=== PATIENT | male | born 1995 | race African-American/Black ===

== ENCOUNTER 2025-04-18 19:17 | Emergency (ER) | payer OTHER, SELFPAY ==
--- OUTSIDE RECORDS SUMMARY | 2025-04-13 08:15 | XMS_ITS ---
Author Organization [facility] [employer] Address [address] [place] [address] Care Team Providers Care Crystalizer Name Role Phone Jahaira Mcmillan Primary Care Provider Michael Estrada Unavailable [phone] Allergies No Known Allergies REASON FOR VISIT ER FU-abdominal pain on left-mn, Consent forms on file-VS, Tele Video MED Established, Visit conducted by TeleVideo Social History Sex Assigned At : Social History Observation Description Sex Assigned At Male Problems Problem Type SNOMED Code ICD Code Onset Dates Problem Status W/U Status Risk Notes Problem Information temporarily unavailable Thrombocytopenia (D69.6) Active confirmed Encounters Encounter Location Date Provider Diagnosis [facility] [address] [place] [id number] 04/13/2025 Michael Estrada Left lower quadrant pain R10.32 ; Thrombocytopenia D69.6 and Hepatosplenomegaly R16.2 Assessments Encounter Date Diagnosis (ICD Code) Assessment Notes Treatment Notes Treatment Clinical Notes Section Notes 04/13/2025 Left lower quadrant pain (ICD-10 - R10.32) Reviewed ER note - advised him to call [facility] for follow up appointment given persistent pain. Scheduled in person for with pcp. Advised if he hasn't heard from hematology by to let pcp know and discuss referral. Continue tylenol as needed for pain. Reviewed severe abd swelling or unexplained bleeding as ER return precautions. Coding: Use UPDATED E&M code. Also applies when carrying over a previous visit. 04/13/2025 Thrombocytopenia (ICD-10 - D69.6) Coding: Use UPDATED E&M code. Also applies when carrying over a previous visit. 04/13/2025 Hepatosplenomegaly (ICD-10 - R16.2) Coding: Use UPDATED E&M code. Also applies when carrying over a previous visit. Plan Of Treatment Treatment Notes Assessment Notes Left lower quadrant pain Reviewed ER not e - advised him to call [facility] for follow up appointment given persistent pain. Scheduled in person for with pcp. Advised if he hasn't heard from hematology by to let pcp know and discuss referral. Continue tylenol as needed for pain. Reviewed severe abd swelling or unexplained bleeding as ER return precautions. Next Appt Details Follow Up: prn, Reason: Progress Notes * Neil KING CarloOB: (29 yo M)Acc No.[id number]:04/13/2025 Patient: Neil HINTONquan Provider: TRI Savage :1995 A ge:29 Y S ex:Male Date:04/13/2025 External Visit ID:[id number] Address:[address] [place] [address] Pcp:Jahaira Mcmillan Subjective: * Chief Complaints: * E R FU-abdominal pain on left-mn, Consent forms on file-VSTele Video MED EstablishedVisit conducted by TeleVideo * HPI: T elehealth Video Session: Telehealth Video Consents V erbal telehealth consent: Yesenia y Name is __. This visit is occurring via audio-visual. You can opt-out or refuse at any time. Do I have your consent (or consent for your minor child) for this audio-visual visit? I s written consent in patient documents: Y es Telehealth Video Visit Verifications P dayanadelaida states they joined from a secure and private location. Y shante P atient's Location A t home B H Need: Warm Hand Off W ould patient benefit from behavioral health services N o G eneral: 29 y/o male for ER f/u abd pain CT scan showed: Probable volume overload Mild hepatosplenomegaly Nonspecific enterocolic edema Trace ascites CBC showed thrombocytopenia and received referral from ER to hematology He hasn't received phone call from them as of yet Continues with LLQ pain +constipation Severe pain started after taking edible He did have endoscopy/colonoscopy in 2023 Previously seen by [facility]. * ROS: A ll other pertinent ROS negative, other than those listed above and in the HPI. * Medical History: * Medications: N one * Allergies: N .K.D.A.no[Allergies Verified] Objective: * Vitals: * Examination: G eneral Examination: General Appearance: a lert, no acute distress. Neck: s upple. Lungs: s peaking in complete sentences without sob. Skin: n ormal, no rash. Psych: a ppropriate. Assessment: * Assessment: 1. L eft lower quadrant pain - R10.32 (Primary) 2 . T hrombocytopenia - D69.6 3 . H epatosplenomegaly - R16.2 Coding: Use UPDATED E&M code . Also applies when carrying over a previous visit. Plan: * Treatment: * Procedure Codes: 1 159F MED LIST DOCD IN [id number] RVW MEDS BY RX/DR IN [facility] * Follow Up: p rn * Billing Information: * Visit Code: 70180 Est Pt Video Visit, MDM Low or more than 20min (frm. 25865). * Procedure Codes: 1159F MED LIST DOCD IN [facility]. 1160F RVW MEDS BY RX/DR IN [facility]. * Sign off status: Completed true * Provider: TRI Savage Date: 04/13/2025 Generated for Nelida Israel/Tomy on: 04/18/2025 08:12 PM EDT History and Physical Notes * HPI (History of Present Illness) Category Sub-Category Detail Notes Category Not es BH Need Warm Hand Off Would patient benefit from behavioral health services: No Telehealth Video Session Telehealth Video Consents Verbal telehealth consent:: My Name is __. This visit is occurring via audio-visual. You can opt-out or refuse at any time. Do I have your consent (or consent for your minor child) for this audio-visual visit? Is written consent in patient documents: : Yes Telehealth Video Visit Verifications Pat ient states they joined from a secure and private location.: Yes Patient's Location: At home Examination Category Sub-Category Detail Notes Category Not es General Examination Neck: supple Lungs: speaking in complete sentences without sob General Appearance: alert, no acute dist ress Skin: normal, no rash Psych: appropriate
--- OUTSIDE RECORDS SUMMARY | 2025-04-16 05:00 | XMS_ITS ---
Author Organization [facility] Address [address] [place] [address] Care Team Providers Care Freelance Displayer Name Role Phone Jahaira Mcmillan Primary Care Provider Allergies No Known Allergies REASON FOR VISIT follow up ER visit, persistent abdominal pain -GABRIEL // Rachelle confirmed 04/14/25 9:03am, Pt presents today with pain in LLQ, trouble walking into exam room, CHC BMI Above Normal Social History Tobacco Use: Social History Observation Description Date Details (start date - stop date) Never Smoker NA - NA Sex Assigned At : Social History Observation Description Sex Assigned At Male Smoking Question Answer Notes Are you a: never smoker Alcohol Question Answer Notes Did you have a drink contain ing alcohol in the past year? Yes How often did you have a dri nk containing alcohol in the last year Monthly or less (1 point) Points 1 Interpretation Negative Sexual History Question Answer Notes Had sex in the past 12 months Yes with Both Men and Women Vital Signs Temperature 98.4 degrees Fahrenheit 04/16/20 25 Blood pressure systolic 133 mm Hg 04/16/20 25 Blood pressure diastolic 76 mm Hg 025 Respiratory Rate 18 /min 04/16/2025 Height 69 in 04/16/2025 Weight 174.4 lbs 04/16/2025 BMI 25.75 kg/m2 04/16/2025 Oximetry 95 % 04/16/2025 Encounters Encounter Location Date Provider Diagnosis [address] [address] 04/16/2025 Jahaira Mcmillan Acute abdominal pain R10.9 ; Shortness of breath R06.02 and Thrombocytopenia D69.6 Assessments Encounter Date Diagnosis (ICD Code) Assessment Notes Treatment Notes Treatment Clinical Notes Section Notes 04/16/2025 Acute abdominal pain (ICD-10 - R10.9) 04/16/2025 Shortness of breath (ICD-10 - R06.02) 04/16/2025 Thrombocytopenia (ICD-10 - D69.6) -review of labs from ED visit demonstrating platelet count of 76. low chronic anemia evident per previous blood work, H/H improving from previous currently ~34. 04/16/2025 Other -Limited exam performed in favor of expedited transfer to higher level of care. -[facility] contacted and verbal report given to Mercedes through [facility] to notify of pending arrival. Plan Of Treatment Treatment Notes Assessment Notes Thrombocytopenia -review of labs from ED visit demonstrating platelet count of 76. low chronic anemia evident per previous blood work, H/H improving from previous currently ~. Other -Limited exam performed in favor of expedited transfer to higher level of care. -[facility] contacted and verbal report given to Mercedes through [facility] to notify of pending arrival. Progress Notes * PAULONeil CAR CarloOB: (29 yo M)Acc No.[id number]:04/16/2025 Progress Note Patient: Neil HINTON Provider: Nicole Mcmillan APRN :1995 A ge:29 Y S ex:Male Date:04/16/2025 External Visit ID:[id number] Address:[address] [place] [address] Subjective: * Chief Complaints: * 1 . follow up ER visit, persistent abdominal pain -GABRIEL // Rachelle confirmed 04/14/25 9:03am. 2. Pt presents today with pain in LLQ, trouble walking into exam room. 3. CHC BMI Above Normal. * HPI: P EG: Pain Functional Assessment W hat number best describes your pain on average in the past week? (Scale 0-10) 8 W hat number best describes how, during the past week, pain has interfered with your enjoyment of life? (Scale 0-10) 8 W hat number best describes how, during the past week, pain has interfered with your general activity? (Scale 0-10) 8 S core (Average of above, Scale 0-10): 8 .00 * Medical History: B ipolar disorder. * Social History: L anguage Spoken Language Spoken Case spring[employer] 07/16/2020 RHONDA H ow do you like To Learn : V isual P atient's perception of literacy I read well in: [employer] [facility] S mokers in household : yes, Pt states he smokes MJ. L iving With : self. M arital Status : single. O ccupation : hired at [employer]. S exually Active : heterosexual. S moking Are you a: n ever smoker A lcohol Did you have a drink containing alcohol in the past year? Y es How often did you have a drink containing alcohol in the last year M onthly or less (1 point) Points 1 Interpretation N egative * Allergies: N .K.D.A. Objective: * Vitals: M A/Nurse: [id number], Temp:98.4F, Ht: 69 in, Wt: 174.4 lbs, BMI:25.75Index, BP:133/76mm Hg, HR:68, RR:18, O2 Sat:95, Pain Scale: 10, Smoking: Never. * Physical Examination: Assessment: * Assessment: 1. S hortness of breath - R06.02 2 . A cute abdominal pain - R10.9 (Primary) 3 . T hrombocytopenia - D69.6 Plan: * Treatment: 2. O thers Notes: -Limited exam performed in favor of expedited transfer to higher level of care. -[facility] contacted and verbal report given to Mercedes through [facility] to notify of pending arrival. * Preventive Medicine: Patient Counseling: N utrition and Physical Activity Above Normal BMI Follow-up L tiffanyestyle education regarding diet,Giving encouragement to exercise * Billing Information: * Visit Code: * Procedure Codes: * Sign off status: Pending * Provider: Nicole Mcmillan APRN Date: 04/16/2025 Generated for Nelida mckeon/[place]/Tomy on: 04/18/2025 08:12 PM EDT History and Physical Notes * HPI (History of Present Illness) Category Sub-Category Detail Notes Category Not es PEG Pain Functional Assessment What number best describes your pain on average in the past week? (Scale 0-10): 8 What number best describes h ow, during the past week, pain has interfered with your enjoyment of life? (Scale 0-10): 8 What number best describes h ow, during the past week, pain has interfered with your general activity? (Scale 0-10): 8 Score (Average of above, Scale 0-10):: 8 .00
--- OUTSIDE RECORDS SUMMARY | 2025-04-16 09:40 | XMS_ITS | Encounter Summary ---
Author Organization Formerly [facility] Address [address] [place] [id number] Care Team Providers Care Shipping Clerk Name Role Phone [facility] Primary Care Provider + Reason for Visit * Reason Comments Abdominal Pain * Auth/Cert (Routine) Specialty Diagnoses / Procedures Referred By Contac t Referred To Contact Diagnoses Splenic infarct Procedures N/A Referral ID Status Reason Start Date Expiration Date Visits Re quested Visits Authorized [id number] 1 1 Encounter Details Date Type Department Care Team (Late st Contact Info) Description 04/16/2025 9:40 AM EDT - 04/18/2025 11:54 AM EDT Hospital Encounter [facility] [address] [place] [address] Patrick Harkins MD [address] [place] [address] Erma Ballesteros MD Hospitalist Program [address] [place] [address] Juliet Moralez MD [address] [place] [address] Chikis Costa MD [address] [place] [address] Splenic infarct (Primary Dx); Abdominal pain Discharge Disposition: Home or Self Care Social History Tobacco Use Types Packs/Day Years Used Date Smoking Tobacco: Never Smokeless Tobacco: Never Alcohol Use Standard Drinks/Week Comments Yes 0 (1 standard drink = 0.6 oz pur e alcohol) social [facility] Utilities Answer Date Recorded In the past 12 months has th e electric, gas, oil, or water company threatened to shut off services in your home? No 04/17/2025 AUDIT-C Answer Date Recorded Q1: How often do you have a drink containing alc ohol? Monthly or less 04/16/2025 Q2: How many drinks containi ng alcohol do you have on a typical day when you are drinking? 1 or 2 04/16/2025 Q3: How often do you have si x or more drinks on one occasion? Never 04/16/2025 PHQ-2 Answer Date Recorded PHQ-2 Total Score 2 04/16/2025 Hunger Vital Sign Answer Date Recorded Within the past 12 months, y ou worried that your food would run out before you got the money to buy more. Never true 04/17/20 25 Within the past 12 months, t he food you bought just didn't last and you didn't have money to get more. Never true 04/17/2025 PRAPARE - Transportation Answer Date Re corded In the past 12 months, has l ack of transportation kept you from medical appointments or from getting medications? No 03/21 In the past 12 months, has l ack of transportation kept you from meetings, work, or from getting things needed for daily living? No 04/17/2025 Housing Stability Vital Sign Answer Mont[place] e Recorded In the last 12 months, was t here a time when you were not able to pay the mortgage or rent on time? No 04/17/2025 In the past 12 months, how m any times have you moved where you were living? 0 04/17/2025 At any time in the past 12 m [place], were you homeless or living in a jail (including now)? No 04/17/2025 Sex and Gender Information Value Date Recorded Sex Assigned at Male 06/09/2023 8:17 AM EDT Legal Sex Male 6:41 PM EDT Gender Identity Male 06/09/2023 8:17 AM EDT Sexual Orientation Pansexual 04/28/2024 7: 04 AM EDT documented as of this encounter Last Filed Vital Signs Vital Sign Reading Time Taken Comments Blood Pressure 138/73 04/18/2025 7:19 AM EDT Pulse 64 04/18/2025 7:19 AM EDT Temperature 37.8 C (100 F) 04/18/2025 7:19 AM EDT Respiratory Rate 18 04/18/2025 7:19 AM EDT Oxygen Saturation 94% 04/18/2025 7:19 AM EDT Inhaled Oxygen Concentration - - Weight 78.2 kg (172 lb 6.4 oz) 04/16/2025 2:26 P M EDT Height 175.9 cm (5' 9.25 ) 04/16/2025 2:26 PM ED T Body Mass Index 25.27 04/16/2025 2:26 PM EDT documented in this encounter Functional Status * Audit-C Score Answer Date of Assessment Author 1 04/16/2025 2:00 PM EDT Elisabeth Connor RN * Question Answer Date of Assessment Author Q1: How often do you have a drink containing alcohol? Monthly or less 04/16/2025 2:00 PM EDT Elisabeth Connor RN Q2: How many drinks containing alcohol do you have on a typical day when you are drinking? 1 or 2 04/16/2025 2:00 PM EDT Elisabeth Connor RN Q3: How often do you have six or more drinks on one occasion? Never 04/16/2025 2:00 PM EDT Elisabeth Connor RN * Question Answer Date of Assessment Author Little interest or pleasure in doing things Several days 04/16/2025 2:00 PM EDT Elisabeth Connor RN Feeling down, depressed, or hopeless Several days 04/16/2025 2:00 PM EDT Elisabeth Connor RN * Over the past 2 weeks, how often have you been bothered by any of the following problems? Question Answer Date of Assessment Author Patient Health Questionnaire -2 Score 2 04/16/2025 2:00 PM EDT Elisabeth Connor RN documented as of this encounter Discharge Summaries * Chikis Costa MD - 04/18/2025 11:54 AM EDT Images from the original note were not included. Inpatient Discharge Summary [facility] Brief Overview Patient Demographics Name: Neil King :1995 Admission Date: 04/16/2025 Admitting Provider: Erma Ballesteros MD Discharge Date: 04/18/2025 Discharge Provider: No att. providers found Discharge Disposition: Home Or Self Care Primary Care Provider at Discharge: [facility] Primary Discharge Diagnosis Principal Problem: Splenic infarct (POA: Yes) Active Problems: Anemia (POA: Yes) Elevated bilirubin (POA: Yes) Thrombocytopenia (POA: Yes) Sickle cell trait (POA: Yes) Abdominal pain (POA: Unknown) Resolved Problems: Discharge Medications Discharge Medications NEW MEDICATIONS apixaban 5 MG tablet; Quantity: 180 tablet; Commonly known as: ELIQUIS; 5 mg, Oral, 2 times daily CONTINUED MEDICATIONS ARIPiprazole 10 MG tablet; Commonly known as: ABILIFY; 10 mg, Oral, Daily Future Appointments Date Time Provider Department Center 05/11/2025 3:00 PM Gary Jeffery MD [facility] Follow Up Information [facility] Sheldon Caicedo MD Specialty: Hematology Oncology, Medical Oncology Active Issues Requiring Follow-up Faculty Dean outpatient. Hb electrophoresis Incidental hospital findings:none Test Results Pending at Discharge Pending Labs Order Current Status Hemoglobin S Post Transfusion Assessment In process Details of Hospital Stay Presenting Problem/History of Present Illness 29 y.o. male with a history of sickle cell trait who was sent in by his PCP due to a 10-day historyof left upper quadrant abdominal pain. He was reportedly in excruciating pain at his PCPs office. Denied any nausea, vomiting, recent falls or trauma or other GI symptoms. On arrival vitals were within normal limits. Labs showed hemoglobin 10.4 which is close to baseline, T. bili 1.9, otherwise unremarkable. EKG showed sinus bradycardia with nonspecific ST abnormalities. CT abdomen pelvis showed splenomegaly with possible splenic infarcts. There was a question of splenic laceration. Patient wasevaluated by trauma surgery, laceration thought to be much less likely. Patient was admitted for further management of splenic infarcts. Hospital Course Splenic infarct Sickle cell trait Has history of sickle cell trait but no significant problems in the past Presented with left upper quadrant abdominal pain for about 1 week Imaging revealed question of splenic infarct versus laceration Echo showed normal biventricular systolic function, no LV thrombus Telemetry has shown NSR - Appreciate trauma surgery recommendations. No acute intervention, low suspicion for splenic laceration. - Appreciate hematology recommendations. Case was discussed with Dr. Caicedo. Patient was started onheparin infusion , he remained stable. Will transition him to [facility] Patient medically stable for discharge. Outpatient follow-up with bundle tier and labeler for further workup including thrombophilia workup Abdominal pain Presumably secondary to splenic infarct -Was managed with IV Dilaudid. The pain is better today, continue Tylenol as needed Anemia Chronic in the setting of sickle cell trait with some prior evidence of iron deficiency. Hemoglobin electrophoresis ordered , follow-up results with the bundle tier and labeler suspect patient - Patient Shinto, will not accept blood transfusion Elevated bilirubin No RUQ pain - Monitor as outpatient Thrombocytopenia In the setting of splenomegaly -Resolved Procedures: Diagnostic Studies: Notable labs are: Lab Results Component Value Date WBC 7.5 04/18/2025 HGB 11.3 (L) 04/18/2025 HCT 34.3 (L) 04/18/2025 PLT 164 04/18/2025 Lab Results Component Value Date NA 137 04/18/2025 K 4.3 04/18/2025 CL 98 04/18/2025 CO2 25 04/18/2025 BUN 10 04/18/2025 CREAT 1.0 04/18/2025 GLUC 91 04/18/2025 Lab Results Component Value Date CALCIUM 9.3 04/18/2025 MG 2.0 04/16/2025 Notable imaging : No results found. No results found. CTA Abdomen+pelvis w w/o contrast Result Date: 04/16/2025 Imaging Impression Splenomegaly 15 cm. Again noted are large multifocal areas of sharply demarcatedhypoattenuation, similar to prior exam. No evidence of active extravasation. Given history of sickle cell disease, most likely representing acute infarcts. Lacerations are considered less likely. Small amount of free fluid in the abdomen and pelvis, slightly increased since prior exam. No free air. CT Abdomen+pelvis w/contrast Result Date: 04/16/2025 Imaging Impression Splenomegaly and markedly abnormal spleen most consistent with splenic infarcts.Alternatively but less likely splenic laceration cannot be excluded. Correlate for trauma. In lightof the patient having sickle cell trait favor splenic infarction. CT Abdomen+pelvis w/contrast Result Date: 04/11/2025 Imaging Impression 1. Probable volume overload. 2. Mild hepatosplenomegaly. 3. Nonspecific enterocolic edema, may be secondary to systemic factors for enterocolitis. 4. Trace ascites. Wound/Incision Pictures: Physical Exam at Discharge Discharge Condition: good Last Vitals: Pulse:64,Resp:18,BP:138/73,SpO2:94 %,Weight: 78.2 kg (172 lb 6.4 oz) BMI: Body mass index is 25.27 kg/m??. Temp Last 24 hrs: Temp Min: 98.8 ??F (37.1 ??C) Max: 100 ??F (37.8 ??C) Physical Exam Constitutional: Appearance: Normal appearance. HENT: Head: Normocephalic and atraumatic. Eyes: Extraocular Movements: Extraocular movements intact. Pupils: Pupils are equal, round, and reactive to light. Cardiovascular: Rate and Rhythm: Normal rate and regular rhythm. Pulmonary: Effort: Pulmonary effort is normal. Breath sounds: Normal breath sounds. Abdominal: General: Abdomen is flat. Bowel sounds are normal. Palpations: Abdomen is soft. Tenderness: There is no abdominal tenderness. Musculoskeletal: Cervical back: Normal range of motion and neck supple. Neurological: Mental Status: He is alert. Discharge Orders No discharge procedures on file. Code Status: Code Status Procedures Full Code Activity Restrictions: (including driving, showering, working); Advised to avoid contact sports Time Spent on Discharge Total time spent for discharge:35 minutes Time was spent in educating the patient, making a comprehensive discharge plan and discussion with the staff regarding the discharge plan, medication reconciliation and discharge summary Chikis Costa MD 04/18/2025 2:36 PM documented in this encounter Medications at Time of Discharge ARIPiprazole (ABILIFY) 10 MG tablet Take 1 tablet (10 mg total) by mouth daily. apixaban (ELIQUIS) 5 MG tabletIndications :Splenic infarct Take 1 tablet (5 mg total) by mouth 2 (two) times a day. 180 tablet 04/18/2025 acetaminophen (TYLENOL) 325 MG tablet Take 650 mg by mouth 4 times daily (every 6 hours) as needed for mild pain. 11/08/2021 risperiDONE (RisperDAL) 2 MG tablet Take 4 mg by mouth nightly. 09/22/2021 11/08/2021 documented as of this encounter Progress Notes * Sheldon Caicedo MD - 04/18/2025 11:27 AM EDT Hematology/Oncology Note Name: Neil King Age: 29 y.o. Sex: male Subjective History of Present Illness Follow-up for patient with question of splenic infarct. Reported history of sickle trait. Stable otherwise. Excellent health in general. Hospitalized for evaluation of abdominal pain. Imaging with evidence of splenic infarct. Some concern about potential laceration but less likely. Initiated anticoagulation. Pain symptoms seem improved. Hemoglobin stable Review of Systems 5 Point review of systems was obtained. Pertinent positives and negatives outlined in the HPI. reports that he has never smoked. He has never used smokeless tobacco. Objective Medications: Review Allergies[1] Physical Exam Vitals: 04/17/25 2050 04/18/25 0045 04/18/25 0455 04/18/25 0719 BP: 130/74 138/73 BP Location: Left arm Left arm Patient Position: Lying Sitting Pulse: 63 64 Resp: 18 18 Temp: 98.8 ??F (37.1 ??C) 100 ??F (37.8 ??C) TempSrc: Oral Oral SpO2: 95% 93% 95% 94% Weight: Height: Patient is overall alert and oriented in no distress. Sclerae anicteric pupils equal round reactiveto light. Oropharynx is clear without erythema exudates. Neck supple without lymphadenopathy. Lungsclear to auscultation bilaterally without wheeze. Heart regular rate and rhythm without murmurs rubs gallops. Abdomen soft nontender nondistended. Lower extremities without edema. No skin rash. Labs: Labs reviewed Assessment & Plan Assessment Follow-up for patient with presumed splenic infarct. Plan 1. Splenic infarct-patient was initiated on anticoagulation with heparin overnight. Pain is improved. Less tender on exam. Would continue with anticoagulation. Reasonable to transition to direct oralanticoagulant. Rivaroxaban or apixaban. Will coordinate outpatient follow-up in 1 to 2 months. Primary question is overall duration of anticoagulation. May be a role for longer-term anticoagulation but can be discussed. Consider any need for thrombophilia and PNH evaluation. 2. Anemia-chronic anemia likely related to sickle trait. Hemoglobin electrophoresis is pending to confirm. Received IV iron.Will recheck moving forward and can further replete if needed. Sign: Sheldon Caicedo MD 04/18/2025 11:27 AM Oncology History: Oncology History No problem history exists. [No matching plan found] [1] No Known Allergies * Juliet Moralez MD - 04/17/2025 9:20 AM EDT Progress Note Hospital Day: 2, Admit Date: 04/16/2025 Assessment and plan: Mr. King is a 29 y.o. male with a history of sickle cell trait who was sent in by his PCP due toa 10-day history of left upper quadrant abdominal pain. He was reportedly in excruciating pain at his PCPs office. Denied any nausea, vomiting, recent falls or trauma or other GI symptoms. On arrivalvitals were within normal limits. Labs showed hemoglobin 10.4 which is close to baseline, T. bili 1.9, otherwise unremarkable. EKG showed sinus bradycardia with nonspecific ST abnormalities. CT abdomen pelvis showed splenomegaly with possible splenic infarcts. There was a question of splenic laceration. Patient was evaluated by trauma surgery, laceration thought to be much less likely. Patient was admitted for further management of splenic infarcts. Assessment & Plan Splenic infarct Sickle cell trait Has history of sickle cell trait but no significant problems in the past Presented with left upper quadrant abdominal pain for about 1 week Imaging revealed question of splenic infarct versus laceration Echo showed normal biventricular systolic function, no LV thrombus Telemetry has shown NSR - Appreciate trauma surgery recommendations. No acute intervention, low suspicion for splenic laceration. - Appreciate hematology recommendations. Case discussed with Dr. Caicedo. Will start heparin infusion and monitor for any bleeding given the above question of possible laceration. If he remains stableon heparin for the next 24 hours we will transition to DOAC tomorrow. - Continue fluids and supportive care Abdominal pain Presumably secondary to splenic infarct - Continue IV Dilaudid through today then will trial transition to oral pain medications Anemia Chronic in the setting of sickle cell trait with some prior evidence of iron deficiency. - Follow-up iron panel. Will replete with IV iron if low. - Hemoglobin electrophoresis ordered - Patient does not except blood transfusions, Shinto Elevated bilirubin No RUQ pain - Trend LFTs Thrombocytopenia In the setting of splenomegaly I have updated the Patient and addressed their concerns. Care plan was discussed with RN [facility] following: Dr. Caicedo We reviewed side effects of high risk medications: dilaudid Dispo: Home/independent Barriers to patient transition/ medical necessity requiring continued inpatient stay: Ongoing severe abdominal pain requiring IV opiate pain medications, remains on fluids, heparin infusion for 24 hours to monitor closely for bleeding Quality metrics: # Telemetry: Active Telemetry Order Indication - Other, Please Specify splenic infarcts, rule out arrythmia Continue Telemetry?: Yes Other splenic infarcts, rule out arrhythmia # Diet: Diet Regular # Code status: Full Code # Argueta catheter: No Active Urethral Catheter (Argueta) Order # Central lines: # Expected Date of Discharge: 04/17/2025 {Click to update LOBO: [id number]} VTE Time Out IMPROVE SCORE: 1 (04/16/2025 12:29 PM) Interpretation - Low Risk Chemical Prophylaxis heparin (porcine) 1000 unit/mL injection 6,300 Units Intravenous Once heparin (porcine) IV infusion 25,000 units in 500 mL 0.45% NaCl (premix) Intravenous Continuous heparin (porcine) 1000 unit/mL injection 2,300 Units Intravenous Every 6 hours PRN heparin (porcine) 1000 unit/mL injection 1,600 Units Intravenous Every 6 hours PRN Mechanical Prophylaxis SCDs are ordered - Bilateral (Knee High) Patient declined SCD use, Please review Subjective: Chief complaint Chief Complaint Patient presents with Abdominal Pain Patient is being seen for acute medical problems and follow-up for chronic medical issues as mentioned in the assessment and plan above. # Event overnight: No acute events reported Mr. King was seen earlier today. he reported feeling okay today. He is still having some abdominal pain, tells me it is a little better than yesterday but at worst is an 8/10. He does think the pain medication is helping. Objective: Last 3 Filed Values 04/16/25 1929 04/16/25 2359 04/17/25 0751 BP: (!) 147/65 134/77 (!) 146/84 Pulse: 77 62 68 Resp: (!) 22 18 17 Temp: 98.5 ??F (36.9 ??C) 98.6 ??F (37 ??C) 98.9 ??F (37.2 ??C) TempSrc: Oral Oral Oral SpO2: 96% 95% 93% SpO2 Min: 93 % Max: 96 % O2 Device: room air (none) Weight: on admission: 79.4 kg (175 lb), (04/16/2025 9:39 AM) Recent: 78.2 kg (172 lb 6.4 oz), (04/16/2025 2:26 PM) Last Documented Bowel Movement - 04/16/25 (04/16/25 1519) Intake/Output Summary (Last 24 hours) at 04/17/2025 0920 Last data filed at 04/17/2025 0600 Gross per 24 hour Intake 1270 ml Output 600 ml Net 670 ml Gen: resting in bed, no acute distress HEENT: NCAT, moist oral mucosa Pulm: Clear to auscultation bilaterally, no increased work of breathing, no accessory muscle use CV: RRR, S1-S2 auscultated with no murmurs, no JVD, no leg edema Abd: Soft, nontender, nondistended, bowel sounds active Ext: No edema bilaterally Skin: No suspicious rashes or palpable lesions : No CVA tenderness or suprapubic tenderness Neuro: Alert and oriented to person place and time, speech fluent, no facial asymmetry, moving all 4 extremities spontaneously, sensation grossly intact Scheduled medications 04/17/25 9:20 AM As needed medications: heparin (porcine), 80 Units/kg, Intravenous, Once senna-docusate, 2 tablet, Oral, Nightly acetaminophen bisacodyl heparin (porcine) heparin (porcine) HYDROmorphone HYDROmorphone HYDROmorphone lactulose naloxone Current infusions: heparin (porcine) IV infusion - thromboembolic/standard/full dose protocol, 15 Units/kg/hr sodium chloride, 100 mL/hr, Last Rate: 100 mL/hr (04/17/25 4637) Diagnostic studies: I have reviewed the labs and ordered new labs if needed. Recent Labs 04/16/25 1004 04/16/25 1751 04/17/25 0050 04/17/25 0546 04/17/25 0811 WBC 9.2 -- -- 7.8 7.8 HGB 10.4* 10.2* 9.8* 10.2* 10.2* HCT 31.6* 31.0* 29.3* 31.3* 30.7* PLT 128* -- -- 124* 132* Recent Labs 04/16/25 1004 04/17/25 0546 NA 138 139 K 4.4 4.4 CO2 25 CL 100 103 BUN 11 10 CREAT 1.0 1.0 CALCIUM 9.3 8.9 MG 2.0 -- BILITOT 1.9* -- ALKPHOS 56 -- AST 30 -- ALT 12 -- ALBUMIN 4.2 -- Recent Labs 04/17/25 0811 PTT 28 INR 1.2 No results for input(s): SARSCOV2 , INFLAV , INFLBV in the last 72 hours. Blood Culture Results Since Admission No results found for this visit on 04/16/25. Urine Culture Results Since Admission No results found for this visit on 04/16/25. Imaging Studies: All imaging studies were independently reviewed and interpreted Juliet Moralez MD * Sheldon Caicedo MD - 04/17/2025 7:34 AM EDT Hematology/Oncology Note Name: Neil King Age: 29 y.o. Sex: male Subjective History of Present Illness Initial evaluation of patient with question of splenic infarct. Patient is in overall good medical condition at baseline. Patient does have history of sickle trait but has never had any significant problems. Presented to the hospital with progressive left upper quadrant pain symptoms. Occurring over the last 7 to 10 days. Had been seen in the ER several days ago with no acute findings. Returns toER yesterday given worsening pain. Imaging now with a question of splenic infarct. Patient continues to have pain symptoms but is stable otherwise. Patient specifically denies any trauma. Review of Systems 5 Point review of systems was obtained. Pertinent positives and negatives outlined in the HPI. reports that he has never smoked. He has never used smokeless tobacco. Objective Medications: Reviewed Allergies[1] Physical Exam Vitals: 04/16/25 1314 04/16/25 1426 04/16/25 1929 04/16/25 2359 BP: 128/69 117/76 (!) 147/65 134/77 BP Location: Left arm Left arm Left arm Left arm Patient Position: Lying Lying Sitting Lying Pulse: 60 (!) 59 77 62 Resp: 12 16 (!) 22 18 Temp: 98.1 ??F (36.7 ??C) 98.9 ??F (37.2 ??C) 98.5 ??F (36.9 ??C) 98.6 ??F (37 ??C) TempSrc: Oral Oral Oral Oral SpO2: 95% 94% 96% 95% Weight: 78.2 kg (172 lb 6.4 oz) Height: 1.759 m (5' 9.25 ) Patient is overall alert and oriented in no distress. Sclerae anicteric pupils equal round reactiveto light. Oropharynx is clear without erythema exudates. Neck supple without lymphadenopathy. Lungsclear to auscultation bilaterally without wheeze. Heart regular rate and rhythm without murmurs rubs gallops. Patient is tender to palpation in the left upper quadrant. Lower extremities without edema. No skin rash. Assessment of psychosocial status: Patient's mood is good. Well-adjusted. No acute psychosocial issues. Plan for addressing any psychosocial concerns: Overall good structure at this time. Ongoing in corporate security officer. Pain: 7 Plan for addressing pain: As outlined in assessment and plan below. ECOG (0) Fully active, able to carry on all predisease performance without restriction Treatment toxicities: Reviewed in detail. Outlined in assessment and plan below. Labs: Labs reviewed Assessment & Plan Assessment Evaluation of patient with known history of sickle trait. Patient seen now within the context of left upper quadrant pain and imaging studies concerning for splenic infarct. Patient continues to havepain requiring pain medications. He is stable otherwise. Hemoglobin stable. Mild thrombocytopenia. Plan 1. Splenic infarct-concern overall for splenic infarct. Potential etiology to discomfort and splenomegaly. Will discuss with medical team and surgical team. Ideally would like to initiate anticoagulation. Potentially heparin with close monitoring of CBC. Can consider other testing moving forward including thrombophilia panel. May have some hypercoagulability related to sickle trait. Agree with echocardiogram and evaluation for possible embolic source. 2. Anemia-has chronic anemia. Likely related to sickle trait but also in the past with some evidence of iron deficiency. Would recheck iron panel. Can provide IV iron if indicated. Patient is Shinto not accepting of transfusions at goal maximize anemia. Do not have clear documentation of patient's sickle trait. May want to order hemoglobin electrophoresis moving forward to clarify. 3. Abdominal pain-presumed secondary to splenomegaly and potential infarct. Continue with pain medications. Sign: Sheldon Caicedo MD 04/17/2025 7:34 AM Oncology History: Oncology History No problem history exists. [No matching plan found] [1] No Known Allergies * Jackie Ortiz PA-C - 04/17/2025 6:10 AM EDT Progress Note Principal Problem: Splenic infarct (POA: Yes) Active Problems: Anemia (POA: Yes) Elevated bilirubin (POA: Yes) Thrombocytopenia (POA: Yes) Sickle cell trait (POA: Yes) Resolved Problems: Assessment & Plan Assessment: 29M with sickle cell trait (states that he has never had a sickle cell crisis), GERD, prior GI bleed, anxiety, bipolar 1, PTSD, anemia, who presented to the ED with abdominal pain for last 10 days. Denies any abdominal trauma. Patient was seen in the ED on 04/[address] scan demonstrates areas in the spleen which appear like infarcts, as well as areas that appear consistent with hematoma. CTA obtained and demonstrates no extravasation, small amount of free fluid in abd/pelvis.Vitally stable. No acute events overnight. H/H this AM, 10.2/31.3 (04/17.3). Plan: - Diet: Regular - Okay for DVT Ppx/anticoagulation from trauma/surgical standpoint - Recommend to continue to trend H/H - Pain Regimen - Tylenol PRN - Dilaudid PRN - Trauma surgery to sign off, Please reach out to surgical service with any questions or concerns, available on TT ACS surgery PA Case discussed with Dr. Vasquez Please reach out to [facility] Surgery ALIZA via TT with any questions or concerns. VTE and Expected Discharge Documentation: VTE Time Out IMPROVE SCORE: 1 (04/16/2025 12:29 PM) Interpretation - Low Risk Chemical Prophylaxis heparin (porcine) 1000 unit/mL injection 6,300 Units Intravenous Once heparin (porcine) IV infusion 25,000 units in 500 mL 0.45% NaCl (premix) Intravenous Continuous heparin (porcine) 1000 unit/mL injection 2,300 Units Intravenous Every 6 hours PRN heparin (porcine) 1000 unit/mL injection 1,600 Units Intravenous Every 6 hours PRN Mechanical Prophylaxis SCDs are ordered - Bilateral (Knee High) Patient declined SCD use, Please review Patient currently has an LOBO of 04/17/2025 Click to update the Expected Discharge Date I have reviewed the VTE risk assessment and ordered prophylaxis, and updated the Expected DischargeDate as indicated Subjective Chief Complaint: I am doing okay Reports that he is tolerating a diet, has passed flatus. Reports that he has had worsened pain overnight, but is relieved with pain medication. Objective Last Vitals Pulse:68,Resp:17,BP:(!) 146/84,SpO2:93 %,Weight:78.2 kg (172 lb 6.4 oz) Temp Last 24 hrs: Temp Min: 97.5 ??F (36.4 ??C) Max: 98.9 ??F (37.2 ??C) @[id number]@ Date 04/16/25699 - 04/17/2565804/17/25699 - 04/18/25 0659 Shift 7339-8859 9959-5701 7249-2091 24 Hour Total 7926-3387 1116-4125 7587-9970 24 Hour Total INTAKE P.O. 240 0 240 I.V.(mL/kg) 20(0.3) 10(0.1) 30(0.4) IV Piggyback 1000 1000 Shift Total(mL/kg) 1000(12.8) 260(3.3) 10(0.1) 1270(16.2) OUTPUT Urine(mL/kg/hr) 600(1) 600(0.3) Shift Total(mL/kg) 600(7.7) 600(7.7) Weight (kg) 78.2 78.2 78.2 78.2 78.2 78.2 78.2 78.2 Physical Exam Gen: Alert and oriented. No acute distress. Lungs:No respiratory distress. ABD: LUQ tenderness/pain. Soft, non-tender. No rigidity, rebound tenderness or distention. Ext: Moves all extremities. Relevant data reviewed Labs, Notes, Meds, and Radiology Notable labs are: White Blood Cell Count Date Value Ref Range Status 04/17/2025 7.8 4.0 - 11.0 Thou/uL Final Hemoglobin Date Value Ref Range Status 04/17/2025 10.2 (L) 13.0 - 17.7 g/dL Final Hematocrit Date Value Ref Range Status 04/17/2025 31.3 (L) 39.0 - 54.0 % Final Platelet Count Date Value Ref Range Status 04/17/2025 124 (L) 150 - 450 Thou/uL Final Lab Results Component Value Date NA 139 04/17/2025 K 4.4 04/17/2025 CL 103 04/17/2025 CO2 25 04/17/2025 BUN 10 04/17/2025 CREAT 1.0 04/17/2025 GLUC 86 04/17/2025 Lab Results Component Value Date CALCIUM 8.9 04/17/2025 MG 2.0 04/16/2025 Lab Results Component Value Date AST 30 04/16/2025 ALT 12 04/16/2025 ALKPHOS 56 04/16/2025 BILITOT 1.9 (H) 04/16/2025 BILIDIR 04/11/2025 Hemolyzed specimen, test cannot be performed. Recollection of another specimen is recommended. ALBUMIN 4.2 04/16/2025 PROT 6.9 04/16/[address] Scan Report reviewed and Image reviewed Sign Jackie Ortiz PA-C 04/17/2025 7:56 AM This note was created using a voice dictation system. Inadvertent word changes may have occurred. Please feel free to contact me with any questions or for clarification. Cosigned by Amie Vasquez MD at 04/17/2025 3:35 PM EDT Associated attestation - Amie Vasquez MD - 04/17/2025 3:35 PM EDT I have personally reviewed ALEX Ortiz's note. I agree with the history, exam, assessment and plan as detailed in the ALEX note with the following additions/exceptions/observations: Concern for splenic hemorrhage, PSA on initial imaging, no reported traumatic mechanism. CTA recommended and obtained which was reviewed; splenomegaly 15 cm, large multifocal areas of sharply demarcated hypo-attenuation similar to prior exam, no evidence of active extravasation, most likely represent acute infarcts, small amount of free fluid in the abdomen and pelvis (slight increase from prior). Hgb remains stable (10.2 from 10.2 from 9.8). Ok for chemical ppx or anticoagulation from trauma standpoint. Should anticoagulation begin, would trend Hgb. Amie Vasquez MD Acute Care Surgery documented in this encounter H&P Notes * Erma Ballesteros MD - 04/16/2025 12:32 PM EDT HOSPITALIST ADMISSION HISTORY & PHYSICAL Name: Neil King Date of : 1995 PCP: [facility] Admit Date: 04/16/2025 9:40 AM Source of information: Patient, chart CHIEF COMPLAINT: Left upper quadrant pain HPI: This patient is a 29 y.o. male with a past medical history of sickle cell trait coming in withchief complaint as above from his PCP office, sent in by his PCP. Patient was in the ED on April 11 with same complaint and had a CT scan which revealed hepatosplenomegaly and possible enteritis andwas improved and discharged home. He states he has had this left upper quadrant pain for about 10 days and has been worsening and was excruciating today at his PCPs office therefore he was sent to the ED for evaluation and further management. 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 Denies any similarepisodes in the past. Denies any melena hematochezia or hematemesis. No fevers or chills, no nauseaor vomiting. I was contacted for admission and further workup and pain control. He was given IV fluid with NS bolus, IV Toradol and IV morphine in the ED. REVIEW OF SYSTEMS: Pertinent review of systems as above PAST MEDICAL HISTORY: Past Medical History: Diagnosis Date Bipolar 1 disorder (HCC) Hemorrhoid Sickle cell trait PAST SURGICAL HISTORY: Past Surgical History: Procedure Laterality Date COLONOSCOPY N/A 01/22/2024 Procedure: COLONOSCOPY; Surgeon: Kam Costello MD; Location: [facility]; Service: Gastroenterology; Laterality: N/A; ENDOSCOPY UPPER /C BIOPSY N/A 01/22/2024 Procedure: ENDOSCOPY UPPER /C BIOPSY; Surgeon: Kam Costello MD; Location: [facility];Service: Gastroenterology; Laterality: N/A; WISDOM TOOTH EXTRACTION SOCIAL HISTORY: Social History[1] FAMILY HISTORY: Family History Problem Relation Age of Onset Anemia Mother ALLERGIES: Allergies[2] MEDS: Prior to Admission medications Medication Sig Start Date End Date Taking? Authorizing Provider ARIPiprazole (ABILIFY) 10 MG tablet Take 1 tablet (10 mg total) by mouth daily. Yes External Provider, ferrous sulfate 325 (65 FE) MG tablet Take 1 tablet (325 mg total) by mouth daily. Take 2 hours before or 4 hours after acid reducers. External Provider, acetaminophen (TYLENOL) 325 MG tablet Take 650 mg by mouth 4 times daily (every 6 hours) as needed for mild pain. 11/08/21 External Provider, ibuprofen (MOTRIN) 400 MG tablet Take 1 tablet (400 mg total) by mouth 3 times daily (every 8 hours) as needed for mild pain. 02/27/24 04/16/25 Patrick Waddell MD lidocaine (XYLOCAINE) 5 % ointment Apply topically 4 (four) times a day as needed for mild pain. 10/19/23 04/16/25 Jahaira Vora PA-C lidocaine (XYLOCAINE) 5 % ointment Apply topically 4 (four) times a day as needed for mild pain. 02/27/24 04/16/25 Patrick Esquivel MD nitroglycerin (RECTIV) 0.4 % rectal ointment 0.3 inches by Intra-anal route 2 (two) times a day. 10/19/23 04/16/25 Jahaira Vora PA-C polyethylene glycol (miraLAx) 17 g packet Take 1 packet (17 g total) by mouth daily. 02/27/24 04/16/25 Patrick Esquivel MD risperiDONE (RisperDAL) 2 MG tablet Take 4 mg by mouth nightly. 09/22/21 11/08/21 External Provider, PHYSICAL EXAMINATION: Patient Vitals for the past 8 hrs: BP Temp Temp src Pulse Resp SpO2 Height Weight 04/16/25 1152 -- -- -- -- -- 95 % -- -- 04/16/25 1133 121/73 98.2 ??F (36.8 ??C) Oral 61 14 95 % -- -- 04/16/25 1000 129/70 98.6 ??F (37 ??C) Oral 72 16 95 % -- -- 04/16/25 0939 126/79 97.5 ??F (36.4 ??C) Temporal 79 18 95 % 1.753 m (5' 9 ) 79.4 kg (175 lb) No intake or output data in the 24 hours ending 04/16/25 1232 Gen - NAD, well groomed, lying comfortably in bed. Heart - Regular rate and rhythm, S1S2, no murmurs Lungs - Clear to auscultation bilaterally, no wheezing Abd - Soft, tender to the epigastric region, non-distended, + bowel sounds, no guarding, no abdominal bruising or hematoma noted Exts - no clubbing/cyanosis/edema. No tenderness. Neuro - Awake, alert & oriented x3; able to move all 4 extremities Psych - Affect appropriate to situation, appropriate insight Skin - Good turgor, no signs of bruising DIAGNOSTIC STUDIES: Lab Studies: Lab Results Component Value Date GLUC 98 04/16/2025 CALCIUM 9.3 04/16/2025 NA 138 04/16/2025 K 4.4 04/16/2025 CO2 25 04/16/2025 CL 100 04/16/2025 BUN 11 04/16/2025 CREAT 1.0 04/16/2025 No results found for: CKTOTAL , CKMB , CKMBINDEX Results from last 7 days Lab Units 04/16/25 1004 MAGNESIUM mg/dL 2.0 Lab Results Component Value Date CALCIUM 9.3 04/16/2025 Results from last 7 days Lab Units 04/16/25 1004 WHITE BLOOD CELL COUNT Thou/uL 9.2 HEMOGLOBIN g/dL 10.4* HEMATOCRIT % 31.6* PLATELET COUNT Thou/uL 128* IMMATURE GRANULOCYTES % 0.4 IMMATURE GRANULOCYTES ABSOLUTE Thou/uL 0.04 NEUTROS PCT % 79.3 NEUTROS ABS Thou/uL 7.31 LYMPHS PCT % 12.8 LYMPHS ABS Thou/uL 1.18* MONOS PCT % 6.4 MONOS ABS Thou/uL 0.59 EOS PCT % 0.9 EOS ABS Thou/uL 0.08 BASOS PCT % 0.2 BASOS ABS Thou/uL 0.02 Lab Results Component Value Date ALT 12 04/16/2025 AST 30 04/16/2025 ALKPHOS 56 04/16/2025 BILITOT 1.9 (H) 04/16/2025 Lab Results Component Value Date LIPASE 16 04/16/2025 No results found for: PROBNP Results from last 7 days Lab Units 04/11/25 0511 COLOR UA Yellow CLARITY UA Clear SPECIFIC GRAVITY UA 1.021 PH UA 5.0 PROTEIN UA mg/dL Small (30 mg/dL)* GLUCOSE, URINE mg/dL Negative KETONES UA mg/dL Trace* BLOOD UA Negative NITRITE UA Negative LEUKOCYTE ESTERASE UA Negative BILIRUBIN UA Negative Reviewed and interpreted lab work as above. Hemoglobin 10.4, last week it was 11.7. Bilirubin 1.9 Reviewed prior records, ED note from April 11, 2025. Patient was seen for the abdominal pain, was given referral to hematology for thrombocytopenia Discussed case with ED physician Dr. Harkins. ECG per my interpretation: Sinus bradycardia nonspecific T wave abnormality in inferior lateral lead. Radiologic Studies: Reviewed by myself CT Abdomen+pelvis w/contrast Result Date: 04/16/2025 CT ABDOMEN+PELVIS W/CONTRAST: 04/16/2025 10:38 AM Indication: L sided abd pain x 1 week. L sided abdpain x 1 week Technique: Iterative reconstruction technique was employed to reduce patient radiation exposure Contrast: 100 ml of Omnipaque 350. CT scan of the abdomen: Helical imaging through the abdomen was performed at 0.6 mm collimation after intravenous contrast administration and multiplanar reformatted images were created. Visualized lungs clear. Liver normal. Splenomegaly. Spleen [id number] cm in longitudinal dimension. Areas of decreased attenuation along the medial aspect of the spleen and the inferior aspect of the spleen could represent splenic infarction. Alternatively but less likely splenic laceration cannot be excluded. The splenic artery and vein appears to be patent. Pancreas and adrenal glands are normal. Kidneys are enhancing normally. No mass or adenopathy. Bowel normal. CT scan of the pelvis: Helical imaging through the pelvis reveals no mass or adenopathy. Bowel normal. Small amount of ascites in the lower pelvis. Osseous structures intact. Splenomegaly and markedly abnormal spleen most consistent with splenic infarcts. Alternatively but less likely splenic laceration cannot be excluded. Correlate for trauma. In light of the patient having sickle cell trait favor splenic infarction. ASSESSMENT/PLAN: Principal Problem: Splenic infarct (POA: Yes) Resolved Problems: #: Splenic infarcts: - Presentation appears to be more consistent with splenic infarcts but radiology also raises concern for splenic laceration (less likely) and to correlate with trauma but patient denies any significant trauma. -Hematology consult requested especially in the setting of sickle cell trait -Monitor on telemetry and obtain echocardiogram to evaluate for possible embolic source -If these are splenic infarcts he may need anticoagulation after my discussion with hematology however given that there was some concern on CT scan for possible laceration as well I will consult trauma / surgery team first for further evaluation and hold off anticoagulation until this is clarified -IV fluids with half NS due to sickle cell trait #: Intractable abdominal pain: - In the setting of above, pain control. #: Thrombocytopenia: - Improved from recent lab work, likely in setting of significant splenomegaly, hematology consult as above. VTE and Expected Discharge Documentation: VTE Time Out IMPROVE SCORE: 1 (04/16/2025 12:29 PM) Interpretation - Low Risk Chemical Prophylaxis Low VTE risk Hold off until further clarification as above Mechanical Prophylaxis SCDs are ordered - Bilateral (Knee High) Patient declined SCD use, Please review Patient currently has an LOBO of 04/17/2025 Click to update the Expected Discharge Date I have reviewed the VTE risk assessment and ordered prophylaxis, and updated the Expected DischargeDate as indicated Code Status: Full Code Family update: Offered but declined New Medications: IV fluids and pain control discussed RISK STRATIFICATION: Observation COUNTY ASSESSOR: Extended Emergency Contact Information Primary Emergency Contact: Jyoti King Address: UNKNOWN Mobile Relation: Grandparent Erma Ballesteros MD 04/16/2025 12:32 PM [1] Social History Tobacco Use Smoking status: Never Smokeless tobacco: Never Substance Use Topics Alcohol use: Yes Comment: social Drug use: Yes Types: Marijuana Comment: Edible marijuana [2] No Known Allergies documented in this encounter Consult Notes * Jackie Funez PA-C - 04/16/2025 2:01 PM EDT TRAUMA SURGERY CONSULT Patient Name: Neil King Patient Age: 29 y.o. Patient Gender: male Patient : 1995 Requesting Physician: Current Providers Attending Provider: Erma Ballesteros MD Consulting Trauma Physician: Dr. Perez Reason for Consult: ? Splenic laceration Consult time: 1:57 pm Arrival Date:04/16/2025 9:40 AM Evaluation date & time: 04/16/2025 2:45 pm CHIEF COMPLAINT: It got worse today HISTORY OF THE PRESENT ILLNESS: Obtained from:, Patient, Medicine attending, and medical record This is a 29-year-old male with history including bipolar 1, hemorrhoids, sickle cell trait who came to the ED with 1-1.5 weeks of left-sided abdominal pain that has slowly worsened. States pain is worse when going from standing to seated or seated to standing. Denied any recent trauma, lifting or moving heavy objects, injuries. Trauma team was consulted due to CT revealing splenic infarcts (morelikely) but also unable to exclude splenic lacerations. Patient will not accept blood products due to gnosticist reasons ([employer]). He reports pain has been going on for over a week. He tried to manage pain at home with Tylenol but it worsened so on day 2 or 3, he presented to the ED on 04/11. At that ED visit, he underwent a CT of the abdomen and pelvis with contrast which was suspiciousfor probable volume overload, mild hepatosplenomegaly, nonspecific enterocolic edema may be secondary to systemic factors for enterocolitis, trace ascites . He was discharged home. Patient reports this morning the pain significantly worsened which prompted his re-presentation to the ED. He denies associated nausea, vomiting, difficulty eating, changes to bladder or bowel habits, hematochezia/melena, hematuria. 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 Denies recent travel other than to [place] his marijuana/edibles. He states this pain actually began on a trip back from [place] but was not prompted by anything particular. He denies any car accidents or trauma. Even denies any heart stops in the vehicle for which the seatbelt might of pushed on his abdomen. ROS: 10 point review of systems completed. All others negative except as above. PAST MEDICAL HISTORY: Past Medical History: Diagnosis Date Bipolar 1 disorder (HCC) Hemorrhoid SURGICAL HISTORY: Past Surgical History: Procedure Laterality Date COLONOSCOPY N/A 01/22/2024 Procedure: COLONOSCOPY; Surgeon: Kam Costello MD; Location: [facility]; Service: Gastroenterology; Laterality: N/A; ENDOSCOPY UPPER /C BIOPSY N/A 01/22/2024 Procedure: ENDOSCOPY UPPER /C BIOPSY; Surgeon: Kam Costello MD; Location: [facility];Service: Gastroenterology; Laterality: N/A; WISDOM TOOTH EXTRACTION FAMILY HISTORY: Family History Problem Relation Age of Onset Anemia Mother SOCIAL HISTORY: Denies tobacco, social EtOH, Marijuana but denies other illicit drugs Social History Socioeconomic History Marital status: Single Spouse name: Not on file Number of children: Not on file Years of education: Not on file Highest education level: Not on file Occupational History Not on file Tobacco Use Smoking status: Never Smokeless tobacco: Never Substance and Sexual Activity Alcohol use: Yes Comment: social Drug use: Yes Types: Marijuana Comment: Edible marijuana Sexual activity: Not on file Other Topics Concern Not on file Social History Narrative Not on file Social Drivers of Health Financial Resource Strain: Not on file Food Insecurity: Not on file Transportation Needs: Not on file Physical Activity: Not on file Stress: Not on file Social Connections: Not on file Housing Stability: Not on file MEDICATIONS: Current Medications[1] Tetanus: Not indicated ALLERGIES: Allergies[2] VITAL SIGNS: 60,Resp:12,BP:128/69,SpO2:95 %,Weight:79.4 kg (175 lb) PHYSICAL EXAM: Eyes Open: 4 = spontaneous Best Verbal Response: 5 = verbally appropriate for age Best Motor Response: 6 = obeys commands appropriate for age Coma Score: 15 Neuro: alert & oriented x3, CN II-XII grossly intact, no focal neuro deficit Head: normocephalic, atraumatic Face: No injury Eyes: Pupils: Right 3mm brisk Left 3mm brisk Extraocular Muscles: full and intact Ears: No injury Nose: No injury Mouth: Teeth: Intact Tongue: midline, atraumatic Neck: Tenderness: Non-tender Crepitus: No Trachea: midline Contusions/Abrasions: No Wounds: No Back: Tenderness: Non-tender Contusions/Abrasions: No Step offs: No Wounds: No Chest: Crepitus: No Contusions/Abrasions: No Wounds: No Tenderness: Non-tender Resp: Breath Sounds: clear to auscultation, no wheezes, rales, or rhonchi CV: Heart: RRR Pulses: Radial: present 2+ Pedal: present 2+ Femoral: present 2+ GI: Abdomen soft Contusion/Abrasions: No Wounds: No Distention: No Tenderness: Significantly tender to LUQ but nonperitoneal. Pelvis: stable and non-tender : not examined Rectal:not tested Extremities: Moves All Extremities: Yes RUE: no injury seen Motor: 5/5 - against full resistance Sensory: intact to light touch LUE: no injury seen Motor: 5/5 - against full resistance Sensory: intact to light touch RLE: no injury seen Motor: 5/5 - against full resistance Sensory: intact to light touch LLE: no injury seen Motor: 5/5 - against full resistance Sensory: intact to light touch Last documented RAP Score: DIAGNOSTIC DATA: CT Abdomen+pelvis w/contrast Final Result Splenomegaly and markedly abnormal spleen most consistent with splenic infarcts. Alternatively but less likely splenic laceration cannot be excluded. Correlate for trauma. In light of the patient having sickle cell trait favor splenic infarction. Echocardiogram (TTE) Comprehensive (Contrast PRN) (Results Pending) Results for orders placed or performed during the hospital encounter of 04/16/25 Complete Blood Count, with Differential Collection Time: 04/16/25 10:04 AM Specimen: Blood Result Value Ref Range White Blood Cell Count 9.2 4.0 - 11.0 Thou/uL Platelet Count 128 (L) 150 - 450 Thou/uL Hemoglobin 10.4 (L) 13.0 - 17.7 g/dL Hematocrit 31.6 (L) 39.0 - 54.0 % Red Blood Cell Count 3.52 (L) 4.50 - 6.20 Mil/uL MCV 90 80 - 100 fL MCH 29.5 26.0 - 34.0 pg MCHC 32.9 30.0 - 36.0 g/dL RDW 13.8 11.5 - 14.5 % MPV 11.5 7.5 - 12.5 fL Immature Platelet Fraction 5.4 1.2 - 8.6 % Neutrophils Auto 79.3 % Immature Granulocytes 0.4 % Lymphocytes Auto 12.8 % Monocytes Auto 6.4 % Eosinophils Auto 0.9 % Basophils Auto 0.2 % Abs Neutrophils Auto 7.31 2.00 - 7.50 Thou/uL Abs Immature Granulocytes 0.04 0.00 - 0.10 Thou/uL Abs Lymphocytes Auto 1.18 (L) 1.50 - 4.50 Thou/uL Abs Monocytes Auto 0.59 0.20 - 1.50 Thou/uL Abs Eosinophils Auto 0.08 0.00 - 0.70 Thou/uL Abs Basophils Auto 0.02 0.00 - 0.20 Thou/uL Comprehensive Metabolic Panel Collection Time: 04/16/25 10:04 AM Specimen: Blood Result Value Ref Range Glucose 98 65 - 99 mg/dL Blood Urea Nitrogen (BUN) 11 8 - 21 mg/dL Creatinine 1.0 0.5 - 1.3 mg/dL eGFR >90 >59 Sodium 138 136 - 145 mmol/L Potassium 4.4 3.4 - 5.3 mmol/L Chloride 100 98 - 107 mmol/L CO2 25 22 - 33 mmol/L Calcium 9.3 8.7 - 10.5 mg/dL Alkaline Phosphatase 56 45 - 128 U/L Aspartate Aminotrans (AST) 30 10 - 55 U/L Alanine Aminotrans (ALT) 12 10 - 55 U/L Bilirubin, Total 1.9 (H) 0.2 - 1.0 mg/dL Protein, Total 6.9 6.3 - 8.3 g/dL Albumin 4.2 3.5 - 5.0 g/dL BUN/Creatinine Ratio 11 10.0 - 25.0 Ratio Globulin 2.7 1.5 - 3.9 g/dL Albumin/Globulin Ratio 1.6 1.0 - 3.0 Ratio Anion Gap 13 7 - 17 Magnesium Collection Time: 04/16/25 10:04 AM Specimen: Blood Result Value Ref Range Magnesium 2.0 1.6 - 2.7 mg/dL Lipase Collection Time: 04/16/25 10:04 AM Specimen: Blood Result Value Ref Range Lipase 16 13 - 60 U/L ECG 12 lead Collection Time: 04/16/25 12:04 PM Result Value Ref Range Ventricular rate 59 BPM Atrial rate 59 BPM P-R interval 132 ms QRS duration 84 ms Q-T interval 422 ms QTC calculation (Bazett) 417 ms P axis 68 degrees R axis 53 degrees T axis 49 degrees Hemoglobin and Hematocrit Collection Time: 04/16/25 5:51 PM Specimen: Blood Result Value Ref Range Hematocrit 31.0 (L) 39.0 - 54.0 % Hemoglobin 10.2 (L) 13.0 - 17.7 g/dL I have reviewed the patient's labs, medications and imaging. ASSESSMENT: This is a 29 y.o.male s/p no known trauma or injury who presented with worsening abdominal pain found to have question of splenic infarct versus lacerations on CT imaging. Medicine requested trauma evaluation given concern for lacerations. CT from recent ED visit reviewed and upon our review, thereis an area suspicious for a splenic infarct although today's CT definitely appears much worse with c oncern for superimposed blood products. Primary survey: Airway intact/patent, equal bilateral breath sounds, pelvis stable, 2+ pulses throughout, GCS 15, no gross neurodeficits, no significant external bleeding, adequate stable vital signs. Secondary survey: As above, only finding is tenderness to the left upper quadrant without skin findings. Imaging studies: Independently reviewed by me and radiology reports reviewed. CT abdomen and pelvis: Splenomegaly marked abnormal spleen most consistent with splenic infarcts. Alternatively but less likely splenic laceration cannot be excluded. Labs: CBC remarkable for H&H of 10.4/31.6 which is stable on repeat. Platelet count 128. Chemistries remarkable only for T. bili of 1.9. PLAN: Patient is already admitted to the medicine service. Would recommend CTA of the abdomen and pelvis to rule out ongoing bleeding. Trend CBC. Maintain on telemetry and monitor blood pressures. If signs of hemodynamic instability or downtrending H/H, recommend IR consult for possible embolization. Patient is Shinto and refuses blood products. This was confirmed with the patient. Pain control per primary team. Anticoagulation: Hold chemical prophylaxis until H/H stability proven and CTA resulted. Please reach out to trauma/ACS team prior to initiating anticoagulation. C-Spine cleared clinically No need for trauma tertiary exam there is no specific injury. Trauma/ACS team will follow along. No surgical intervention planned at this time. Discussed with trauma attending Dr. Schroeder and communicated with medicine attending Dr. Ballesteros. CONSULTANTS: None by trauma at this time. Consider IR consult if signs of hemodynamic instability or ongoing bleeding. DISPOSITION: Admitted to medicine. Jackie Funez PA-C 04/16/2025 2:01 PM This note was created using a voice dictation system. Inadvertent word changes may have occurred. Please feel free to contact me with any questions or for clarification. [1] No current facility-administered medications for this encounter. Current Outpatient Medications: ARIPiprazole (ABILIFY) 10 MG tablet, Take 1 tablet (10 mg total) by mouth daily., Disp: , Rfl: [2] No Known Allergies Cosigned by Sole Perez MD at 04/16/2025 9:18 PM EDT Associated attestation - Sole Perez MD - 04/16/2025 9:18 PM EDT I have personally examined the patient, reviewed the data and the PA's note. I agree with the history, exam, assessment and plan as detailed in the note with the following modifications/additions: 29M with sickle cell trait (states that he has never had a sickle cell crisis), GERD, prior GI bleed, anxiety, bipolar 1, PTSD, anemia, who presented to the ED with abdominal pain for last 10 days. Patient was seen in the ED on 04/[address] done at that time read as having hepatosplenomegaly, but otherwise fairly unremarkable so patient was discharged home. Returned today with worsening pain. No fever or chills. No dizziness or lightheadedness. Tolerating diet without nausea or emesis. Having normal bowel function and voiding without difficulty. Denies abdominal trauma. He is afebile, hemodynamically normal. Abdomen soft, tender in left upper quadrant. No signs of trauma.Hgb 10.4 from 11.7 on the . Thrombocytopenia improved to 128 from 76 on the . On review of the CT scan, there are areas in the spleen which appear like infarcts, as well as areas that appear consistent with hematoma. No obvious active extravasation. Reviewed CT from 04/[address] scanthe areas consistent with infarct can be seen. Suspect that patient had a splenic infarct sometime around the which lead to his initial pain. Concerned that there was either a laceration or morelikely a pseudoaneurysm which has since bled. Unclear if there is ongoing bleeding or if it has stopped. Recommend a Cta a/p to better evaluate for ongoing bleeding and pseudoaneurysm, trend Hgb. If o ngoing bleeding, will need IR embolization. Would hold chemical DVT ppx for now. Of note, patient states that he is a [employer] and declines blood transfusion. Surgery will follow. Sign: Sole Perez MD 04/16/2025 8:05 PM documented in this encounter ED Notes * Jaylyn Barroso RN - 04/16/2025 1:37 PM EDT Co worker stated to send pt to floor , transport to come get pt Jaylyn Barroso RN 04/16/25 1337 * Jaylyn Barroso RN - 04/16/2025 1:15 PM EDT Spoke with ECHO staff and aware pt to go to E2 post test Jayyln Barroso RN 04/16/25 1316 * Jaylyn Barroso RN - 04/16/2025 12:52 PM EDT Called floor to make aware of pt Jaylyn Barroso RN 04/16/25 1252 * Mal Birch RN - 04/16/2025 12:17 PM EDT S Situation Neil King is a 29 y.o. male with a chief complaint of Abdominal Pain Neil King is being admitted to floor with an admitting diagnosis of: 1. Splenic infarct 2. Abdominal pain . B Background Past Medical History: Neil King has a past medical history of Bipolar 1 disorder (HCC) and Hemorrhoid. Past Surgical History: Neil King has a past surgical history that includes [place] tooth extraction; COLONOSCOPY (N/A, 01/22/2024); and ENDOSCOPY UPPER /C BIOPSY (N/A, 01/22/2024). Allergies: Neil King has no known allergies. A Assessment Vital Signs: Neil King's height is 1.753 m (5' 9 ) and weight is 79.4 kg (175 lb). His oral temperature is 98.2 ??F (36.8 ??C). His blood pressure is 121/73 and his pulse is 61. His respirationis 14 and oxygen saturation is 95%. Activity: activity as tolerated Diet: As Ordered IV: 20G Right Forearm O2: RA EKG: Recent Results (from the past 8760 hours) ECG 12 lead Collection Time: 04/16/25 12:04 PM Result Value Status Ventricular rate 59 Preliminary Atrial rate 59 Preliminary P-R interval 132 Preliminary QRS duration 84 Preliminary Q-T interval 422 Preliminary QTC calculation (Bazett) 417 Preliminary P axis 68 Preliminary R axis 53 Preliminary T axis 49 Preliminary Narrative Sinus bradycardia Nonspecific T wave abnormality Abnormal ECG When compared with ECG of 15-Jan-2022 17:07, Nonspecific T wave abnormality now evident in Inferior leads Nonspecific T wave abnormality now evident in Lateral leads Stroke:No NIH: Swallow Screen: N/A General Assessment/ED Interventions: Pt presented with c/o severe left-sided abdominal pain. Pt states he came to this ED on the for the same persistent pain, then went to his primary today, who recommended he come back for eval. Pt rates his pain 10/10 upper left side with activity, somewhat relieved by tylenol and ibuprofen. Denies CP and SOB, denies N/V/D, no constipation, no urinary symptoms. Abdomen soft and non- tender, left upper quadrant extremely tender. Pt reports this pain started roughly a week ago after eating an edible marijuana gummy. Vital signs stable, A+O x4, skin warm, dry, and intact. No other complaints or needs at this time. Medications iohexol (OMNIPAQUE) 350 mg/mL injection 100 mL (100 mL Intravenous Given 04/16/25 1048) ketorolac (TORADOL) injection 15 mg (15 mg Intravenous Given 04/16/25 1135) morphine preservative free 4 mg/mL injection 4 mg (4 mg Intravenous Given 04/16/25 1135) sodium chloride 0.9 % (NS) bolus (1,000 mL Intravenous New Bag 04/16/25 1136) Abnormal Labs Reviewed COMPLETE BLOOD COUNT, WITH DIFFERENTIAL - Abnormal; Notable for the following components: Result Value Platelet Count 128 (*) Hemoglobin 10.4 (*) Hematocrit 31.6 (*) Red Blood Cell Count 3.52 (*) Abs Lymphocytes Auto 1.18 (*) All other components within normal limits COMPREHENSIVE METABOLIC PANEL - Abnormal; Notable for the following components: Bilirubin, Total 1.9 (*) All other components within normal limits R Recommendation Isolation: none Precautions: none Special Needs: N/A Nurse: Mal Birch RN Date: 04/16/2025 Time: 12:17 PM Phone: [phone] Mal Birch RN 04/16/25 5644 * Mal Birch RN - 04/16/2025 11:53 AM EDT Pt resting comfortably in bed in no apparent distress. Bedside urinal provided, 500mL of dark yellow/straw color urine drained. Morphine and toradol pushed for pain per MAR, normal saline bolus running through right peripheral IV. Pt on continuous pulse ox. No current needs or complaints at this time. Mal Birch RN 04/16/25 0705 * Jaylyn Barroso RN - 04/16/2025 11:01 AM EDT Pt resting with eyes closed Jaylyn Barroso RN 04/16/25 1101 * Mal Birch RN - 04/16/2025 10:29 AM EDT Pt taken to CT Mal Birch RN 04/16/25 1030 * Mal Birch RN - 04/16/2025 10:08 AM EDT Pt presented with c/o severe left-sided abdominal pain. Pt states he came to this ED on the for the same persistent pain, then went to his primary today, who recommended he come back for eval. Pt rates his pain 10/10 upper left side with activity, somewhat relieved by tylenol and ibuprofen. Denies CP and SOB, denies N/V/D, no constipation, no urinary symptoms. Abdomen soft and non- tender, left upper quadrant extremely tender. Pt reports this pain started roughly a week ago after eating an edible marijuana gummy. Vital signs stable, A+O x4, skin warm, dry, and intact. No other complaints or needs at this time. Mal Birch RN 04/16/25 1013 * Patrick Harkins MD - 04/16/2025 9:51 AM EDT Subjective History of Present Illness: 29 y.o. male with history of bipolar d/o, sickle cell trait comes to the ER with approximately 8 days of L sided abdominal pain. Patient reports the pain began around 04/09 it has gotten somewhat worse over the last week. Hurts most when he is going from standing to seated or seated to standing. He does not recall any recent trauma, lifting/moving any heavy objects. Denies fevers, chills, nausea, vomiting, diarrhea, weight loss or change in appetite. Patient was seat at urgent care earlier today and referred to the ER for further workup. He was noted to be quite uncomfortable and diaphoretic there. I have reviewed the patients medications, allergies, past medical history, social history and family history as documented. Past Medical History: Diagnosis Date Bipolar 1 disorder (HCC) Hemorrhoid Patient's Medications New Prescriptions No medications on file Previous Medications FERROUS SULFATE 325 (65 FE) MG TABLET Take 1 tablet (325 mg total) by mouth daily. Take 2 hours before or 4 hours after acid reducers. IBUPROFEN (MOTRIN) 400 MG TABLET Take 1 tablet (400 mg total) by mouth 3 times daily (every 8 hours) as needed for mild pain. LIDOCAINE (XYLOCAINE) 5 % OINTMENT Apply topically 4 (four) times a day as needed for mild pain. LIDOCAINE (XYLOCAINE) 5 % OINTMENT Apply topically 4 (four) times a day as needed for mild pain. NITROGLYCERIN (RECTIV) 0.4 % RECTAL OINTMENT 0.3 inches by Intra-anal route 2 (two) times a day. POLYETHYLENE GLYCOL (MIRALAX) 17 G PACKET Take 1 packet (17 g total) by mouth daily. Modified Medications No medications on file Discontinued Medications No medications on file Past Surgical History: Procedure Laterality Date COLONOSCOPY N/A 01/22/2024 Procedure: COLONOSCOPY; Surgeon: Kam Costello MD; Location: [facility]; Service: Gastroenterology; Laterality: N/A; ENDOSCOPY UPPER /C BIOPSY N/A 01/22/2024 Procedure: ENDOSCOPY UPPER /C BIOPSY; Surgeon: Kam Costello MD; Location: [facility];Service: Gastroenterology; Laterality: N/A; WISDOM TOOTH EXTRACTION Social History Socioeconomic History Marital status: Single Spouse name: Not on file Number of children: Not on file Years of education: Not on file Highest education level: Not on file Occupational History Not on file Tobacco Use Smoking status: Never Smokeless tobacco: Never Substance and Sexual Activity Alcohol use: Yes Comment: social Drug use: Yes Types: Marijuana Comment: Edible marijuana Sexual activity: Not on file Other Topics Concern Not on file Social History Narrative Not on file Social Drivers of Health Financial Resource Strain: Not on file Food Insecurity: Not on file Transportation Needs: Not on file Physical Activity: Not on file Stress: Not on file Social Connections: Not on file Housing Stability: Not on file Family History Problem Relation Age of Onset Anemia Mother Review of Systems: General: no fevers, no chills Eyes: no vision changes, no eye pain HEENT: no congestion, no rhinorrhea, no sore throat CV: no chest pain, no palpitations, no lower extremity edema Respiratory: no cough, no shortness of breath, no wheezing : no dysuria, no urgency, no frequency MSK: no joint pain Skin: no rashes Neurologic: no headache, no weakness, no paresthesias, no dizziness Psychiatric: no anxiety Objective Physical Exam: Vitals: 04/16/25 0939 BP: 126/79 Pulse: 79 Resp: 18 Temp: 97.5 ??F (36.4 ??C) SpO2: 95% Weight: 79.4 kg (175 lb) Height: 1.753 m (5' 9 ) Vital signs reviewed. Constitutional: Somewhat uncomfortable, non-toxic Eyes: Conjunctivae Clear, No Icterus Ear, Nose, Mouth, Throat: Grossly normal inspection. Normal voice, handling secretions normally Neck: Supple, no nuchal signs, Trachea is midline, no JVD. No laryngeal tenderness, no meningismus Cardiovascular: Normal S1, S2. No extra heart sounds. Respiratory: Breath sounds clear and equal bilaterally, no wheezes, rales, or rhonchi. Gastrointestinal: Soft, with LUQ ttp. Back: Grossly normal Musculoskeletal: No apparent deformities, full ROM Skin: Normal for age and race, grossly normal temperature and turgor. No acute rash. Neurologic: Alert and appropriate Assessment & Plan Medical Decision Making: This is a 29 y.o. male who presents with persistent L sided abdominal discomfort, without any recent trauma Patient was seen here on 04/11/25. Workup at that time was unremarkable. CT showed nonspecific, mildhepatosplenomegaly and evidence of enterocolitis. Do not suspect emergent pathology like mesenteric ischemia, AAA, dissection, perforation, SBO however he is quite tender in the left upper quadrant and CT from last week was essentially non-diagnostic. Will repeat scan. 1:[address] showing splenic infarcts. Possibly related to his history of sickle cell trait. He denies any recent trauma. Discussed need for admission with hospitalist Dr Favian Harkins MD 04/16/25 [id number] documented in this encounter Miscellaneous Notes * Hospital Course - Chikis Costa MD - 04/18/2025 11:54 AM EDT Images from the original note were not included. Splenic infarct Sickle cell trait Has history of sickle cell trait but no significant problems in the past Presented with left upper quadrant abdominal pain for about 1 week Imaging revealed question of splenic infarct versus laceration Echo showed normal biventricular systolic function, no LV thrombus Telemetry has shown NSR - Appreciate trauma surgery recommendations. No acute intervention, low suspicion for splenic laceration. - Appreciate hematology recommendations. Case was discussed with Dr. Caicedo. Patient was started onheparin infusion , he remained stable. Will transition him to [facility] Patient medically stable for discharge. Outpatient follow-up with bundle tier and labeler for further workup including thrombophilia workup Abdominal pain Presumably secondary to splenic infarct -Was managed with IV Dilaudid. The pain is better today, continue Tylenol as needed Anemia Chronic in the setting of sickle cell trait with some prior evidence of iron deficiency. Hemoglobin electrophoresis ordered , follow-up results with the bundle tier and labeler suspect patient - Patient Shinto, will not accept blood transfusion Elevated bilirubin No RUQ pain - Monitor as outpatient Thrombocytopenia In the setting of splenomegaly -Resolved * Plan of Care - Nydia Wilks RN - 04/18/2025 11:43 AM EDT Pt A+Ox4. NSR on tele. Maintaining oxygen saturations on RA. No signs of respiratory distress. No complaints of pain. Heparin gtt stopped per provider orders. Pt dc to home without services. All questions and concerns addressed. No further questions at this time. Pt safety maintained. Nydia Wilks 04/18/2025 11:43 AM * Plan of Care - Telma Bhatti RN - 04/18/2025 7:51 AM EDT Pt is A&Ox4. Active tele/pulse ox orders. Maintained sats on room air.VSS. NSR on tele. IV heparin infusion per protocol. Comfort and safety maintained Telma Bhatti 04/18/2025 7:51 AM * Plan of Care - Radha Leach RN - 04/17/2025 2:58 PM EDT Problem: Adult Inpatient Plan of Care Goal: Plan of Care Review Outcome: Progressing Patient A&Ox4, calm cooperative and pleasant, VSS sinus rhythm on tele, sating above 90% on RA.Patient using the urinal voiding without difficulty. LBM 04/16/25. TTE complete; please refer to results. Heparin drip initiated and maintained per MAR parameters, until transfer to N4. Patient to transition to inpatient unit. Report called to receiving RN on N4. Patient left unit w/ all belongings. Radha Leach 04/17/2025 2:58 PM * Plan of Care - Say Dale RN - 04/17/2025 2:17 PM EDT Assumed care of patient approx 1300 from E2. Tele SR. A&Ox4. LS clear. Continues on room air w/SpO2 >92%. Reports LUQ abdominal pain - PRN dilaudid administered w/good effect. Continues on IV heparin at 15units/kg/hr. PTT therapeutic x 1, continues at same rate. SBA OOB. Call faustin within reach. Safety precautions maintained. POC ongoing. Say Dale 04/17/2025 6:50 PM * Assessment & Plan Note - Juliet Moralez MD - 04/17/2025 1:19 PM EDTAssociated Problem(s): Splenic infarct Has history of sickle cell trait but no significant problems in the past Presented with left upper quadrant abdominal pain for about 1 week Imaging revealed question of splenic infarct versus laceration Echo showed normal biventricular systolic function, no LV thrombus Telemetry has shown NSR - Appreciate trauma surgery recommendations. No acute intervention, low suspicion for splenic laceration. - Appreciate hematology recommendations. Case discussed with Dr. Caicedo. Will start heparin infusion and monitor for any bleeding given the above question of possible laceration. If he remains stableon heparin for the next 24 hours we will transition to DOAC tomorrow. - Continue fluids and supportive care * Assessment & Plan Note - Juliet Moralez MD - 04/17/2025 1:19 PM EDTAssociated Problem(s): Sickle cell trait Has history of sickle cell trait but no significant problems in the past Presented with left upper quadrant abdominal pain for about 1 week Imaging revealed question of splenic infarct versus laceration Echo showed normal biventricular systolic function, no LV thrombus Telemetry has shown NSR - Appreciate trauma surgery recommendations. No acute intervention, low suspicion for splenic laceration. - Appreciate hematology recommendations. Case discussed with Dr. Caicedo. Will start heparin infusion and monitor for any bleeding given the above question of possible laceration. If he remains stableon heparin for the next 24 hours we will transition to DOAC tomorrow. - Continue fluids and supportive care * Assessment & Plan Note - Juliet Moralez MD - 04/17/2025 1:19 PM EDTAssociated Problem(s): Anemia Chronic in the setting of sickle cell trait with some prior evidence of iron deficiency. - Follow-up iron panel. Will replete with IV iron if low. - Hemoglobin electrophoresis ordered - Patient does not except blood transfusions, Shinto * Assessment & Plan Note - Juliet Moralez MD - 04/17/2025 1:19 PM EDTAssociated Problem(s): Elevated bilirubin No RUQ pain - Trend LFTs * Assessment & Plan Note - Juliet Moralez MD - 04/17/2025 1:19 PM EDTAssociated Problem(s): Abdominal pain Presumably secondary to splenic infarct - Continue IV Dilaudid through today then will trial transition to oral pain medications * Plan of Care - Demetrice Solitario - 04/17/2025 10:56 AM EDT Problem: Adult Inpatient Plan of Care Goal: Readiness for Transition of Care Outcome: Adequate for Care Transition Case Management Care Plan Note Final Discharge Plan: 01 - home or self-care Summary: Chart reviewed. Patient is a 29 year old male who presented to the hospital from his PCP office with chief complaint of left upper quadrant pain and was admitted for splenic infarct. Patient has medical hx of sickle cell trait, GERD, anemia, and Bipolar 1 disorder. Current insurance is [employer]. Met with patient at bedside to discuss transition of care planning. Patient resides at home alone. At baseline patient reports that he is independent with ambulation and ADLs, (+) driving and works 2 jobs. Patient confirms he does not use any assistive device. Patient's emergency contact is his grandmother, Jyoti King, phone number [phone]. Plan is for patient to discharge to home pending medical readiness with no services. ECHO pending and patient currently on heparin gtt. Patient verbalized understanding and in agreement with plan andhas no ANALY concerns. Patient states that his car is on campus and he plans on driving himself home upon discharge. No interventions planned at this time, transition of care plan complete. Plan: Discharge to home with no services pending medical readiness (04/17/2025 10:55 AM) Patient/Family in Agreement with Plan: yes (04/17/2025 10:55 AM) Final Discharge Disposition Code: 01 - home or self-care (04/17/2025 10:55 AM) Discharge Transportation: Family/Friend (Patient prefers to drive self home upon discharge) (04/17/2025 10:54 AM) Demetrice Solitario 04/17/2025 10:56 AM * Assessment & Plan Note - Juliet Moralez MD - 04/17/2025 9:27 AM EDTAssociated Problem(s): Thrombocytopenia In the setting of splenomegaly * Plan of Care - Emelina Phelps RN - 04/17/2025 4:44 AM EDT Aox4, NSR, RA, tylenol and dilaudid for abdominal pain with good effect. IVFs. CTA abd/pelvis done,see results in chart.Safety and comfort maintained throughout shift Problem: Adult Inpatient Plan of Care Goal: Plan of Care Review Outcome: Progressing Goal: Patient-Specific Goal (Individualized) Outcome: Progressing Goal: Absence of Hospital-Acquired Illness or Injury Outcome: Progressing Goal: Optimal Comfort and Wellbeing Outcome: Progressing Goal: Readiness for Transition of Care Outcome: Progressing Problem: Adult Inpatient Plan of Care Goal: Plan of Care Review Outcome: Progressing Goal: Patient-Specific Goal (Individualized) Outcome: Progressing Goal: Absence of Hospital-Acquired Illness or Injury Outcome: Progressing Goal: Optimal Comfort and Wellbeing Outcome: Progressing Goal: Readiness for Transition of Care Outcome: Progressing Problem: Fall Injury Risk Goal: Absence of Fall and Fall-Related Injury Outcome: Progressing Problem: Pain Acute Goal: Optimal Pain Control and Function Outcome: Progressing Emelina Phelps 04/17/2025 4:44 AM * Plan of Care - Elisabeth Connor RN - 04/16/2025 7:41 PM EDT Problem: Adult Inpatient Plan of Care Goal: Plan of Care Review Outcome: Progressing Pt is alert and oriented x4. Pt is pleasant and cooperative with care. Pt is on room air and maintains sats above 93%. Pt reports pain on inspiration r/t LUQ pain. Abd is tender to touch through out.Pt has + bowel sounds x4. Pt reports constant pain to LUQ pain on movement. Pt medicated per [facility] IV fluids ordered and started. Safety maintained. Call light within reach Elisabeth Connor 04/16/2025 * [facility] Shared Information - Madeline Barry - 04/16/2025 9:19 AM EDT ED PRE ARRIVAL Referring Provider: Jahaira Bass APRN Does referring provider want a call back? [] Yes [x] No Referred from location: Primary Care Call Back Number: Chief Complaint: Pt with severe abd pain, seen id [id number] for same, CT then showed spleen and liver enlargement, colon inflammation, pt now experiencing SOB, chronic anemia, PLT <100. Pt diaphoretic, drove self. No diarrhea, no fever, please eval. Arriving to ED via [] EMS [x] Private Vehicle documented in this encounter Plan of Treatment Upcoming Encounters Date Type Department Care Team (Late st Contact Info) Description 05/11/2025 3:00 PM EDT Consult [facility] Department Of Hematology/Oncology [place] [address] [phone] Gary Jeffery MD [address] [facility] [address] [place], [place] [id number] Pending Results Name Type Priority Associated Diagnoses Date /Time Hemoglobin S Post Transfusion Assessment Lab Routine 4:10 PM EDT Scheduled Orders Name Type Priority Associated Diagnoses Orde r Schedule Hemoglobin S Post Transfusion Assessment Lab Routine Once for 1 Occurrences starting 04/17/2025 until 04/17/2025 documented as of this encounter Procedures Procedure Name Priority Date/Time Associated Diagnosis Comments HEPARIN ASSAY (ANTI-XA) Routine 04/18/20 5:53 AM EDT COMPLETE BLOOD COUNT, WITHOUT DIFFERENTIAL Routine 04/18/2025 5:53 AM EDT BASIC METABOLIC PANEL Routine 04/18/2025 5:53 AM EDT HEPARIN ASSAY (ANTI-XA) Routine 04/17/20 8:45 PM EDT SICKLE CELL SCREEN REFLEX TO HGB ELECTROPHORESIS Routine 04/17/2025 4:10 PM EDT HEPARIN ASSAY (ANTI-XA) Routine 04/17/20 4:10 PM EDT HEPATIC FUNCTION PANEL Routine 4:10 PM EDT ECHOCARDIOGRAM (TTE) COMPREHENSIVE (CONTRAST PRN) Routine 04/17/2025 9:13 AM EDT PARTIAL THROMBOPLASTIN TIME (PTT) STAT 04/17/2025 8:11 AM EDT PROTIME-INR STAT 04/17/2025 8:11 AM EDT COMPLETE BLOOD COUNT, WITHOUT DIFFERENTIAL STAT 04/17/2025 8:11 AM EDT IRON AND TOTAL IRON BINDING CAPACITY Routine 04/17/2025 5:46 AM EDT COMPLETE BLOOD COUNT, WITHOUT DIFFERENTIAL Routine 04/17/2025 5:46 AM EDT FERRITIN Routine 04/17/2025 5:46 AM EDT BASIC METABOLIC PANEL Routine 04/17/2025 5:46 AM EDT HEMOGLOBIN AND HEMATOCRIT Routine 04/17/2025 12:50 AM EDT CTA ABDOMEN+PELVIS W W/O CONTRAST STAT 04/16/2025 9:37 PM EDT HEMOGLOBIN AND HEMATOCRIT Routine 04/16/2025 5:51 PM EDT ECG 12-LEAD Routine 04/16/2025 12:[address] ABDOMEN+PELVIS W/CONTRAST STAT 04/16/2025 10:47 AM EDT COMPLETE BLOOD COUNT, WITH DIFFERENTIAL STAT 04/16/2025 10:04 AM EDT MAGNESIUM STAT 04/16/2025 10:04 AM EDT LIPASE STAT 04/16/2025 10:04 AM EDT COMPREHENSIVE METABOLIC PANEL STAT 04/16/2025 10:04 AM EDT documented in this encounter Results * Heparin Assay (Anti Xa) (04/18/2025 5:53 AM EDT) Anti Xa 0.30 IU/mL 04/18/2025 6:26 AM EDT [facility] Comment: (NOTE) Heparin Thromboembolic/Standard/Full Dose Protocol: Therapeutic Range: Age 18+: 0.30 - 0.70 IU/mL Age 0 - 17: 0.35 - 0.70 IU/mL Heparin Cardiac/Low Dose Protocol: Therapeutic Range: 0.30 - 0.50 IU/mL Low Molecular Weight Heparin: Therapeutic Range: Age 18+: 0.50 - 1.09 IU/mL for twice daily dosing (or adjusted to daily for poor renal function) Age 18+: 1.00 - 2.00 IU/mL for once daily dosing Age 0-17: 0.50 - 1.00 IU/mL Anticoagulant IV HEPARIN, UNFRACTIONATED 04/18/2025 12:45 AM EDT [facility] Blood Blood specimen / Unknown 04/18/2025 5:53 AM EDT 04/18/2025 6:04 AM EDT us Juliet Moralez MD LAB BLOOD ORDERABLES Final Resu lt Performing Organization Address City/[facility]/ZIP Co de Phone Number [facility] [address] [facility] [place] [address], [facility] [address] [place] [address] * Basic Metabolic Panel (04/18/2025 5:53 AM EDT) Glucose 91 65 - 99 mg/dL 04/18/2025 6:50 AM EDT [facility] Comment:Fasting: <100 mg/dL, Non-Fasting: <200 mg/dL (ADA 2005) Blood Urea Nitrogen (BUN) 10 8 - 21 mg/dL 04/18/2025 6:50 AM EDT [facility] Creatinine 1.0 0.5 - 1.3 mg/dL 04/18/2025 6:50 AM EDT [facility] eGFR >90 >59 04/18/2025 6:50 AM EDT [facility] Comment:CKD-EPI (2020) in mL /min/1.73 sq meters. Sodium 137 136 - 145 mmol/L 04/18/2025 6:50 AM EDT [facility] Potassium 4.3 3.4 - 5.3 mmol/L 04/18/2025 6:50 AM EDT [facility] Chloride 98 98 - 107 mmol/L 04/18/2025 6:50 AM EDT [facility] CO2 25 22 - 33 mmol/L 04/18/2025 6:50 AM EDT [facility] Anion Gap 14 7 - 17 04/18/2025 6:50 AM EDT [facility] Calcium 9.3 8.7 - 10.5 mg/dL 04/18/2025 6:50 AM EDT [facility] BUN/Creatinine Ratio 10 10.0 - 25.0 Ratio 04/18/2025 6:50 AM EDT [facility] Blood Blood specimen / Unknown 04/18/2025 5:53 AM EDT 04/18/2025 6:04 AM EDT Juliet Moralez MD LAB BLOOD ORDERABLES Final Resu lt [address] [address], [address] [address] * (ABNORMAL) Complete Blood Count WITHOUT Differential - Early AM (04/18/2025 5:53 AM EDT) White Blood Cell Count 7.5 4.0 - 11.0 Thou/uL 04/18/2025 6:11 AM EDT [facility] Platelet Count 164 150 - 450 Thou/uL 04/18/2025 6:11 AM EDT [facility] Hemoglobin 11.3(L) 13.0 - 17.7 g/dL 04/18/2025 6:11 AM EDT [facility] Hematocrit 34.3(L) 39.0 - 54.0 % 04/18/2025 6:11 AM EDT [facility] Red Blood Cell Count 3.86(L) 4.50 - 6.20 Mil/uL 04/18/2025 6:11 AM EDT [facility] MCV 89 80 - 100 fL 04/18/2025 6:11 AM EDT [facility] MCH 29.3 26.0 - 34.0 pg 04/18/2025 6:11 AM EDT [facility] MCHC 32.9 30.0 - 36.0 g/dL 04/18/2025 6:11 AM T [facility] RDW 13.6 11.5 - 14.5 % 04/18/2025 6:11 AM EDT [facility] MPV 10.8 7.5 - 12.5 fL 04/18/2025 6:11 AM T [facility] Blood Blood specimen / Unknown 04/18/2025 5:53 AM EDT 04/18/2025 6:04 AM EDT us Juliet Moralez MD LAB BLOOD ORDERABLES Final Resu lt [address] [address], [address] [address] * Heparin Assay (Anti Xa) (04/17/2025 8:45 PM EDT) Anti Xa 0.31 IU/mL 04/17/2025 9:06 PM EDT [facility] Comment: (NOTE) Heparin Thromboembolic/Standard/Full Dose Protocol: Therapeutic Range: Age 18+: 0.30 - 0.70 IU/mL Age 0 - 17: 0.35 - 0.70 IU/mL Heparin Cardiac/Low Dose Protocol: Therapeutic Range: 0.30 - 0.50 IU/mL Low Molecular Weight Heparin: Therapeutic Range: Age 18+: 0.50 - 1.09 IU/mL for twice daily dosing (or adjusted to daily for poor renal function) Age 18+: 1.00 - 2.00 IU/mL for once daily dosing Age 0-17: 0.50 - 1.00 IU/mL Anticoagulant IV HEPARIN, UNFRACTIONATED 04/17/2025 5:00 PM EDT [facility] Blood Blood specimen / Unknown 04/17/2025 8:45 PM EDT 04/17/2025 8:53 PM EDT Juliet Moralez MD LAB BLOOD ORDERABLES Final Resu lt [address] [address], [address] [address] * Sickle Cell Screen Reflex to Hgb Electrophoresis (04/17/2025 4:10 PM EDT) Pathologist [facility] [place] Sickle Cell Screen Sent to reference laboratory for hemoglobin electrophoresi s. Negative 04/18/2025 7:06 AM EDT [facility] Blood specimen / Unknown 04/17/2025 4:10 PM EDT 04/17/2025 4:15 PM EDT Erma Ballesteros MD LAB BLOOD ORDERABLES Final Resul t [address] [address], [address] [address] * (ABNORMAL) HEPATIC FUNCTION PANEL (04/17/2025 4:10 PM EDT) Pathologist [facility] [place] Alkaline Phosphatase 56 45 - 128 U/L 04/17/2025 4:39 PM EDT [facility] Aspartate Aminotrans (AST) 29 10 - 55 U/L 04/17/2025 4:39 PM EDT [facility] Alanine Aminotrans (ALT) 12 10 - 55 U/L 04/17/2025 4:39 PM EDT [facility] Bilirubin, Total 1.6(H) 0.2 - 1.0 mg/dL 04/17/2025 4:39 PM EDT [facility] Protein, Total 6.8 6.3 - 8.3 g/dL 04/17/2025 4:39 PM EDT [facility] Albumin 3.8 3.5 - 5.0 g/dL 04/17/2025 4:39 PM EDT [facility] Bilirubin, Direct 0.4(H) 0.0 - 0.2 mg/dL 04/17/2025 4:39 PM EDT [facility] Globulin 3.0 1.5 - 3.9 g/dL 04/17/2025 4:39 PM EDT [facility] Albumin/Globulin Ratio 1.3 1.0 - 3.0 Ratio 04/17/2025 4:39 PM EDT [facility] 04/17/2025 4:10 PM EDT 04/17/2025 4:15 PM EDT Erma Ballesteros MD LAB [place]OD [place] [address], [place] [address] * Heparin Assay (Anti Xa) (04/17/2025 4:10 PM EDT) [facility] Anti Xa 0.42 IU/mL 04/17/2025 4:27 PM EDT [facility] Comment: (NOTE) Heparin Thromboembolic/Standard/Full Dose Protocol: Therapeutic Range: Age 18+: 0.30 - 0.70 IU/mL Age 0 - 17: 0.35 - 0.70 IU/mL Heparin Cardiac/Low Dose Protocol: Therapeutic Range: 0.30 - 0.50 IU/mL Low Molecular Weight Heparin: Therapeutic Range: Age 18+: 0.50 - 1.09 IU/mL for twice daily dosing (or adjusted to daily for poor renal function) Age 18+: 1.00 - 2.00 IU/mL for once daily dosing Age 0-17: 0.50 - 1.00 IU/mL Anticoagulant IV HEPARIN, UNFRACTIONATED 04/17/2025 10:12 AM EDT [facility] Blood Blood specimen / Unknown 04/17/2025 4:10 PM EDT 04/17/2025 4:16 PM EDT us Juliet Moralez MD LAB BLOOD ORDERABLES Final Resu lt [place] [id number], [address] [address] * ECHOCARDIOGRAM COMPREHENSIVE (04/17/2025 9:13 AM EDT) LV mccarthy vol 3D 194.0 mL LV Diastolic Volume Index (F:29-61, M:35-75) 88.1 mL/m2 LV Diastolic Volume 172 mL LV sys vol 3D 87.0 mL LV Systolic Volume Index (F:8-24, M:11-31) 34.8 mL/m2 LV Systolic Volume 68 mL IVS (F:0.6-0.9, M:0.6-1.0) 0.8 cm IVS Mean (F:0.6-0.9, M:0.6-1.0) 0.8 cm LVIDD (F:3.8-5.2, M:4.2-5.8) 5.0 cm LVIDD Mean (F:3.8-5.2, M:4.2-5.8) 5.0 cm LVIDS (F:2.2-3.5, M:2.5-4.0) 3.5 cm LVIDS (F:2.2-3.5, M:2.5-4.0) 3.5 cm LVOT diameter 2.2 cm LVOT diameter mean 2.2 cm LVOT mn grad mean 3.0 mmHg LVOT VTI MEAN 25.4 cm LVOT mn grad 3.0 mmHg LVOT VTI 25.4 cm LVOT peak raji 1.3 m/s LVOT peak raji mean 1.3 m/s PW (F:0.6-0.9, M:0.6-1.0) 0.9 cm PW Mean (F:0.6-0.9, M:0.6-1.0) 0.9 cm MV E' Lateral Velocity 17.00 cm/s MV E' Lateral Velocity Mean 17.00 cm/s MV E' Septal Velocity 9.25 cm/s MV E' Septal Velocity Mean 9.25 cm/s LA sup-inf (apical 2-ch view) 5.11 cm LA volume 49.6 mL RA area 18.8 cm2 RA 2D Volume 54.8 mL Ao peak raji 1.4 m/s Sinuses of Valsalva 3.6 cm Sinuses of Valsalva Mean 3.6 cm Ascending aorta 3.0 cm Ascending aorta mean 3.0 cm Ascending aorta Index 1.5 cm/m2 Inferior Vena Cava Diameter 1.6 cm Inferior Vena Cava Diameter Mean 1.6 cm E wave decelartion time 220 ms E wave decelartion time mean 220 ms MV stenosis pressure 1/2 time mean 64 ms MV stenosis pressure 1/2 time 64 ms MV Peak A-Wave 37.8 cm/s MV Peak A-Wave Mean 37.8 cm/s MV Peak E-Wave 81.4 cm/s MV Peak E-Wave Mean 81.4 cm/s PV PEAK VELOCITY 1.2 m/s PV PEAK VELOCITY Mean 1.2 m/s RVID d 4.0 cm RVID d Mean 4.0 cm RV Free wall pk S' 16.6 cm/s RV Free wall pk S' Mean 16.6 cm/s Tapse 2.7 cm Tapse Mean 2.7 cm TR Peak Raji 1.9 m/s Heart Rate 67 bpm BP Systolic 121 mmHg BP Diastolic 73 mmHg Height 69.00 inches Weight 175.00 lbs TR Peak Gradient 14 mmHg LA Volume Index (16-34) 25.4 mL/m2 E/E' ratio 4.79 AV peak gradient 7.8 mmHg LVOT stroke volume 97 mL LVOT area 3.8 cm2 E/A ratio 2.15 PV peak gradient 5.8 mmHg MV valve area p 1/2 method 3.44 cm2 AV LVOT peak gradient 6.8 mmHg SVI 49 mL/m2 Sinuses of Valsalva Index 1.8 cm/m2 EF - 3D Echo 55 % Murcia BP EF (55-75) 60 % LA Volume Index 28.1 mL/m2 E/E' Average 6.8 E/E' Septal 8.8 E/E' Lateral 4.8 LVOT SI 49.45 mL/m2 Left Ventricular Cardiac Index 3.3 L/min/m2 Left Ventricular Cardiac Output 6.5 L/min BSA 1.95 m2 LV mass 146.8 g LV Mass Index (F:43-95, M:49-115) 75.2 g/m2 LV RWT 0.36 GLS 19.1 % EV 3D EF 50 % Est. RA pres 3 mmHg RVSP 17 mmHg PASP 17.4 mmHg Anatomical Region Laterality Modality Heart Ultrasound Narrative 04/17/2025 11:15 AM EDT Left ventricular systolic function is normal. The quantitative EF is 55% by 3D imaging, and 60% by 2D Murcia biplane. Global longitudinal strain is normal at -19.1%. Right ventricular systolic function is normal. Normal tricuspid annular plane systolic excursion (TAPSE) >1.6 cm. Normal systolic excursion velocity by TDI (>9.5 cm/s). The quantitative right ventricular ejection fraction by 3D imaging is 50%. The estimated right ventricular systolic pressure is normal at 17 mmHg. Left atrial size is normal. There is no previous study for comparison in our system. Technical Details Overall the study quality was adequate. 3D echocardiographic imaging of left ventricle structure and function and right ventricle structure and function assessment was performed demonstrating the following study findings. Left Ventricle The left ventricle is mildly dilated. Wall thickness is normal. Left ventricular systolic function is normal. The quantitative EF is 55% by 3D imaging, and 60% by 2D [place]cia biplane. Global longitudinal strain is normal at -19.1%. No wall motion abnormalities are present. Diastolic function is normal. Stroke volume is normal. Right Ventricle The right ventricle is mildly dilated. Right ventricular systolic function is normal. Normal tricuspid annular plane systolic excursion (TAPSE) >1.6 cm. Normal systolic excursion velocity by TDI (>9.5 cm/s). The quantitative right ventricular ejection fraction by 3D imaging is 50%. Left Atrium Left atrial size is normal. Right Atrium Right atrial size is normal. Based on IVC diameter and collapse, right atrial pressure is estimated to be normal (3 mmHg). There is no evidence of an intra- atrial shunt by color Doppler. Mitral Valve The mitral valve is structurally normal. There is no mitral regurgitation. Tricuspid Valve The tricuspid valve is structurally normal. There is trace tricuspid regurgitation. The estimated right ventricular systolic pressure is normal at 17 mmHg. Aortic Valve The aortic valve is tricuspid. There is no aortic regurgitation or stenosis. Pulmonic Valve The pulmonic valve is structurally normal. There is trace pulmonic regurgitation. Ascending Aorta The aortic root and ascending aorta are normal in dimension. The aortic root measures 3.6 cm (1.8 cm/m2) and the ascending aorta measures 3.0 cm (1.5 cm/m2). Pericardium There is no pericardial effusion. Prior Study There is no previous study for comparison in our system. Erma Ballesteros MD CV ECHO ORDERABLES Final Result * (ABNORMAL) Protime-INR (04/17/2025 8:11 AM EDT) [facility] Signature Anticoagulant IV HEPARIN, UNFRACTIONATED 04/17/2025 7:53 AM EDT [facility] Prothrombin Time (PT) 14.1(H) 10.0 - 13.5 seconds 04/17/2025 8:42 AM EDT [facility] INR 1.2 04/17/2025 8:42 AM EDT [facility] Comment:INR Therapeutic Rang es: Standard dose anticoagulant 2.0 to 3.0, High dose anticoagulant 2.5-3.5. Blood Blood specimen / Unknown 04/17/2025 8:11 AM EDT 04/17/2025 8:15 AM EDT Juliet Moralez MD LAB BLOOD ORDERABLES Final Resu lt [address] [address], [address] [address] * (ABNORMAL) Complete Blood Count WITHOUT Differential (04/17/2025 8:11 AM EDT) White Blood Cell Count 7.8 4.0 - 11.0 Thou/uL 04/17/2025 8:21 AM EDT [facility] Platelet Count 132(L) 150 - 450 Thou/uL 04/17/2025 8:21 AM T [facility] Hemoglobin 10.2(L) 13.0 - 17.7 g/dL 04/17/2025 8:21 AM EDT [facility] Hematocrit 30.7(L) 39.0 - 54.0 % 04/17/2025 8:21 AM T [facility] Red Blood Cell Count 3.45(L) 4.50 - 6.20 Mil/uL 04/17/2025 8:21 AM EDT [facility] MCV 89 80 - 100 fL 04/17/2025 8:21 AM EDT [facility] MCH 29.6 26.0 - 34.0 pg 04/17/2025 8:21 AM EDT [facility] MCHC 33.2 30.0 - 36.0 g/dL 04/17/2025 8:21 AM [facility] RDW 13.7 11.5 - 14.5 % 04/17/2025 8:21 AM [facility] MPV 10.4 7.5 - 12.5 fL 04/17/2025 8:21 AM T [facility] Immature Platelet Fraction 3.8 1.2 - 8.6 % 04/17/2025 8:21 AM [facility] Blood Blood specimen / Unknown 04/17/2025 8:11 AM EDT 04/17/2025 8:15 AM EDT us Juliet Moralez MD LAB BLOOD ORDERABLES Final Resu lt [address] [address], [address] [address] * Partial Thromboplastin Time (PTT) (04/17/2025 8:11 AM EDT) Anticoagulant IV HEPARIN, UNFRACTIONATED 04/17/2025 7:53 AM EDT [facility] Partial Thromboplastin Time (PTT) 28 25 - 36 seconds 04/17/2025 8:42 AM EDT [facility] Blood Blood specimen / Unknown 04/17/2025 8:11 AM EDT 04/17/2025 8:15 AM EDT Juliet Moralez MD LAB BLOOD ORDERABLES Final Resu lt Performing Organization Address City/[facility]/ZIP Co de Phone Number [address] [address], [address] [address] * (ABNORMAL) Iron and Total Iron Binding Capacity (04/17/2025 5:46 AM EDT) Iron 39(L) 53 - 167 ug/dL 04/17/2025 8:19 AM EDT [facility] UIBC 206 112 - 346 ug/dL 04/17/2025 8:19 AM EDT [facility] Total Iron Binding Capacity 245 100 - 400 ug/dL 04/17/2025 8:19 AM EDT [facility] Iron Sat 16(L) 20 - 50 % 04/17/2025 8:19 AM EDT [facility] 04/17/2025 5:46 AM EDT 04/17/2025 5:50 AM EDT Erma Ballesteros MD LAB BLOOD ORDERABLES Final Resul t [address] [address], [address] [address] * (ABNORMAL) FERRITIN (04/17/2025 5:46 AM EDT) Ferritin 431(H) 30 - 400 ug/L 04/17/2025 8:19 AM EDT [facility] 04/17/2025 5:46 AM EDT 04/17/2025 5:50 AM EDT us Erma Ballesteros MD LAB BLOOD ORDERABLES Final Resul t [facility] [address] [facility] [place] [address], [facility] [address] [place] [address] * (ABNORMAL) COMPLETE BLOOD COUNT, WITHOUT DIFFERENTIAL (04/17/2025 5:46 AM EDT) White Blood Cell Count 7.8 4.0 - 11.0 Thou/uL 04/17/2025 6:14 AM EDT [facility] Platelet Count 124(L) 150 - 450 Thou/uL 04/17/2025 6:14 AM EDT [facility] Hemoglobin 10.2(L) 13.0 - 17.7 g/dL 04/17/2025 6:14 AM EDT [facility] Hematocrit 31.3(L) 39.0 - 54.0 % 04/17/2025 6:14 AM EDT [facility] Red Blood Cell Count 3.49(L) 4.50 - 6.20 Mil/uL 04/17/2025 6:14 AM EDT [facility] MCV 90 80 - 100 fL 04/17/2025 6:14 AM EDT [facility] MCH 29.2 26.0 - 34.0 pg 04/17/2025 6:14 AM EDT [facility] MCHC 32.6 30.0 - 36.0 g/dL 04/17/2025 6:14 AM EDT [facility] RDW 13.7 11.5 - 14.5 % 04/17/2025 6:14 AM EDT [facility] MPV 10.8 7.5 - 12.5 fL 04/17/2025 6:14 AM EDT [facility] Immature Platelet Fraction 4.1 1.2 - 8.6 % 04/17/2025 6:14 AM EDT [facility] Blood Blood specimen / Unknown 04/17/2025 5:46 AM EDT 04/17/2025 5:50 AM EDT Erma Ballesteros MD LAB BLOOD ORDERABLES Final Resul t Performing Organization Address City/[facility]/ZIP Co de Phone Number [facility] [address] [facility] [place] [address], [facility] [address] [place] [address] * Basic Metabolic Panel (04/17/2025 5:46 AM EDT) Glucose 86 65 - 99 mg/dL 04/17/2025 6:43 AM EDT [facility] Comment:Fasting: <100 mg/dL, Non-Fasting: <200 mg/dL (ADA 2005) Blood Urea Nitrogen (BUN) 10 8 - 21 mg/dL 04/17/2025 6:43 AM EDT [facility] Creatinine 1.0 0.5 - 1.3 mg/dL 04/17/2025 6:43 AM EDT [facility] eGFR >90 >59 04/17/2025 6:43 AM EDT [facility] Comment:CKD-EPI (2020) in mL /min/1.73 sq meters. Sodium 139 136 - 145 mmol/L 04/17/2025 6:43 AM EDT [facility] Potassium 4.4 3.4 - 5.3 mmol/L 04/17/2025 6:43 AM EDT [facility] Chloride 103 98 - 107 mmol/L 04/17/2025 6:43 AM EDT [facility] CO2 25 22 - 33 mmol/L 04/17/2025 6:43 AM EDT [facility] Anion Gap 11 7 - 17 04/17/2025 6:43 AM EDT [facility] Calcium 8.9 8.7 - 10.5 mg/dL 04/17/2025 6:43 AM EDT [facility] BUN/Creatinine Ratio 10 10.0 - 25.0 Ratio 04/17/2025 6:43 AM EDT [facility] Blood Blood specimen / Unknown 04/17/2025 5:46 AM EDT 04/17/2025 5:50 AM EDT us Erma Ballesteros MD LAB BLOOD ORDERABLES Final Resul t [address] [address], [address] [address] * (ABNORMAL) Hemoglobin and Hematocrit (04/17/2025 12:50 AM EDT) Hematocrit 29.3(L) 39.0 - 54.0 % 04/17/2025 1:21 AM EDT [facility] Hemoglobin 9.8(L) 13.0 - 17.7 g/dL 04/17/2025 1:21 AM EDT [facility] Blood Blood specimen / Unknown 04/17/2025 12:50 AM EDT 04/17/2025 12:54 AM EDT us Erma Ballesteros MD LAB BLOOD ORDERABLES Final Resul t Performing Organization Address [facility] Co de Phone Number [address] [address], [address] [address] * CTA Abdomen+pelvis w w/o contrast (04/16/2025 9:37 PM EDT) Anatomical Region Laterality Modality CTA Body Computed Tomogra phy 04/16/2025 9:55 PM EDT Impressions 04/16/2025 10:02 PM EDT Splenomegaly 15 cm. Again noted are large multifocal areas of sharply demarcated hypoattenuation, similar to prior exam. No evidence of active extravasation. Given history of sickle cell disease, most likely representing acute infarcts. Lacerations are considered less likely. Small amount of free fluid in the abdomen and pelvis, slightly increased since prior exam. No free air. Narrative 04/16/2025 10:02 PM EDT PROCEDURE: CTA ABDOMEN+PELVIS without and with contrast MIP 3-D ([address]) EXAM DATE: 04/16/2025 9:29 PM CLINICAL HISTORY: eval for splenic infarcts vs laceration. History of sickle cell disease. TECHNIQUE: Axial computed tomographic angiography images of the abdomen and pelvis without and with intravenous contrast. This CT exam was performed using one or more of the following dose reduction techniques: automated exposure control, adjustment of the mA and/or kV according to patient size, and/or use of iterative reconstruction technique. 3D and MIP reconstructed images were created and reviewed. CONTRAST: 100 mL of Omnipaque 350 was administered intravenously. COMPARISON: Correlated with earlier CT exam. FINDINGS: VASCULATURE: Aorta: No acute findings. No abdominal aortic aneurysm. No dissection. Celiac trunk and mesenteric arteries: No acute findings. No occlusion or significant stenosis. Renal arteries: No acute findings. No occlusion or significant stenosis. Iliac arteries: No acute findings. No occlusion or significant stenosis. Lung bases: Mild left basilar atelectasis. ABDOMEN: Liver: Unremarkable. No mass. Gallbladder and bile ducts: Contracted gallbladder. No calcified stones. No ductal dilation. Pancreas: Unremarkable. No ductal dilation. No mass. Spleen: Enlarged at 15 cm. Again noted are large multifocal areas of sharply demarcated hypoattenuation, similar to prior exam. No evidence of active extravasation. Adrenals: Unremarkable. No mass. Kidneys and ureters: Unremarkable. No obstructing stones. No hydronephrosis. No solid mass. Stomach and bowel: Overall, limited evaluation of the GI tract due to paucity of intra-abdominal fat. Grossly, no definite bowel obstruction. No mucosal thickening. PELVIS: Appendix: No findings to suggest acute appendicitis. Bladder: Unremarkable. No stones. No mass. Reproductive: Unremarkable as visualized. ABDOMEN and PELVIS: Intraperitoneal space: Small amount of free fluid in the abdomen and pelvis, slightly increased since prior exam. Trace left pleural effusion. No free air. Bones/joints: No acute fracture. No dislocation. Soft tissues: Unremarkable. Lymph nodes: Unremarkable. No enlarged lymph nodes. Procedure Note Se Schaffer MD - 04/16/2025 PROCEDURE: CTA ABDOMEN+PELVIS without and with contrast MIP 3-D ([address]158) EXAM DATE: 04/16/2025 9:29 PM CLINICAL HISTORY: eval for splenic infarcts vs laceration. History of sickle celldisease. TECHNIQUE: Axial computed tomographic angiography images of the abdomen and pelviswithout and with intravenous contrast. This CT exam was performed usingone or more of the following dose reduction techniques: automatedexposure control, adjustment of the mA and/or kV according to patient size, and/or use of iterativereconstruction technique. 3D and MIP reconstructed images were created and reviewed. CONTRAST: 100 mL of Omnipaque 350 was administered intravenously. COMPARISON: Correlated with earlier CT exam. FINDINGS: VASCULATURE: Aorta: No acute findings. No abdominal aortic aneurysm. Nodissection. Celiac trunk and mesenteric arteries: No acute findings. No occlusionor significant stenosis. Renal arteries: No acute findings. No occlusion or significantstenosis. Iliac arteries: No acute findings. No occlusion or significantstenosis. Lung bases: Mild left basilar atelectasis. ABDOMEN: Liver: Unremarkable. No mass. Gallbladder and bile ducts: Contracted gallbladder. No calcifiedstones. No ductal dilation. Pancreas: Unremarkable. No ductal dilation. No mass. Spleen: Enlarged at 15 cm. Again noted are large multifocal areas ofsharply demarcated hypoattenuation, similar to prior exam. No evidence ofactive extravasation. Adrenals: Unremarkable. No mass. Kidneys and ureters: Unremarkable. No obstructing stones. Nohydronephrosis. No solid mass. Stomach and bowel: Overall, limited evaluation of the GI tract due topaucity of intra-abdominal fat. Grossly, no definite bowel obstruction.No mucosal thickening. PELVIS: Appendix: No findings to suggest acute appendicitis. Bladder: Unremarkable. No stones. No mass. Reproductive: Unremarkable as visualized. ABDOMEN and PELVIS: Intraperitoneal space: Small amount of free fluid in the abdomen andpelvis, slightly increased since prior exam. Trace left pleural effusion.No free air. Bones/joints: No acute fracture. No dislocation. Soft tissues: Unremarkable. Lymph nodes: Unremarkable. No enlarged lymph nodes. IMPRESSION: Splenomegaly 15 cm. Again noted are large multifocal areas of sharplydemarcated hypoattenuation, similar to prior exam. No evidence of activeextravasation. Given history of sickle cell disease, most likelyrepresenting acute infarcts. Lacerations are considered less likely. Small amount of free fluid in the abdomen and pelvis, slightly increasedsince prior exam. No free air. Melida Kiran MD [facility] [place] Final R esult * (ABNORMAL) Hemoglobin and Hematocrit (04/16/2025 5:51 PM EDT) [facility] Hematocrit 31.0(L) 39.0 - 54.0 % 04/16/2025 6:14 PM EDT [facility] Hemoglobin 10.2(L) 13.0 - 17.7 g/dL 04/16/2025 6:14 PM EDT [facility] Blood Blood specimen / Unknown 04/16/2025 5:51 PM EDT 04/16/2025 6:04 PM EDT Erma Ballesteros MD LAB BLOOD ORDERABLES Final Resul t [address] [address], [address] [address] * ECG 12 lead (04/16/2025 12:04 PM EDT) Pathologist [facility] [place] Ventricular rate 59 BPM EKG [facility] Atrial rate 59 BPM EKG [facility] P-R interval 132 ms EKG [facility] QRS duration 84 ms EKG [facility] Q-T interval 422 ms EKG [facility] QTC calculation (Bazett) 417 ms EKG [facility] P axis 68 degrees EKG [facility] R axis 53 degrees EKG [facility] T axis 49 degrees EKG [facility] 04/16/2025 12:0 4 PM EDT Narrative EKG [facility] - 04/16/2025 4:36 PM EDT Sinus bradycardia Nonspecific T wave abnormality Abnormal ECG When compared with ECG of 15-Jan-2022 17:07, Nonspecific T wave abnormality now evident in Inferior leads Nonspecific T wave abnormality now evident in Lateral leads Confirmed by MD Kingsley Joshua ([id number]) on 04/16/2025 4:36:29 PM Procedure Note Jorden Kingsley DO - 04/16/2025 Sinus bradycardia Nonspecific T wave abnormality Abnormal ECG When compared with ECG of 15-Jan-2022 17:07, Nonspecific T wave abnormality now evident in Inferior leads Nonspecific T wave abnormality now evident in Lateral leads Confirmed by MD Kingsley Joshua ([id number]) on 04/16/2025 4:36:29 PM us Erma Ballesteros MD ECG ORDERABLES Final Result G [facility] * CT Abdomen+pelvis w/contrast (04/16/2025 10:47 AM EDT) Anatomical Region Laterality Modality Abdomen, Pelvis Computed Tomogra phy 04/16/2025 10:5 7 AM EDT Impressions 04/16/2025 11:04 AM EDT Splenomegaly and markedly abnormal spleen most consistent with splenic infarcts. Alternatively but less likely splenic laceration cannot be excluded. Correlate for trauma. In light of the patient having sickle cell trait favor splenic infarction. Narrative 04/16/2025 11:[address] ABDOMEN+PELVIS W/CONTRAST: 04/16/2025 10:38 AM Indication: L sided abd pain x 1 week. L sided abd pain x 1 week Technique: Iterative reconstruction technique was employed to reduce patient radiation exposure Contrast: 100 ml of Omnipaque 350. CT scan of the abdomen: Helical imaging through the abdomen was performed at 0.6 mm collimation after intravenous contrast administration and multiplanar reformatted images were created. Visualized lungs clear. Liver normal. Splenomegaly. Spleen measures 15.4 cm in longitudinal dimension. Areas of decreased attenuation along the medial aspect of the spleen and the inferior aspect of the spleen could represent splenic infarction. Alternatively but less likely splenic laceration cannot be excluded. The splenic artery and vein appears to be patent. Pancreas and adrenal glands are normal. Kidneys are enhancing normally. No mass or adenopathy. Bowel normal. CT scan of the pelvis: Helical imaging through the pelvis reveals no mass or adenopathy. Bowel normal. Small amount of ascites in the lower pelvis. Osseous structures intact. Procedure Note Luis Wiley MD - 04/16/2025 CT ABDOMEN+PELVIS W/CONTRAST: 04/16/2025 10:38 AM Indication: L sided abd pain x 1 week. L sided abd pain x 1 weekTechnique: Iterative reconstruction technique was employed to reducepatient radiation exposure Contrast: 100 ml of Omnipaque 350. CT scan of the abdomen: Helical imaging through the abdomen was performedat 0.6 mm collimation after intravenous contrast administration andmultiplanar reformatted images were created. Visualized lungs clear. Livernormal. Splenomegaly. Spleen measures 15.4 cm in longitudinal dimension. Areas of decreased attenuation alongthe medial aspect of the spleen and the inferior aspect of the spleencould represent splenic infarction. Alternatively but less likely spleniclaceration cannot be excluded. The splenic artery and vein appears to be patent. Pancreas and adrenal glandsare normal. Kidneys are enhancing normally. No mass or adenopathy. Bowelnormal. CT scan of the pelvis: Helical imaging through the pelvis reveals no massor adenopathy. Bowel normal. Small amount of ascites in the lower pelvis.Osseous structures intact. IMPRESSION: Splenomegaly and markedly abnormal spleen most consistent with splenicinfarcts. Alternatively but less likely splenic laceration cannot beexcluded. Correlate for trauma. In light of the patient having sickle celltrait favor splenic infarction. us Patrick Harkins MD IMG CT ORDERABLES Final Result * Lipase (04/16/2025 10:04 AM EDT) Lipase 16 13 - 60 U/L 04/16/2025 10:36 AM EDT [facility] Blood Blood specimen / Unknown 04/16/2025 10:04 AM EDT 04/16/2025 10:12 AM EDT us Patrick Harkins MD LAB BLOOD ORDERABLES Final Resu lt Performing Organization Address City/[facility]/ZIP Co de Phone Number [address] [address], [address] [address] * Magnesium (04/16/2025 10:04 AM EDT) Magnesium 2.0 1.6 - 2.7 mg/dL 04/16/2025 10:36 AM EDT [facility] Blood Blood specimen / Unknown 04/16/2025 10:04 AM EDT 04/16/2025 10:12 AM EDT us Patrick Harkins MD LAB BLOOD ORDERABLES Final Resu lt [place] [id number] [facility] [place] [address], [facility] [address] [place] [address] * (ABNORMAL) Comprehensive Metabolic Panel (04/16/2025 10:04 AM EDT) Glucose 98 65 - 99 mg/dL 04/16/2025 10:36 AM [facility] Comment:Fasting: <100 mg/dL, Non-Fasting: <200 mg/dL (ADA 2005) Blood Urea Nitrogen (BUN) 11 8 - 21 mg/dL 04/16/2025 10:36 AM T [facility] Creatinine 1.0 0.5 - 1.3 mg/dL 04/16/2025 10:36 AM [facility] eGFR >90 >59 04/16/2025 10:36 AM [facility] Comment:CKD-EPI (2020) in mL /min/1.73 sq meters. Sodium 138 136 - 145 mmol/L 04/16/2025 10:36 AM [facility] Potassium 4.4 3.4 - 5.3 mmol/L 04/16/2025 10:36 AM [facility] Chloride 100 98 - 107 mmol/L 04/16/2025 10:36 AM T [facility] CO2 25 22 - 33 mmol/L 04/16/2025 10:36 AM [facility] Calcium 9.3 8.7 - 10.5 mg/dL 04/16/2025 10:36 AM [facility] Alkaline Phosphatase 56 45 - 128 U/L 04/16/2025 10:36 AM [facility] Aspartate Aminotrans (AST) 30 10 - 55 U/L 04/16/2025 10:36 AM [facility] Alanine Aminotrans (ALT) 12 10 - 55 U/L 04/16/2025 10:36 AM [facility] Bilirubin, Total 1.9(H) 0.2 - 1.0 mg/dL 04/16/2025 10:36 AM [facility] Protein, Total 6.9 6.3 - 8.3 g/dL 04/16/2025 10:36 AM [facility] Albumin 4.2 3.5 - 5.0 g/dL 04/16/2025 10:36 AM EDT [facility] BUN/Creatinine Ratio 11 10.0 - 25.0 Ratio 04/16/2025 10:36 AM T [facility] Globulin 2.7 1.5 - 3.9 g/dL 04/16/2025 10:36 AM T [facility] Albumin/Globulin Ratio 1.6 1.0 - 3.0 Ratio 04/16/2025 10:36 AM EDT [facility] Anion Gap 13 7 - 17 04/16/2025 10:36 AM EDT [facility] Blood Blood specimen / Unknown 04/16/2025 10:04 AM EDT 04/16/2025 10:12 AM EDT Patrick Harkins MD LAB [place]LOOD [place] [address], [place] [address] * (ABNORMAL) Complete Blood Count, with Differential (04/16/2025 10:04 AM EDT) White Blood Cell Count 9.2 4.0 - 11.0 Thou/uL 04/16/2025 10:26 AM [facility] Platelet Count 128(L) 150 - 450 Thou/uL 04/16/2025 10:26 AM [facility] Hemoglobin 10.4(L) 13.0 - 17.7 g/dL 04/16/2025 10:26 AM [facility] Hematocrit 31.6(L) 39.0 - 54.0 % 04/16/2025 10:26 AM [facility] Red Blood Cell Count 3.52(L) 4.50 - 6.20 Mil/uL 04/16/2025 10:26 AM [facility] MCV 90 80 - 100 fL 04/16/2025 10:26 AM [facility] MCH 29.5 26.0 - 34.0 pg 04/16/2025 10:26 AM [facility] MCHC 32.9 30.0 - 36.0 g/dL 04/16/2025 10:26 AM [facility] RDW 13.8 11.5 - 14.5 % 04/16/2025 10:26 AM [facility] MPV 11.5 7.5 - 12.5 fL 04/16/2025 10:26 AM [facility] Immature Platelet Fraction 5.4 1.2 - 8.6 % 04/16/2025 10:26 AM [facility] Neutrophils Auto 79.3 % 04/16/20 10:26 AM [facility] Immature Granulocytes 0.4 % 04/16/2025 10:26 AM [facility] Lymphocytes Auto 12.8 % 04/16/20 10:26 AM [facility] Monocytes Auto 6.4 % 04/16/2025 10:26 AM [facility] Eosinophils Auto 0.9 % 04/16/20 10:26 AM [facility] Basophils Auto 0.2 % 04/16/2025 10:26 AM [facility] Abs Neutrophils Auto 7.31 2.00 - 7.50 Thou/uL 04/16/2025 10:26 AM [facility] Abs Immature Granulocytes 0.04 0.00 - 0.10 Thou/uL 04/16/2025 10:26 AM [facility] Abs Lymphocytes Auto 1.18(L) 1.50 - 4.50 Thou/uL 04/16/2025 10:26 AM [facility] Abs Monocytes Auto 0.59 0.20 - 1.50 Thou/uL 04/16/2025 10:26 AM [facility] Abs Eosinophils Auto 0.08 0.00 - 0.70 Thou/uL 04/16/2025 10:26 AM [facility] Abs Basophils Auto 0.02 0.00 - 0.20 Thou/uL 04/16/2025 10:26 AM [facility] Blood Blood specimen / Unknown 04/16/2025 10:04 AM EDT 04/16/2025 10:12 AM EDT Patrick Harkins MD LAB BLOOD ORDERABLES Final Resu lt [facility] [address] [facility] [place] [address], [facility] [address] [place] [address] documented in this encounter Visit Diagnoses Diagnosis Splenic infarct- Primary Other diseases of spleen Splenic infarct Other diseases of spleen Abdominal pain Abdominal pain, unspecified site Anemia Unspecified anemia Elevated bilirubin Thrombocytopenia Unspecified thrombocytopenia Sickle cell trait Sickle-cell trait Abdominal pain Abdominal pain, unspecified site documented in this encounter Admitting Diagnoses Diagnosis Splenic infarct Other diseases of spleen documented in this encounter Administered Medications Inactive Administered Medications - up to 1 most recent administrations Medication Order MAR Action Action Date Dose Rate Site sodium chloride 0.9 % (NS) bolus 1,000 mL, Intravenous, Administer over 0.5 Hours, Once, On Stephany 04/16/25 at 1115, For 1 dose New Bag 04/16/2025 11:36 AM EDT 1,000 mL 2000 mL/hr acetaminophen (TYLENOL) tablet 650 mg 650 mg, Oral, Every 6 hours PRN, mild pain 1-3, fever greater than 101.5, Starting on Stephany 04/16/25 at 1425, May use for pain when patient is tolerating PO Given 04/17/2025 9:56 PM EDT 650 mg apixaban (ELIQUIS) tablet 5 mg 5 mg, Oral, Once, On 04/18/25 at 1130, For 1 dose, Tablets may be crushed and suspended in 60 mL of water, D5W, or apple juice or mixed with applesauce; administer immediately. For delivery through a nasogastric tube, crushed tablets may be suspended in 60 mL of water or D5W followed by immediate delivery., Indication for Anticoagulation: Other, Specify: Splenic infarct Given 04/18/2025 11:27 AM EDT 5 mg ferric gluconate (FERRLECIT) 125 mg in sodium chloride (NS) 0.9 % 100 mL IVPB 125 mg, Intravenous, Administer over 60 Minutes, Once, On Sun04/17/25 at 1400, For 1 dose New Bag 04/17/2025 3:45 PM EDT 125 mg 110 mL/hr heparin (porcine) 1000 unit/mL injection 6,300 Units 6,300 Units (rounded from 6,256 Units = 80 Units/kg 78.2 kg), Intravenous, Once, On Sun04/17/25 at 0800, For 1 dose, MAXIMUM INITIAL BOLUS DOSE 10,000 UNITS (NO BOLUSES FOR CARDIOTHORACIC SURGERY OR HIGH BLEEDING RISK STROKE PATIENTS) Initial bolus dose per heparin thromboembolic/standard /full dose protocol; Round to nearest 100 units. Start heparin infusion immediately after initial bolus dose is administered., Indication for Anticoagulation: Other, Specify: splenic infarct Given 04/17/2025 10:03 AM EDT 6,300 Units heparin (porcine) IV infusion 25,000 units in 500 mL 0.45% NaCl (premix) 23.46 mL/hr (15 Units/kg/hr 78.2 kg), Intravenous, Continuous, Starting on Sun04/17/25 at 0800, HEPARIN THROMBOEMBOLIC/STANDARD /FULL DOSE PROTOCOL: Initial Infusion Dose: See dose above, MAX initial dose 1,800 units/hr (120 kg and above) Dose adjustment instructions: - Obtain a Heparin Anti-factor Xa (Anti-Xa) level 6 hours after start of infusion and 6 hours after every dose change. - Once patient is within therapeutic range for two consecutive Anti-Xa measurements, then obtain Anti-Xa daily with AM labs until infusion is discontinued. When heparin infusion is interrupted: - For less than or equal to 90 minutes: ~ Restart heparin infusion at the most recent dose and draw Anti-Xa level in 6 hours from restart. ~ No bolus required. Adjust per protocol. - For greater than 90 minutes or if heparin interruption for unknown time period: ~ Draw stat Anti-Xa level (Do not adjust infusion dose based on this Anti-Xa result). ~ Restart heparin infusion at most recent dose (most recent dose may be anytime during the patient's current admission). ~ Notify licensed practioner regarding interruption and discuss if IV bolus is necessary; licensed practioner to consider ordering IV bolus if greater than 6 hours heparin interruption. ~ Draw Anti-Xa in 6 hours and proceed per protocol. - Document all pertinent communications with providers in the patient's record. - Adjust infusion based on Anti-Xa result per Standard protocol table: Concentration = 50 units/mL, Indication for Anticoagulation: Other, Specify: splenic infarct Rate/Dose Verify 04/18/2025 7:36 AM EDT 15 Units/kg/hr 23.46 mL/hr HYDROmorphone (DILAUDID) injection 0.5 mg 0.5 mg, Intravenous, Every 3 hours PRN, severe to excruciating pain 7-10, Starting on Stephany 04/16/25 at 1425, For 7 days, Patient is judged to be elderly/frail, opioid na ve, or renal/hepatic insufficient Use ONLY if patient cannot tolerate PO For IV Push, administer over 2 to 3 minutes. Given 04/17/2025 1:04 PM EDT 0.5 mg iohexol (OMNIPAQUE) 350 mg/mL injection 100 mL 100 mL, Intravenous, Once in imaging, contrast, Starting on Stephany 04/16/25 at 1038, For 1 dose, Radiology Appointment Given 04/16/2025 10:48 AM EDT 100 mL iohexol (OMNIPAQUE) 350 mg/mL injection 100 mL 100 mL, Intravenous, Once in imaging, contrast, Starting on Stephany 04/16/25 at 2129, For 1 dose, Radiology Appointment Given 04/16/2025 9:30 PM EDT 100 mL ketorolac (TORADOL) injection 15 mg 15 mg, Intravenous, Once, On Stephany 04/16/25 at 1115, For 1 dose, If ordered IV Push: administer undiluted over 2 minutes. Given 04/16/2025 11:35 AM EDT 15 mg morphine preservative free 4 mg/mL injection 4 mg 4 mg, Intravenous, Once, On Stephany 04/16/25 at 1115, For 1 dose, For IV Push, dilute to 10 mL NS and administer over 4 minutes. Given 04/16/2025 11:35 AM EDT 4 mg oxyCODONE-acetaminophen (PERCOCET) 5-325 mg tablet 1 tablet 1 tablet, Oral, Every 4 hours PRN, moderate to moderately severe pain 4-6, Starting on 04/18/25 at 0200, For 7 days, Use when patient is tolerating PO oxyCODONE-acetaminophen (PERCOCET) 5-325 mg tablet 2 tablet 2 tablet, Oral, Every 4 hours PRN, severe to excruciating pain 7-10, Starting on 04/18/25 at 0200, For 7 days, Use when patient is tolerating PO senna-docusate (SENNA-S) 8.6-50 MG tablet 2 tablet 2 tablet, Oral, Nightly, First dose on Sun04/16/25 at 2100, Hold for diarrhea Given 04/17/2025 8:08 PM EDT 2 tablets sodium chloride 0.45% (HALF SALINE) infusion 100 mL/hr, Intravenous, Continuous, Starting on Stephany 04/16/25 at 1430, For 1 day New Bag 04/17/2025 4:17 AM EDT 100 mL/hr 100 mL/hr documented in this encounter Active and Recently Administered Medications Times are shown in EDT. Scheduled Medication Order 04/16/2025 04/17/2025 04/18/2025 sodium chloride 0.9 % (NS) bolus (COMPLETED) 1,000 mL, Intravenous, Administer over 0.5 Hours, Once, On Stephany 04/16/25 at 1115, For 1 dose 1136 (New Bag - Provider: Mal Birch RN)1305 (Stopped - Provider: Mal Birch RN) apixaban (ELIQUIS) tablet 5 mg (COMPLETED) 5 mg, Oral, Once, On 04/18/25 at 1130, For 1 dose, Tablets may be crushed and suspended in 60 mL of water, D5W, or apple juice or mixed with applesauce; administer immediately. For delivery through a nasogastric tube, crushed tablets may be suspended in 60 mL of water or D5W followed by immediate delivery., Indication for Anticoagulation: Other, Specify: Splenic infarct 1127 (Given - Provider: Nydia Wilks RN) ferric gluconate (FERRLECIT) 125 mg in sodium chloride (NS) 0.9 % 100 mL IVPB (COMPLETED) 125 mg, Intravenous, Administer over 60 Minutes, Once, On Sun04/17/25 at 1400, For 1 dose 1545 (New Bag - Provider: Say Dale RN)1700 (Stopped - Provider: Say Dale RN) heparin (porcine) 1000 unit/mL injection 6,300 Units (COMPLETED) 6,300 Units (rounded from 6,256 Units = 80 Units/kg 78.2 kg), Intravenous, Once, On Sun04/17/25 at 0800, For 1 dose, MAXIMUM INITIAL BOLUS DOSE 10,000 UNITS (NO BOLUSES FOR CARDIOTHORACIC SURGERY OR HIGH BLEEDING RISK STROKE PATIENTS) Initial bolus dose per heparin thromboembolic/standard/f ull dose protocol; Round to nearest 100 units. Start heparin infusion immediately after initial bolus dose is administered., Indication for Anticoagulation: Other, Specify: splenic infarct 1003 (Given - Provider: Sumit Easton, JENNIFER) ketorolac (TORADOL) injection 15 mg (COMPLETED) 15 mg, Intravenous, Once, On Stephany 04/16/25 at 1115, For 1 dose, If ordered IV Push: administer undiluted over 2 minutes. 1135 (Given - Provider: Mal Birch, JENNIFER) morphine preservative free 4 mg/mL injection 4 mg (COMPLETED) 4 mg, Intravenous, Once, On Stephany 04/16/25 at 1115, For 1 dose, For IV Push, dilute to 10 mL NS and administer over 4 minutes. 1135 (Given - Provider: Mal Birch RN) senna-docusate (SENNA-S) 8.6-50 MG tablet 2 tablet 2 tablet, Oral, Nightly, First dose on Stephany 04/16/25 at 2100, Hold for diarrhea 2157 (Given - Provider: Emelina Phelps RN) 2007 (Given - Provider: Telma Bhatti RN) Continuous Medication Order 04/16/2025 04/17/2025 04/18/2025 heparin (porcine) IV infusion 25,000 units in 500 mL 0.45% NaCl (premix) (CANCELED) 23.46 mL/hr (15 Units/kg/hr 78.2 kg), Intravenous, Continuous, Starting on Sun04/17/25 at 0800, HEPARIN THROMBOEMBOLIC/STANDARD/F ULL DOSE PROTOCOL: Initial Infusion Dose: See dose above, MAX initial dose 1,800 units/hr (120 kg and above) Dose adjustment instructions: - Obtain a Heparin Anti-factor Xa (Anti-Xa) level 6 hours after start of infusion and 6 hours after every dose change. - Once patient is within therapeutic range for two consecutive Anti-Xa measurements, then obtain Anti-Xa daily with AM labs until infusion is discontinued. When heparin infusion is interrupted: - For less than or equal to 90 minutes: ~ Restart heparin infusion at the most recent dose and draw Anti-Xa level in 6 hours from restart. ~ No bolus required. Adjust per protocol. - For greater than 90 minutes or if heparin interruption for unknown time period: ~ Draw stat Anti-Xa level (Do not adjust infusion dose based on this Anti-Xa result). ~ Restart heparin infusion at most recent dose (most recent dose may be anytime during the patient's current admission). ~ Notify licensed practioner regarding interruption and discuss if IV bolus is necessary; licensed practioner to consider ordering IV bolus if greater than 6 hours heparin interruption. ~ Draw Anti-Xa in 6 hours and proceed per protocol. - Document all pertinent communications with providers in the patient's record. - Adjust infusion based on Anti-Xa result per Standard protocol table: Concentration = 50 units/mL, Indication for Anticoagulation: Other, Specify: splenic infarct 1006 (New Bag - Provider: Sumit Easton, JENNIFER)1255 (Handoff - Provider: Say Dale RN)1657 (Rate/Dose Verify - Provider: Say Dale RN)1946 (Handoff - Provider: Say Dale RN)2210 (Rate/Dose Verify - Provider: Telma Bhatti RN - Comment: Dose/rate verfied by JENNIFER No. AntiXa therapeutic, no change) 0534 (New Bag - Provider: Marybel Rios RN)0736 (Rate/Dose Verify - Provider: Telma Bhatti RN - Comment: Dose/rate verify with Marybel. No change. AntiXa is therapeutic)0743 (Handoff - Provider: Telma Bhatti RN)1114 (Stopped - Provider: Nydia Wilks RN) sodium chloride 0.45% (HALF SALINE) infusion () 100 mL/hr, Intravenous, Continuous, Starting on Stephany 04/16/25 at 1430, For 1 day 1519 (New Bag - Provider: Elisabeth Connor, JENNIFER) 0417 (New Bag - Provider: Emelina Phelps RN) PRN Medication Order 04/16/2025 04/17/2025 04/18/2025 acetaminophen (TYLENOL) tablet 650 mg 650 mg, Oral, Every 6 hours PRN, mild pain 1-3, fever greater than 101.5, Starting on Stephany 04/16/25 at 1425, May use for pain when patient is tolerating PO 2155 (Given - Provider: Emelina Phelps RN) 2155 (Given - Provider: Telma Bhatti RN) bisacodyl (DULCOLAX) suppository 10 mg 10 mg, Rectal, Daily PRN, constipation, if no bowel movement by day 2, Starting on Stephany 04/16/25 at 1425 HYDROmorphone (DILAUDID) injection 0.2 mg 0.2 mg, Intravenous, Every 3 hours PRN, mild pain 1-3, Starting on Stephany 04/16/25 at 1425, For 1 day 11 hours, Patient is judged to be elderly/frail, opioid na ve, or renal/hepatic insufficient Use ONLY if patient cannot tolerate PO For IV Push, administer over 2 to 3 minutes. HYDROmorphone (DILAUDID) injection 0.3 mg 0.3 mg, Intravenous, Every 3 hours PRN, moderate to moderately severe pain 4-6, Starting on Sun04/16/25 at 1425, For 1 day 11 hours, Patient is judged to be elderly/frail, opioid na ve, or renal/hepatic insufficient Use ONLY if patient cannot tolerate PO For IV Push, administer over 2 to 3 minutes. HYDROmorphone (DILAUDID) injection 0.5 mg (CANCELED) 0.5 mg, Intravenous, Every 3 hours PRN, severe to excruciating pain 7-10, Starting on Sun04/16/25 at 1425, For 7 days, Patient is judged to be elderly/frail, opioid na ve, or renal/hepatic insufficient Use ONLY if patient cannot tolerate PO For IV Push, administer over 2 to 3 minutes. 1519 (Given - Provider: Elisabeth Connor RN)1950 (Given - Provider: Emelina Phelps RN) 0634 (Given - Provider: Emelina Phelps RN)1304 (Given - Provider: Say Dale RN) HYDROmorphone (DILAUDID) injection 0.7 mg 0.7 mg, Intravenous, Every 3 hours PRN, severe to excruciating pain 7-10, Starting on Sun04/17/25 at 1312, For 12 hours, Patient is judged to be elderly/frail, opioid na ve, or renal/hepatic insufficient Use ONLY if patient cannot tolerate PO For IV Push, administer over 2 to 3 minutes. iohexol (OMNIPAQUE) 350 mg/mL injection 100 mL (COMPLETED) 100 mL, Intravenous, Once in imaging, contrast, Starting on Stephany 04/16/25 at 1038, For 1 dose, Radiology Appointment 1048 (Given - Provider: Marino Lu RT) iohexol (OMNIPAQUE) 350 mg/mL injection 100 mL (COMPLETED) 100 mL, Intravenous, Once in imaging, contrast, Starting on Stephany 04/16/25 at 2129, For 1 dose, Radiology Appointment 2130 (Given - Provider: Yolanda Owen) lactulose (ENULOSE) 10 gm/15 mL solution 20 g 20 g (30 mL), Oral, Every 4 hours PRN, constipation, if no bowel movement by day 3, Starting on Stephany 04/16/25 at 1425, Administer until bowel movement naloxone (NARCAN) 0.4 mg/mL injection 0.4 mg 0.4 mg, Intravenous, Every 5 min PRN, opioid reversal, respiratory depression, Starting on Stephany 04/16/25 at 1425, If respiratory rate is less than 8 breaths/minute or patient is difficult to arouse. Stop all narcotics and contact provider. oxyCODONE-acetaminophen (PERCOCET) 5-325 mg tablet 1 tablet 1 tablet, Oral, Every 4 hours PRN, moderate to moderately severe pain 4-6, Starting on 04/18/25 at 0200, For 7 days, Use when patient is tolerating PO oxyCODONE-acetaminophen (PERCOCET) 5-325 mg tablet 2 tablet 2 tablet, Oral, Every 4 hours PRN, severe to excruciating pain 7-10, Starting on 04/18/25 at 0200, For 7 days, Use when patient is tolerating PO documented in this encounter Care Teams Shipping Clerk Relationship Specialty Start Date End Date [facility] [address] [place] [address] PCP - General 10/05/23 documented as of this encounter
--- NOTE | 2025-04-18 19:24 | ECG_ITS ---
Test Reason : SYNCOPE Blood Pressure : */* mmHG Vent. Rate : 68 BPM Atrial Rate : 68 BPM P-R Int : 138 ms QRS Dur : 86 ms QT Int : 418 ms P-R-T Axes : 63 40 19 degrees QTcB Int : 444 ms Normal sinus rhythm Normal ECG No previous ECGs available Referred By: Generic ED Physician Electronically Signed By: MARIA ESTHER RODRIGUEZ
[2025-04-18 19:30] VITALS: BP 104/59; BP 110/70; PULSE 68; PULSE 76; RESP 22; TEMP 36.8; O2SAT 99; BMI 25.4
[2025-04-18 19:45] LABS: MANUAL DIFF FLAG NO
[2025-04-18 19:46] LABS: Hematocrit 30.3 % (42.0-52.0); Hemoglobin 10.5 g/dl (14.0-18.0); Imm Gran Abs Auto 0.03 X10*3/uL (0.00-0.03); Imm Gran Pct Auto 0.4 % (0.0-0.4); Lymphocytes Absolute Auto 0.8 X10*3/uL (1.2-4.9); Mean Corpuscular HGB Conc 34.7 g/dl (31.0-36.0); Mean Corpuscular Hemoglobin 29.8 pg (27.0-33.0); Mean Corpuscular Volume 86.1 fL (80.0-98.0); NRBC Abs Auto 0.000 X10*3/uL (0.0-0.012); NRBC Pct Auto 0.0 /100WBC (0.0-0.2); Platelet Count 210 X10*3/uL (160-400); Red Blood Count 3.52 X10*6/uL (4.60-5.80); White Blood Count 7.4 X10*3/uL (4.8-10.8)
[2025-04-18 19:53] LABS: INTERNATIONAL NORM RATIO 1.3 (0.9-1.1); Prothrombin Time 15.3 SEC (10.9-12.4)
[2025-04-18 19:57] VITALS: BP 115/59; PULSE 79; RESP 16; TEMP 36.4; O2SAT 98
[2025-04-18 20:05] LABS: Alanine Aminotransferase 14 U/L (0-40); Albumin Level 4.0 g/dL (3.5-5.0); Alkaline Phosphatase 61 U/L (39-117); Anion Gap 16 (12-20); Aspartate Amino Transferase 35 U/L (5-37); Blood Urea Nitrogen 16 mg/dL (9-16); Calcium 8.8 mg/dL (8.4-10.2); Carbon Dioxide 26 mmol/L (22-29); Chloride 105 mmol/L (96-108); Creatinine Clr Calc Pharmacy 87.1; Estimated Glomerular Filt Rate > 60; Magnesium 2.2 mg/dL (1.6-2.6); Potassium 3.8 mmol/L (3.3-5.1); Sodium 143 mmol/L (135-145); Total Protein 6.8 g/dL (6.5-8.0)
--- OUTSIDE RECORDS SUMMARY | 2025-04-18 20:12 | XMS_ITS | Encounter Summary ---
Author Organization [facility] Address [address] [place] [id number] Care Team Providers Care Supervisor Microwave Name Role Phone [facility], [facility] Primary Care Provider + Encounter Details Date Type Department Care Team (Late st Contact Info) Description 01/23/2024 Documentation [facility] CARE COORD IP [address] [place] [address] Marla Ortega, [address] [address] Social History Tobacco Use Types Packs/Day Years Used Date Smoking Tobacco: Never Smokeless Tobacco: Never Alcohol Use Standard Drinks/Week Comments Yes 0 (1 standard drink = 0.6 oz pur e alcohol) social AUDIT-C Answer Date Recorded Q1: How often do you have a drink containing alcohol? Never 01/22/2024 Q2: How many drinks containi ng alcohol do you have on a typical day when you are drinking? Patient does not drink Q3: How often do you have si x or more drinks on one occasion? Never 01/22/2024 Sex and Gender Information Value Date Recorded Sex Assigned at Male 06/09/2023 8:17 AM EDT Legal Sex Male 6:41 PM EDT Gender Identity Male 06/09/2023 8:17 AM EDT Sexual Orientation Pansexual 04/28/2024 7: 04 AM EDT documented as of this encounter Plan of Treatment Upcoming Encounters Date Type Department Care Team (Late st Contact Info) Description 05/11/2025 3:00 PM EDT Consult [facility] Department Of Hematology/Oncology [place] [address] [place] [address] Gary Jeffery MD [address] [facility] [address] [place] [address] documented as of this encounter Visit Diagnoses Not on filedocumented in this encounter Care Teams Supervisor Microwave Relationship Specialty Start Date End Date [facility] [address] [place] [address] PCP - General 10/05/23 documented as of this encounter
--- OUTSIDE RECORDS SUMMARY | 2025-04-18 20:12 | XMS_ITS | Encounter Summary ---
Author Organization [facility] Address [address] [place] [address] Care Team Providers Care Rn Appeals Name Role Phone [facility], [facility] Primary Care Provider + Richard Velásquez MD Primary Care Provider [phone] [facility] Primary Care Provider + Encounter Details Date Type Department Care Team (Late st Contact Info) Description 11/07/2021 Lab Requisition [place] COVID-[address] [phone] Mal Johnston MD [address] [place] [address] Encounter for laboratory testing for COVID-19 virus Social History Tobacco Use Types Packs/Day Years Used Date Smoking Tobacco: Never Smokeless Tobacco: Never Alcohol Use Standard Drinks/Week Comments Never 0 (1 standard drink = 0.6 oz pur e alcohol) AUDIT-C Answer Date Recorded Q1: How often do you have a drink containing alc ohol? Never 12/28/2020 Average Number of Drinks Not on file 021 Frequency of Binge Drinking Not on file 12/18 Sex and Gender Information Value Date Recorded Sex Assigned at Male 06/09/2023 8:17 AM EDT Legal Sex Male 6:41 PM EDT Gender Identity Male 06/09/2023 8:17 AM EDT Sexual Orientation Pansexual 04/28/2024 7: 04 AM EDT COVID-19 Exposure Response Date Recorded In the last month, have you been in contact with someone who was confirmed or suspected to have Coronavirus / COVID-19? No / Unsure 11/08/2021 9:59 AM EDT documented as of this encounter Plan of Treatment Upcoming Encounters Date Type Department Care Team (Late st Contact Info) Description 05/11/2025 3:00 PM EDT [facility] Department Of Hematology/Oncology [place] [address] [facility] [address] [place] [address] Gary Jeffery MD [address] [facility] [address] [place] [address] documented as of this encounter Procedures Procedure Name Priority Date/Time Associated Diagnosis Comments BEAKER COVID-19 (SARS-COV-2), EZIO (IN-HOUSE) BEAKER Routine 11/07/2021 2:38 PM EDT Encounter for laboratory testing for COVID-19 virus [ICD-10-CM] documented in this encounter Results * Beaker COVID-19 (SARS-CoV-2), EZIO (In-House) (11/07/2021 2:38 PM EDT) SARS CoV 2 Not Detected Not Detected 11/07/2021 5:26 PM EDT [facility] Comment: Negative results do not preclude SARS-CoV-2 (COVID-19)infection and should not be used as the sole basis for treatment or other patient management decisions. The SARS-CoV-2 (Covid-19) Nucleic Acid Amplification Assay is limited to laboratories certified under the Clinical Laboratory Improvement Amendments of 1988 (CLIA), 42 U.S.C. 263a, to perform high complexity tests. Nucleic acid amplication tests include RT-PCR and TMA. This assay has not been FDA cleared or approved, however, this assay has been authorized by the Food and Drug Administration (FDA) under an Emergency Use Authorization (EUA). Validation was completed and performance characteristics established by [facility] as per the FDA and CLIA requirement for this EUA. The Aptima SARS-CoV-2 assay Letter of Authorization, along with the authorized Fact Sheet for Healthcare Providers, the authorized Fact Sheet for Patients, and authorized labeling are available on the FDA website: https://www.fda.gov/medical-devices/gqxsinkti-ghlvinecwm-hnffutt-devices/emergen -us g-paespeekdmsjnu-auknczu-devices. Performed at [facility], [place], [place] License 0385 CLIA [id number] Source Anterior Nares 11/07/2021 5:26 PM EDT [facility] Comment:Performed at [facility], [place] license No. [id number] CLIA No. [id number] Microbiology Nasopharyngeal swab / Unknown 11/07/2021 2:38 PM EDT 11/07/2021 2:38 PM EDT us Mal Johnston MD MICROBIOLOGY - GENERAL ORDER YANNI Final Result [facility] [address] [place] [address] documented in this encounter Visit Diagnoses Diagnosis Encounter for laboratory testing for COVID-19 virus documented in this encounter Additional Health Concerns Infection Onset Date Last Indicated Resolved Time R/O Gastrointestinal Infection 09/21/2023 09/21/2023 09/21/2023 1:47 PM EST R/O C. Difficile Comment:C.diff negative. 09/21/2023 09/21/2023 09/21/2023 12:3 7 PM EST Gastroenteritis 09/21/2023 09/21/2023 09/23/2023 1 1:42 PM EST documented as of this encounter Care Teams Rn Appeals Relationship Specialty Start Date End Date [facility] [address] [place] [address] PCP - General 08/02/20 03/04/23 Richard Velásquez MD [address] [place] [address] PCP - General Internal Medicine 03/05/23 10/04/23 [facility] [address] [place] [address] PCP - General 10/05/23 documented as of this encounter
--- OUTSIDE RECORDS SUMMARY | 2025-04-18 20:12 | XMS_ITS | Clinical Summary ---
Author Organization [facility] Address [address] [place] [address] Care Team Providers Care Mobile Sales Assistant Name Role Phone Nathaniel Medina Primary Care Provider [phone] Allergies No known active allergies Medications No known medications Family History Medical History Relation Comments No Known Problems Father No Known Problems Mother Relation Status Comments Father Mother Social History Tobacco Use Types Packs/Day Years Used Date Smoking Tobacco: Never Smokeless Tobacco: Never Alcohol Use Standard Drinks/Week Comments Not Currently 0 (1 standard drink = 0.6 oz pur e alcohol) Sex and Gender Information Value Date Recorded Sex Assigned at Not on file Legal Sex Male 4:26 PM EST Gender Identity Not on file Sexual Orientation Not on file Last Filed Vital Signs Vital Sign Reading Time Taken Comments Blood Pressure - - Pulse - - Temperature - - Respiratory Rate - - Oxygen Saturation - - Inhaled Oxygen Concentration - - Weight 83.9 kg (185 lb) 04/07/2021 1:50 PM EDT Height 175.3 cm (5' 9 ) 04/07/2021 1:50 PM EDT Body Mass Index 27.32 04/07/2021 1:50 PM EDT Plan of Treatment Health Maintenance Due Date Last Done Comments HIV Screening 1995 Hepatitis A Vaccines (2 of 2 - 2-dose series) 09/02/2008 03/02/2008 DTaP,Tdap,and Td Vaccines (3 - Tdap) 12/06/2013 03/31/2005, 02/02/1997, 06/09/1996, Additional history exists COVID-19 Vaccine (1 - season) 2024 Influenza Vaccine (#1) 2025 06/26/2018 Zoster Vaccines (1 of 2) 12/06/2045 Hepatitis B Vaccines Completed 09/17/1996, 01/23/1996, 1995 MMR Vaccines Completed 03/18/2001, 02/02/1997 HPV Vaccines Aged Out No longer eligi ble based on patient's age to complete this topic Meningococcal Vaccine Aged Out No shruthi evelia eligible based on patient's age to complete this topic Pneumococcal Vaccine: Pediatrics (0 to 5 Years) and At-Risk Patients (6 to 49 Years) Aged Out No longer eligible based on patient's age to complete this topic Insurance MEDICAID [id number] * Guarantor: [employer] Account Type Relation to Patient Date of Phone Billing Address [employer] State [place] 1995 [place] [employer] [address] [place] [address] Care Teams Mobile Sales Assistant Relationship Specialty Start Date End Date Nathaniel Medina PCP - General Family Medicine 01/24/21
--- OUTSIDE RECORDS SUMMARY | 2025-04-18 20:12 | XMS_ITS | Encounter Summary ---
Author Organization [facility] Address [address] [place] [address] Care Team Providers Care Machine Molder Name Role Phone [facility], [facility] Primary Care Provider + Richard Velásquez MD Primary Care Provider [phone] [facility] Primary Care Provider + Encounter Details Date Type Department Care Team (Late st Contact Info) Description 11/07/2021 Scanned Document [facility] [address] [place] [phone] Provider, Generic Social History Tobacco Use Types Packs/Day Years [...] EDT Consult [facility] Department Of Hematology/Oncology [place] [address] [place] [phone] Gary Jeffery MD [address] [place] [address] documented as of this encounter Visit Diagnoses Not on filedocumented in this encounter Additional Health Concerns Infection Onset Date Last Indicated Resolved Time R/O Gastrointestinal Infection 09/21/2023 09/21/2023 09/21/2023 1:47 PM EST R/O C. Difficile Comment:C.diff negative. 09/21/2023 09/21/2023 09/21/2023 12:3 7 PM EST Gastroenteritis 09/21/2023 09/21/2023 09/23/2023 1 1:42 PM EST documented as of this encounter Care Teams Machine Molder Relationship Specialty Start Date End Date [facility] [address] [place] [address] PCP - General 08/02/20 03/04/23 Richard Velásquez MD [address] [place] [address] PCP - General Internal Medicine 03/05/23 10/04/23 [facility] [address] [place] [address] PCP - General 10/05/23 documented as of this encounter
--- OUTSIDE RECORDS SUMMARY | 2025-04-18 20:12 | XMS_ITS | Clinical Summary ---
Author Organization [facility] Address [address] [place] [address] Care Team Providers Care Neuro Psych Sales Specialist Name Role Phone [facility], [facility] Primary Care Provider + Allergies No known active allergies Medications ARIPiprazole (ABILIFY) 10 MG tablet Take 1 tablet (10 mg total) by mouth daily. Active apixaban (ELIQUIS) 5 MG tabletIndicatio ns:Splenic infarct Take 1 tablet (5 mg total) by mouth 2 (two) times a day. 180 tablet 5 Active risperiDONE (RisperDAL) 2 MG tablet Take 4 mg by mouth nightly. 2 11/09/19 22 Discontinu ed(Patient Discharge) acetaminophen (TYLENOL) 325 MG tablet Take 650 mg by mouth 4 times daily (every 6 hours) as needed for mild pain. 11/09/19 Discontinu ed(Patient Discharge) lidocaine (XYLOCAINE) 5 % ointmentIndicat ions:Anal fissure Apply topically 4 (four) times a day as needed for mild pain. 30 g 1 4 04/16/20 25 Discontinu ed(Med List Clean-up/O ld Med - No E-Cancel/N o AVS) nitroglycerin (RECTIV) 0.4 % rectal ointmentIndicat ions:Anal fissure 0.3 inches by Intra-anal route 2 (two) times a day. 30 g 1 4 04/16/20 25 Discontinu ed(Med List Clean-up/O ld Med - No E-Cancel/N o AVS) ferrous sulfate 325 (65 FE) MG tablet Take 1 tablet (325 mg total) by mouth daily. Take 2 hours before or 4 hours after acid reducers. 04/16/20 Discontinu ed(Med List Clean-up/O ld Med - No E-Cancel/N o AVS) lidocaine (XYLOCAINE) 5 % ointment Apply topically 4 (four) times a day as needed for mild pain. 30 g 4 04/16/20 25 Discontinu ed(Med List Clean-up/O ld Med - No E-Cancel/N o AVS) ibuprofen (MOTRIN) 400 MG tablet Take 1 tablet (400 mg total) by mouth 3 times daily (every 8 hours) as needed for mild pain. 21 tablet 04/16/20 Discontinu ed(Med List Clean-up/O ld Med - No E-Cancel/N o AVS) polyethylene glycol (miraLAx) 17 g packet Take 1 packet (17 g total) by mouth daily. 14 packet 04/16/20 Discontinu ed(Med List Clean-up/O ld Med - No E-Cancel/N o AVS) Active Problems Problem Noted Date Diagnosed Date Abdominal pain 04/17/2025 Assessment & Plan (04/17/2025 1:19 PM EDT): Presumably secondary to splenic infarct - Continue IV Dilaudid through today then will trial transition to oral pain medications Splenic infarct 04/16/2025 Assessment & Plan (04/17/2025 1:19 PM EDT): Has history of sickle cell trait but [...] question of possible laceration. If he remains stable on heparin for the next 24 hours we will transition to DOAC tomorrow. - Continue fluids and supportive care Sickle cell trait 04/16/2025 Assessment & Plan (04/17/2025 1:19 PM EDT): Has history of sickle cell trait but [...] question of possible laceration. If he remains stable on heparin for the next 24 hours we will transition to DOAC tomorrow. - Continue fluids and supportive care Gastro-esophageal reflux disease without esophag itis 01/22/2024 Iron deficiency anemia 01/22/2024 Leukopenia 01/22/2024 Thrombocytopenia 01/22/2024 Assessment & Plan (04/17/2025 9:27 AM EDT): In the setting of splenomegaly Anemia 09/21/2023 Assessment & Plan (04/17/2025 1:19 PM EDT): Chronic in the setting of sickle cell trait with some prior evidence of iron deficiency. - Follow-up iron panel. Will replete with IV iron if low. - Hemoglobin electrophoresis ordered - Patient does not except blood transfusions, Mandaeism Elevated bilirubin 09/21/2023 Assessment & Plan (04/17/2025 1:19 PM EDT): No RUQ pain - Trend LFTs Resolved Problems Problem Noted Date Diagnosed Date Resolved Date Enteritis 09/21/2023 07/16/2024 Encounters Date Type Department Care Team Description 04/16/2025 9:40 AM EDT - 04/18/2025 11:54 AM EDT Hospital Encounter [address] [phone] Patrikc Harkins MD Mahmud, MD Kirt Ritchie Madiha, MD Wamsele, Joyce C, MD Splenic infarct (Primary Dx); Abdominal pain Discharge Disposition: Home or Self Care 04/16/2025 Travel 04/11/2025 2:54 AM EDT - 04/11/2025 7:02 AM EDT Emergency [facility] Emergency Department [address] [place] [address] Sugar Smith MD Abdominal pain (Primary Dx); Thrombocytopenia Discharge Disposition: Home or Self Care 04/11/2025 Travel from Last 3 Months Family History Medical History Relation Name Comments Anemia Mother Relation Name Status Comments Mother Social History Tobacco Use Types Packs/Day Years Used Date Smoking Tobacco: Never Smokeless Tobacco: Never Tobacco Cessation:Counseling Given: Not Answered Alcohol Use Standard Drinks/Week Comments Yes 0 (1 standard drink = 0.6 oz pur e alcohol) social [facility] Utilities Answer Date Recorded In the [...] any time in the past 12 m [facility] [place], were you homeless or living in a penitentiary (including now)? No 04/17/2025 Sex and Gender Information Value Date Recorded Sex Assigned at Male 06/09/2023 8:17 AM EDT Legal Sex Male 6:41 PM EDT Gender Identity Male 06/09/2023 8:17 AM EDT Sexual Orientation Pansexual 04/28/2024 7: 04 AM EDT Last Filed Vital Signs Vital Sign Reading [...] Mass Index 25.27 04/16/2025 2:26 PM EDT Plan of Treatment Upcoming Encounters Date Type Department Care Team (Late st Contact Info) Description 05/11/2025 3:00 PM EDT Consult [facility] Department Of Hematology/Oncology [place] [address] [place] [address] [address] [place] [address] Gary Jeffery MD [address] [facility] [address] [place] [address] Health Maintenance Due Date Last Done Comments Hepatitis C Virus Screening 1995 DTaP/Tdap/Td Vaccines (1 - Tdap) 12/06/2014 Hepatitis B Vaccines (1 of 3 - 19+ 3-dose series) 12/06/2014 HPV Vaccines (1 - 3-dose SCD M series) 12/06/2022 COVID-19 Vaccine (2023-2 5 season) 2024 Influenza Vaccine 03/20/2025 06/26/2018 HIV Screening Completed 02/27/2024, 09/20/2023 Pneumococcal Vaccine: Pediatric (0-5 Years) and At-Risk Patients (6 to 49 Years) Aged Out No longer eligible b ased on patient's age to complete this topic Procedures Procedure Name Priority Date/Time Associated Diagnosis Comments HEPARIN ASSAY (ANTI-XA) Routine 04/18/20 5:53 AM EDT BASIC METABOLIC PANEL Routine 04/18/2025 5:53 AM EDT COMPLETE BLOOD COUNT, WITHOUT DIFFERENTIAL Routine 04/18/2025 5:53 AM EDT HEPARIN ASSAY (ANTI-XA) Routine 04/17/20 8:45 PM EDT SICKLE CELL SCREEN REFLEX TO HGB ELECTROPHORESIS Routine 04/17/2025 4:10 PM EDT HEPATIC FUNCTION PANEL Routine 4:10 PM EDT HEPARIN ASSAY (ANTI-XA) Routine 04/17/20 4:10 PM EDT ECHOCARDIOGRAM (TTE) COMPREHENSIVE (CONTRAST PRN) Routine 04/17/2025 9:13 AM EDT PROTIME-INR STAT 04/17/2025 8:11 AM EDT COMPLETE BLOOD COUNT, WITHOUT DIFFERENTIAL STAT 04/17/2025 8:11 AM EDT PARTIAL THROMBOPLASTIN TIME (PTT) STAT 04/17/2025 8:11 AM EDT IRON AND TOTAL IRON BINDING CAPACITY Routine 04/17/2025 5:46 AM EDT FERRITIN Routine 04/17/2025 5:46 AM EDT COMPLETE BLOOD COUNT, WITHOUT DIFFERENTIAL Routine 04/17/2025 5:46 AM EDT BASIC METABOLIC PANEL Routine 04/17/2025 5:46 AM EDT HEMOGLOBIN AND HEMATOCRIT Routine 04/17/2025 12:50 AM EDT CTA ABDOMEN+PELVIS W W/O CONTRAST STAT 04/16/2025 9:37 PM EDT HEMOGLOBIN AND HEMATOCRIT Routine 04/16/2025 5:51 PM EDT ECG 12-LEAD Routine 04/16/2025 12:[address] ABDOMEN+PELVIS W/CONTRAST STAT 04/16/2025 10:47 AM EDT LIPASE STAT 04/16/2025 10:04 AM EDT MAGNESIUM STAT 04/16/2025 10:04 AM EDT COMPREHENSIVE METABOLIC PANEL STAT 04/16/2025 10:04 AM EDT COMPLETE BLOOD COUNT, WITH DIFFERENTIAL STAT 04/16/2025 10:[address] ABDOMEN+PELVIS W/CONTRAST STAT 04/11/2025 5:35 AM EDT URINALYSIS WITH REFLEX TO MICROSCOPIC AND CULTURE STAT 04/11/2025 5:11 AM EDT HEPATIC FUNCTION PANEL STAT 5:05 AM EDT LIPASE STAT 04/11/2025 3:12 AM EDT MAGNESIUM STAT 04/11/2025 3:12 AM EDT COMPREHENSIVE METABOLIC PANEL STAT 04/11/2025 3:12 AM EDT COMPLETE BLOOD COUNT, WITH DIFFERENTIAL STAT 04/11/2025 3:12 AM EDT HIV 1/2 AG/AB CMIA REFLEX TO CONFIRMATION STAT 02/27/2024 3:32 PM EDT from Last 3 Months or Most Recently Relevant to Health Maintenance Results * Heparin Assay (Anti Xa) (04/18/2025 5:53 AM EDT) Only the most recent of3 resultswithin the time period is included. Anti Xa 0.30 IU/mL 04/18/2025 6:26 AM EDT [facility] Comment: (NOTE) Heparin Thromboembolic/Standard/Full Dose Protocol: [...] IV HEPARIN, UNFRACTIONATED 04/18/2025 12:45 AM EDT [facility] Blood Blood specimen / Unknown 04/18/2025 5:53 AM EDT 04/18/2025 6:04 AM EDT us Juliet Moralez MD LAB BLOOD ORDERABLES Final Resu lt [address] [address], [address] [address] * (ABNORMAL) Complete Blood Count WITHOUT Differential - Early AM (04/18/2025 5:53 AM EDT) Only the most recent of3 resultswithin the time period is included. White Blood Cell Count 7.5 4.0 - 11.0 Thou/uL 04/18/2025 6:11 AM EDT [facility] Platelet Count 164 150 - 450 Thou/uL 04/18/2025 6:11 AM T [facility] Hemoglobin 11.3(L) 13.0 - 17.7 g/dL 04/18/2025 6:11 AM T [facility] Hematocrit 34.3(L) 39.0 - 54.0 % 04/18/2025 6:11 AM [facility] Red Blood Cell Count 3.86(L) 4.50 - 6.20 Mil/uL 04/18/2025 6:11 AM T [facility] MCV 89 80 - 100 fL 04/18/2025 6:11 AM EDT [facility] MCH 29.3 26.0 - 34.0 pg 04/18/2025 6:11 AM [facility] MCHC 32.9 30.0 - 36.0 g/dL 04/18/2025 6:11 AM [facility] RDW 13.6 11.5 - 14.5 % 04/18/2025 6:11 AM [facility] MPV 10.8 7.5 - 12.5 fL 04/18/2025 6:11 AM [facility] Blood Blood specimen / Unknown 04/18/2025 5:53 AM EDT 04/18/2025 6:04 AM EDT uJliet Moralez MD LAB BLOOD [place] [address], [address] [address] * Basic Metabolic Panel (04/18/2025 5:53 AM EDT) Only the most recent of2 resultswithin the time period is included. Glucose 91 65 - 99 mg/dL 04/18/2025 6:50 AM [facility] Comment:Fasting: <100 mg/dL, Non-Fasting: <200 mg/dL (ADA 2005) Blood Urea Nitrogen (BUN) 10 8 - 21 mg/dL 04/18/2025 6:50 AM [facility] Creatinine 1.0 0.5 - 1.3 mg/dL 04/18/2025 6:50 AM EDT [facility] eGFR >90 >59 04/18/2025 6:50 AM EDT [facility] Comment:CKD-EPI (2020) in mL /min/1.73 sq meters. Sodium 137 136 - 145 mmol/L 04/18/2025 6:50 AM EDT [facility] Potassium 4.3 3.4 - 5.3 mmol/L 04/18/2025 6:50 AM EDT [facility] Chloride 98 98 - 107 mmol/L 04/18/2025 6:50 AM EDT [facility] CO2 25 22 - 33 mmol/L 04/18/2025 6:50 AM EDT [facility] Anion Gap 14 7 - 17 04/18/2025 6:50 AM EDT [facility] Calcium 9.3 8.7 - 10.5 mg/dL 04/18/2025 6:50 AM EDT [facility] BUN/Creatinine Ratio 10 10.0 - 25.0 Ratio 04/18/2025 6:50 AM EDT [facility] Blood Blood specimen / Unknown 04/18/2025 5:53 AM EDT 04/18/2025 6:04 AM EDT us Juliet Moralez MD LAB BLOOD ORDERABLES Final Resu lt [address] [address], [address] [address] * Sickle Cell Screen Reflex to Hgb Electrophoresis (04/17/2025 4:10 PM EDT) Sickle Cell Screen Sent to reference laboratory for hemoglobin electrophoresi s. Negative 04/18/2025 7:06 AM EDT [facility] Blood specimen / Unknown 04/17/2025 4:10 PM EDT 04/17/2025 4:15 PM EDT us Erma Ballesteros MD LAB BLOOD ORDERABLES Final Resul t [address] [address], [facility] [address] [place] [address] * (ABNORMAL) HEPATIC FUNCTION PANEL (04/17/2025 4:10 PM EDT) Only the most recent of2 resultswithin the time period is included. Pathologist [facility] [place] Alkaline Phosphatase 56 45 - 128 U/L 04/17/2025 4:39 PM EDT [facility] Aspartate Aminotrans (AST) 29 10 - 55 U/L 04/17/2025 4:39 PM EDT [facility] Alanine Aminotrans (ALT) 12 10 - 55 U/L 04/17/2025 4:39 PM EDT [facility] Bilirubin, Total 1.6(H) 0.2 - 1.0 mg/dL 04/17/2025 4:39 PM EDT [facility] Protein, Total 6.8 6.3 - 8.3 g/dL 04/17/2025 4:39 PM EDT [facility] Albumin 3.8 3.5 - 5.0 g/dL 04/17/2025 4:39 PM EDT [facility] Bilirubin, Direct 0.4(H) 0.0 - 0.2 mg/dL 04/17/2025 4:39 PM EDT [facility] Globulin 3.0 1.5 - 3.9 g/dL 04/17/2025 4:39 PM EDT [facility] Albumin/Globulin Ratio 1.3 1.0 - 3.0 Ratio 04/17/2025 4:39 PM EDT [facility] 04/17/2025 4:10 PM EDT 04/17/2025 4:15 PM EDT us Erma Ballesteros MD LAB BLOOD ORDERABLES Final Resul t [address] [address], [address] [address] * ECHOCARDIOGRAM COMPREHENSIVE (04/17/2025 9:13 AM EDT) [facility] LV mccarthy vol 3D 194.0 mL LV [...] MD CV ECHO ORDERABLES Final Result * Partial Thromboplastin Time (PTT) (04/17/2025 8:11 AM EDT) Anticoagulant IV HEPARIN, UNFRACTIONATED 04/17/2025 7:53 AM EDT [facility] Partial Thromboplastin Time (PTT) 28 25 - 36 seconds 04/17/2025 8:42 AM EDT [facility] Blood Blood specimen / Unknown 04/17/2025 8:11 AM EDT 04/17/2025 8:15 AM EDT Juliet Moralez MD LAB BLOOD ORDERABLES Final Resu lt [address] [address], [address] [address] * (ABNORMAL) Protime-INR (04/17/2025 8:11 AM EDT) Anticoagulant IV HEPARIN, UNFRACTIONATED 04/17/2025 7:53 AM EDT [facility] Prothrombin Time (PT) 14.1(H) 10.0 - 13.5 seconds 04/17/2025 8:42 AM EDT [facility] INR 1.2 04/17/2025 8:42 AM EDT [facility] Comment:INR Therapeutic Rang es: Standard dose anticoagulant 2.0 to 3.0, High dose anticoagulant 2.5-3.5. Blood Blood specimen / Unknown 04/17/2025 8:11 AM EDT 04/17/2025 8:15 AM EDT Juliet Moralez MD LAB BLOOD ORDERABLES Final Resu lt [address] [address], [address] [address] * (ABNORMAL) Iron and Total Iron Binding Capacity (04/17/2025 5:46 AM EDT) Pathologist [facility] [place] Iron 39(L) 53 - 167 ug/dL 04/17/2025 8:19 AM EDT [facility] UIBC 206 112 - 346 ug/dL 04/17/2025 8:19 AM EDT [facility] Total Iron Binding Capacity 245 100 - 400 ug/dL 04/17/2025 8:19 AM EDT [facility] Iron Sat 16(L) 20 - 50 % 04/17/2025 8:19 AM EDT [facility] 04/17/2025 5:46 AM EDT 04/17/2025 5:50 AM EDT Erma Ballesteros MD LAB BLOOD ORDERABLES Final Resul t Performing Organization Address City/[facility]/[place] [address], [place] [address] * (ABNORMAL) FERRITIN (04/17/2025 5:46 AM EDT) Ferritin 431(H) 30 - 400 ug/L 04/17/2025 8:19 AM EDT [facility] 04/17/2025 5:46 AM EDT 04/17/2025 5:50 AM EDT Erma Ballesteros MD LAB BLOOD ORDERABLES Final Resul t Performing Organization Address City/[facility] [place] [address], [place] [address] * (ABNORMAL) Hemoglobin and Hematocrit (04/17/2025 12:50 AM EDT) Only the most recent of2 resultswithin the time period is included. Hematocrit 29.3(L) 39.0 - 54.0 % 04/17/2025 1:21 AM EDT [facility] Hemoglobin 9.8(L) 13.0 - 17.7 g/dL 04/17/2025 1:21 AM EDT [facility] Blood Blood specimen / Unknown 04/17/2025 12:50 AM EDT 04/17/2025 12:54 AM EDT us Erma Ballesteros MD LAB BLOOD ORDERABLES Final Resul t [facility] [address] [place] [address], [facility] [address] [place] [address] * CTA Abdomen+pelvis w w/o contrast (04/16/2025 [...] ABDOMEN+PELVIS without and with contrast MIP 3-D (30691) EXAM DATE: 04/16/2025 9:29 PM CLINICAL HISTORY: [...] ABDOMEN+PELVIS without and with contrast MIP 3-D (23074) EXAM DATE: 04/16/2025 9:29 PM CLINICAL HISTORY: [...] slightly increasedsince prior exam. No free air. us Melida Kiran MD IMG CT ORDERABLES Final R esult * ECG 12 lead (04/16/2025 12:04 PM EDT) Ventricular rate [address] [facility] Atrial rate 59 BPM EKG [facility] P-R interval 132 ms EKG [facility] QRS duration 84 ms EKG [facility] Q-T interval 422 ms EKG [facility] QTC calculation (Bazett) [address] [facility] P axis 68 degrees EKG [facility] R axis 53 degrees EKG [facility] T axis 49 degrees EKG [facility] 04/16/2025 12:0 4 PM [address] [facility] - 04/16/2025 4:36 PM EDT Sinus bradycardia Nonspecific T wave abnormality Abnormal ECG When compared with ECG of 15-Jan-2022 17:07, Nonspecific T wave abnormality now evident in Inferior leads Nonspecific T wave abnormality now evident in Lateral leads Confirmed by MD Kingsley Joshua ([id number]) on 04/16/2025 4:36:29 PM Procedure Note Jorden Kingsley DO - 04/16/2025 Sinus bradycardia Nonspecific T wave abnormality Abnormal ECG When compared with ECG of 15-Jan-2022 17:07, Nonspecific T wave abnormality now evident in Inferior leads Nonspecific T wave abnormality now evident in Lateral leads Confirmed by MD Kingsley Joshua ([id number]) on 04/16/2025 4:36:29 PM us Erma Ballesteros MD ECG ORDERABLES Final Result EKG [facility] * CT Abdomen+pelvis w/contrast (04/16/2025 10:47 AM EDT) Only the most recent of2 resultswithin the time period is included. Anatomical Region Laterality Modality Abdomen, Pelvis Computed [...] patient having sickle celltrait favor splenic infarction. Patrick Harkins MD IMG CT ORDERABLES Final Result * (ABNORMAL) Complete Blood Count, with Differential (04/16/2025 10:04 AM EDT) Only the most recent of2 resultswithin the time period is included. White Blood Cell Count 9.2 4.0 - 11.0 Thou/uL 04/16/2025 10:26 AM EDT [facility] Platelet Count 128(L) 150 - 450 Thou/uL 04/16/2025 10:26 AM T [facility] Hemoglobin 10.4(L) 13.0 - 17.7 g/dL 04/16/2025 10:26 AM T [facility] Hematocrit 31.6(L) 39.0 - 54.0 % 04/16/2025 10:26 AM [facility] Red Blood Cell Count 3.52(L) 4.50 - 6.20 Mil/uL 04/16/2025 10:26 AM [facility] MCV 90 80 - 100 fL 04/16/2025 10:26 AM [facility] MCH 29.5 26.0 - 34.0 pg 04/16/2025 10:26 AM [facility] MCHC 32.9 30.0 - 36.0 g/dL 04/16/2025 10:26 AM [facility] RDW 13.8 11.5 - 14.5 % 04/16/2025 10:26 AM [facility] MPV 11.5 7.5 - 12.5 fL 04/16/2025 10:26 AM [facility] Immature Platelet Fraction 5.4 1.2 - 8.6 % 04/16/2025 10:26 AM [facility] Neutrophils Auto 79.3 % 04/16/20 10:26 AM [facility] Immature Granulocytes 0.4 % 04/16/2025 10:26 AM [facility] Lymphocytes Auto 12.8 % 04/16/20 10:26 AM [facility] Monocytes Auto 6.4 % 04/16/2025 10:26 AM [facility] Eosinophils Auto 0.9 % 04/16/20 10:26 AM [facility] Basophils Auto 0.2 % 04/16/2025 10:26 AM [facility] Abs Neutrophils Auto 7.31 2.00 - 7.50 Thou/uL 04/16/2025 10:26 AM [facility] Abs Immature Granulocytes 0.04 0.00 - 0.10 Thou/uL 04/16/2025 10:26 AM [facility] Abs Lymphocytes Auto 1.18(L) 1.50 - 4.50 Thou/uL 04/16/2025 10:26 AM [facility] Abs Monocytes Auto 0.59 0.20 - 1.50 Thou/uL 04/16/2025 10:26 AM [facility] Abs Eosinophils Auto 0.08 0.00 - 0.70 Thou/uL 04/16/2025 10:26 AM EDT [facility] Abs Basophils Auto 0.02 0.00 - 0.20 Thou/uL 04/16/2025 10:26 AM EDT [facility] Blood Blood specimen / Unknown 04/16/2025 10:04 AM EDT 04/16/2025 10:12 AM EDT Patrick Harkins MD LAB BLOOD [place] [address], [place] [address] * Magnesium (04/16/2025 10:04 AM EDT) Only the most recent of2 resultswithin the time period is included. Magnesium 2.0 1.6 - 2.7 mg/dL 04/16/2025 10:36 AM EDT [facility] Blood Blood specimen / Unknown 04/16/2025 10:04 AM EDT 04/16/2025 10:12 AM EDT Patrick Harkins MD LAB BLOOD ORDERABLES Final Resu lt Performing Organization Address City/[facility]/[place] [address], [place] [address] * Lipase (04/16/2025 10:04 AM EDT) Only the most recent of2 resultswithin the time period is included. Lipase 16 13 - 60 U/L 04/16/2025 10:36 AM EDT [facility] Blood Blood specimen / Unknown 04/16/2025 10:04 AM EDT 04/16/2025 10:12 AM EDT Patrick Harkins MD LAB BLOOD ORDERABLES Final Resu lt Performing Organization Address City/[facility]/[place] [address], [address] [place] [address] * (ABNORMAL) Comprehensive Metabolic Panel (04/16/2025 10:04 AM EDT) Only the most recent of2 resultswithin the time period is included. Glucose 98 65 - 99 mg/dL 04/16/2025 10:36 AM [facility] Comment:Fasting: <100 mg/dL, Non-Fasting: <200 mg/dL (ADA 2005) Blood Urea Nitrogen (BUN) 11 8 - 21 mg/dL 04/16/2025 10:36 AM [facility] Creatinine 1.0 0.5 - 1.3 mg/dL 04/16/2025 10:36 AM [facility] eGFR >90 >59 04/16/2025 10:36 AM [facility] Comment:CKD-EPI (2020) in mL /min/1.73 sq meters. Sodium 138 136 - 145 mmol/L 04/16/2025 10:36 AM [facility] Potassium 4.4 3.4 - 5.3 mmol/L 04/16/2025 10:36 AM [facility] Chloride 100 98 - 107 mmol/L 04/16/2025 10:36 AM [facility] CO2 25 22 - 33 mmol/L 04/16/2025 10:36 AM [facility] Calcium 9.3 8.7 - 10.5 mg/dL 04/16/2025 10:36 AM [facility] Alkaline Phosphatase 56 45 - 128 U/L 04/16/2025 10:36 AM [facility] Aspartate Aminotrans (AST) 30 10 - 55 U/L 04/16/2025 10:36 AM [facility] Alanine Aminotrans (ALT) 12 10 - 55 U/L 04/16/2025 10:36 AM [facility] Bilirubin, Total 1.9(H) 0.2 - 1.0 mg/dL 04/16/2025 10:36 AM [facility] Protein, Total 6.9 6.3 - 8.3 g/dL 04/16/2025 10:36 AM [facility] Albumin 4.2 3.5 - 5.0 g/dL 04/16/2025 10:36 AM EDT [facility] BUN/Creatinine Ratio 11 10.0 - 25.0 Ratio 04/16/2025 10:36 AM EDT [facility] Globulin 2.7 1.5 - 3.9 g/dL 04/16/2025 10:36 AM EDT [facility] Albumin/Globulin Ratio 1.6 1.0 - 3.0 Ratio 04/16/2025 10:36 AM EDT [facility] Anion Gap 13 7 - 17 04/16/2025 10:36 AM EDT [facility] Blood Blood specimen / Unknown 04/16/2025 10:04 AM EDT 04/16/2025 10:12 AM EDT Patrick Harkins MD LAB BLOOD [place] [address], [place] [address] * (ABNORMAL) Urinalysis with Reflex to Microscopic and Culture (04/11/2025 5:11 AM EDT) Color Yellow 04/11/2025 5:49 AM EDT [facility] Clarity Clear 04/11/2025 5:49 AM EDT [facility] Specific [place] 1.021 1.005 - 1.030 04/11/2025 5:49 AM EDT [facility] pH 5.0 5.0 - 8.0 04/11/2025 5:49 AM EDT [facility] Leukocyte Esterase Negative Negative 04/11/2025 5:49 AM EDT [facility] Nitrite Negative Negative 04/11/2025 5:49 AM EDT [facility] Protein Small (30 mg/dL)(A) Negative mg/dL 04/11/2025 5:49 AM EDT [facility] Glucose Negative Negative mg/dL 04/11/2025 5:49 AM EDT [facility] Ketones Trace(A) Negative mg/dL 04/11/2025 5:49 AM EDT [facility] Blood Negative Negative 04/11/2025 5:49 AM EDT [facility] Bilirubin Negative Negative 04/11/2025 5:49 AM EDT [facility] WBC 1 0 - 4 per hpf 04/11/2025 5:49 AM EDT [facility] RBC 0 0 - 4 per hpf 04/11/2025 5:49 AM EDT [facility] Amorphous Crystals Present 04/11/2025 5:49 AM EDT [facility] Urine Urine specimen obtained by clean catch procedure / Unknown 04/11/2025 5:11 AM EDT 04/11/2025 5:16 AM EDT us Sugar Smith MD URINE ORDERABLES Final R esult Performing Organization Address [facility] [place] [address], [place] [address] * HIV 1/2 Ag/Ab CMIA Reflex to Confirmation (02/27/2024 3:32 PM EDT) HIV 1/2 Ag/Ab CMIA Nonreactive Nonreactive 02/28/2024 10:50 AM EDT [facility] Comment: Results show no evidence of infection by HIV 1/2. If clinically indicated, repeat CMIA or test by nucleic acid amplification. HIV 1/2 Antigen/Antibody CMIA reflex to confirmation AND HIV-1 RNA viral load recommended in patients who are taking or have recently taken PrEP. Blood Serum specimen / Unknown 02/27/2024 3:32 PM EDT 02/27/2024 3:39 PM EDT us Patrick Esquivel MD LAB BLOOD ORDERABLES Fi nal Result [facility] [address] from Last 3 Months or Most Recently Relevant to Health Maintenance Insurance [facility] Advance Directives * Full Code (Latest Code Status on File) Date Activated Date Inactivated Comments 04/16/2025 12:32 PM * Full Code Date Activated Date Inactivated Comments 01/22/2024 11:05 AM 02/27/2024 1:23 PM * Full Code Date Activated Date Inactivated Comments 09/21/2023 3:45 PM 10/05/2023 3:55 PM * DNR Date Activated Date Inactivated Comments 09/21/2023 9:31 AM 09/21/2023 3:45 PM Question Answer Comments Decision thoroughly discussed with: Patient * Full Code Date Activated Date Inactivated Comments 09/21/2023 6:09 AM 09/21/2023 9:31 AM Care Teams Neuro Psych Sales Specialist Relationship Specialty Start Date End Date [facility] [address] [place] [address] PCP - General 10/05/23
--- OUTSIDE RECORDS SUMMARY | 2025-04-18 20:12 | XMS_ITS | Patient Health Record ---
Author Organization Formerly [facility] [employer] Address [address] [place] [address] Care Team Providers Care Manager Van Name Role Phone Jahaira Mcmillan Primary Care Provider Rogelio Hu Unavailable [phone] Michael Estrada Unavailable [phone] Allergies No Known Allergies Reason For Referral No Information Immunizations Vaccine Route Administration Date Status Comme nts DT ([facility] Imported) 28 Unknown 04/07/1996 Administered DT ([facility] Imported) 28 Unknown 06/09/1996 Administered DT ([facility] Imported) 28 Unknown 02/02/1997 Administered DTaP ([facility] Imported) 107 Unknown 01/23/1996 Administer ed Hep A Pediatric 2 Dose (CTWi z Imported) 83 Unknown 03/02/2008 Administered Hep B ([facility] Imported) 45 Unknown 1995 Administer ed Hep B ([facility] Imported) 45 Unknown 01/23/1996 Administer ed Hep B ([facility] Imported) 45 Unknown 09/17/1996 Administer ed Hib Unspecified ([facility] Imported) 17 Unknown 01/23/1996 Administered Hib Unspecified ([facility] Imported) 17 Unknown 04/07/1996 Administered Hib Unspecified ([facility] Imported) 17 Unknown 06/09/1996 Administered Hib Unspecified ([facility] Imported) 17 Unknown 02/02/1997 Administered Influenza ([facility] Imported) 150 Unknown 06/26/2018 Admin istered Influenza (Declined) Unknown 08/02/2020 Refused Influenza (Declined) Unknown 06/11/2023 Refused MMR ([facility] Imported) 03 Unknown 02/02/1997 Administered MMR ([facility] Imported) 03 Unknown 03/18/2001 Administered Polio tOPV (before 08/20/1999 [place] and [place] [facility] Imported) 02 Unknown 01/23/1996 Administered Polio tOPV (before 08/20/1999 [place] and [place] [facility] Imported) 02 Unknown 04/07/1996 Administered Polio tOPV (before 08/20/1999 [place] and [place] [facility] Imported) 02 Unknown 02/02/1997 Administered Tdap ([facility] Imported) 115 Unknown 03/31/2005 Administer ed Varicealla ([facility] Imported) 21 Unknown 10/12/1997 Admin istered Varicealla ([facility] Imported) 21 Unknown 03/02/2008 Admin istered Social History Tobacco Use: Social History Observation [...] months Yes with Both Men and Women Problems Problem Type SNOMED Code ICD Code Onset Dates Problem Status W/U Status Risk Notes Problem 86163848 Other chronic pa in (G89.29) Active confirmed Problem Information temporarily unavailable Thrombocytopenia (D69.6) Active confirmed Problem 27161530 Cannabis depende nce (F12.20) Active confirmed Problem Information temporarily unavailable Major depressive disorder, recurrent, severe w/o psychotic behavior (F33.2) Active confirmed Problem 30936931 Constipation, unspecified constipation type (K59.00) Active confirmed Problem 342375578 Bipolar depressi on (F31.9) Active confirmed Problem Information temporarily unavailable Transaminitis (R74.01) Active confirmed Vital Signs Temperature 98.4 degrees Fahrenheit 04/16/2025 Respiratory Rate 18 /min 04/16/2025 Oximetry 95 % 04/16/2025 Blood pressure diastolic 76 mm Hg 04/16/2025 Height 69 in 04/16/2025 Blood pressure systolic 133 mm Hg 04/16/2025 Weight 174.4 lbs 04/16/2025 BMI 25.75 kg/m2 04/16/2025 Encounters Encounter Location Date Provider Diagnosis [address] [place] [address] 10/13/2024 Rogelio Hu Well adult exam Z00. 00 and Body mass index (BMI) 25.0-25.9, adult Z68.[address] [place] [address] 04/16/2025 Jahaira Deyanira Acute abdominal pain R10.9 ; Shortness of breath R06.02 and Thrombocytopenia D69.[address] [place] [address] 04/13/2025 Michael Estrada Left lower quadrant pain [...] applies when carrying over a previous visit. 04/16/2025 Shortness of breath (ICD-10 - R06.02) 10/13/2024 Well adult exam (ICD-10 - Z00.00) stressed importance of maintaining a healthy immune system-getting enough sleep,exercising and eating healthy to prevent future outbreaks of hsv. he is 28 so he doesnt need any labs at this time. knows he can seek care if his mood gets worse 04/16/2025 Acute abdominal pain (ICD-10 - R10.9) 10/13/2024 Body mass index (BMI ) 25.0-25.9, adult (ICD-10 - Z68.25) 04/16/2025 Thrombocytopenia (ICD-10 - D69.6) -review of labs from ED visit demonstrating platelet count of 76. low chronic anemia evident per previous blood work, H/H improving from previous currently ~. 04/13/2025 Hepatosplenomegaly (ICD-10 - R16.2) Coding: Use UPDATED E&M code. Also applies when carrying over a previous visit. 04/16/2025 Other -Limited exam performed in favor of expedited transfer to higher level of care. -[facility] contacted and verbal report given to Mercedes through Beds to notify of pending arrival. Plan Of Treatment Pending Test Test Name Order Date Comp Metabolic Panel w/eGFR 82856 2020 Comp Metabolic Panel w/eGFR 47366 2022 RPR (Dx) wTiter & conf rfx 58553 023 Urinalysis,Complete 5463 08/23/2020 Sodium,Random Urine (w/Creat) 8514 08/23 BUN/Creatinine Ratio 296 04/10/2023 HCV Ab w/ refl to HCV RNA, QN PCR 8472 0 12/17/2022 Creatinine,Random Urine 8459 08/23/2020 Chlamydia Trachomatis/Neisseria Gonorrhe ae, RNA, TMA, Throat 99696 09/26/2022 Chlamydia Trachomatis/Neisseria Gonorrhe ae, RNA, TMA, Throat 04565 09/26/2022 Chlamydia Trachomatis, RNA, TMA, Rectal 65266 09/15/2023 Chlamydia Trachomatis, RNA, TMA, Throat 39797 09/15/2023 Chl/GC aptima urine/endocervical/urethal 96848 09/26/2022 Chl/GC aptima urine/endocervical/urethal 06633 09/26/2022 Hepatitis Panel, Chronic w reflex C2229 08/23/2020 HIV 1 /HIV-2 Screen [id number] 12/17/2022 HIV 1 /HIV-2 Screen [id number] 04/10/2023 Chlamydia/Neisseria gonorrhoeae RNA, TMA , Rectal 09187 09/26/2022 Insurance Providers Payer Name Payer Address Payer Phone Subscriber Number Group Number Insured Name Patient Relationship to Insured Coverage Start Date Coverage End Date Medicaid Max [email or web address] [address] [phone] [id number] Herbert Kingon Self - patient is the insured Medicaid [place] [address] [phone] [id number] Neil King Self - patient is the insured Medical (General) History Medical History History ICD Code bipolar disorder Surgical History Surgery Date(Month/Year) Hospitalization History Reason Date(Month/Year) Shigella enteritis 2023
--- OUTSIDE RECORDS SUMMARY | 2025-04-18 20:12 | XMS_ITS | Encounter Summary ---
Author Organization [facility] Address [address] [place] [address] Care Team Providers Care Caustic Strength Inspector Name Role Phone [facility], [facility] Primary Care Provider + Richard Velásquez MD Primary Care Provider [phone] [facility], [facility] Primary Care Provider + Encounter Details Date Type Department Care Team (Late st Contact Info) Description 11/08/2021 Prep for Surgery [facility] [address] [place] [phone] Oliverio Lozano, DO [address] [place] [address] Social History Tobacco Use Types Packs/Day Years [...] Info) Description 05/11/2025 3:00 PM EDT Consult [facility] Department Of Hematology/Oncology [place] [address] [place] [address] Gary Jeffery MD [address] [place] [address] documented as of this encounter Visit Diagnoses Not on filedocumented in this encounter Additional Health Concerns Infection Onset Date Last Indicated Resolved Time R/O Gastrointestinal Infection 09/21/2023 09/21/2023 09/21/2023 1:47 PM EST R/O C. Difficile Comment:C.diff negative. 09/21/2023 09/21/2023 09/21/2023 12:3 7 PM EST Gastroenteritis 09/21/2023 09/21/2023 09/23/2023 1 1:42 PM EST documented as of this encounter Care Teams Caustic Strength Inspector Relationship Specialty Start Date End Date [facility] [address] [place] [address] PCP - General 08/02/20 03/04/23 Richard Velásquez MD [address] [place] [address] PCP - General Internal Medicine 03/05/23 10/04/23 [facility] [address] [place] [address] PCP - General 10/05/23 documented as of this encounter
--- OUTSIDE RECORDS SUMMARY | 2025-04-18 20:12 | XMS_ITS | Patient Health Record ---
Author Organization [facility] Address [address] [place] [address] Care Team Providers Care Store Detective Name Role Phone AtulCarlosJackie Primary Care Provider Reason For Referral No Information Medications Medication SIG (Take, Route, Fr equency, Duration) Notes Start Date End Date Status Trileptal 300 MG 1 tablet Orally daily at bedtime Active Vistaril 50 mg 1 capsule as needed Orally daily at bedtime Active Social History Tobacco Use: Social History Observation Description Date Details (start date - stop date) Never Smoker NA - NA * Tobacco Use/Smoking assessment Question Answer Notes Are you a nonsmoker SBIRT Question Answer Notes Patient refused/declined SBIRT screening at this time? No In the past 3 months, how of ten do you have a drink containing alcohol? Never In the past 3 months, how of ten do you have 4 or more drinks on one occasion? Females (and Males 65 and older). In the past 3 months, how often do you have 5 or more drinks on one occasion? Males (younger than 65) Never In the past 12 months, did y ou smoke pot, use another street drug, or use a prescription painkiller, stimulant, or sedative for a non-medical reason? No The cumulative score is 0 A referral is not needed Problems Problem Type SNOMED Code ICD Code Onset Dates Problem Status W/U Status Risk Notes Problem Information temporarily unavailable PTSD (post-traumatic stress disorder) (F43.10) Active confirmed Problem Information temporarily unavailable Anxiety (F41.9) Active confirmed Problem Information temporarily unavailable Bipolar 1 disorder (F31.9) Active confirmed Problem Information temporarily unavailable Pure hypercholesterolemia (E78.00) Active confirmed Plan Of Treatment Pending Test Test Name Order Date MRI : Knee, left 08/24/2020 Insurance Providers Payer Name Payer Address Payer Phone Subscriber Number Group Number Insured Name Patient Relationship to Insured Coverage Start Date Coverage End Date CHARLY [address]AM[address]CA [address] [place] [id number] Neil King Self - patient is the insured Medical (General) History Surgical History Surgery Date(Month/Year)
--- OUTSIDE RECORDS SUMMARY | 2025-04-18 20:12 | XMS_ITS | Encounter Summary ---
Author Organization [facility] Address [address] [place] [address] Care Team Providers Care Drier Belt Conveyor Name Role Phone [facility], [facility] Primary Care Provider + Encounter Details Date Type Department Care Team (Latest Contact Info) Description 04/16/2025 Travel Social History Tobacco Use Types Packs/Day Years Used Date Smoking Tobacco: Never Smokeless Tobacco: Never Alcohol Use Standard Drinks/Week Comments Yes 0 (1 standard drink = 0.6 oz pur e alcohol) social [employer] Utilities Answer Date Recorded In the past 12 months has [employer] electric, gas, oil, or water company threatened [...] any time in the past 12 m [facility], were you homeless or living in a residential (including now)? No 04/17/2025 Sex and Gender Information Value Date Recorded Sex Assigned at Male 06/09/2023 8:17 AM EDT Legal Sex Male 6:41 PM EDT Gender Identity Male 06/09/2023 8:17 AM EDT Sexual Orientation Pansexual 04/28/2024 7: 04 AM EDT documented as of this encounter Functional Status * Audit-C Score [...] doing things Several days 04/16/2025 2:00 PM FIORELLAT Elisabeth Connor RN Feeling down, depressed, or hopeless Several days 04/16/2025 2:00 PM EDT Elisabeth Connor RN * Over the past 2 weeks, how often have you been bothered by any of the following problems? Question Answer Date of Assessment Author Patient Health Questionnaire -2 Score 2 04/16/2025 2:00 PM EDT Elisabeth Connor RN documented as of this encounter Plan of Treatment Upcoming Encounters Date Type Department Care Team (Late st Contact Info) Description 05/11/2025 3:00 PM EDT Consult [facility] Department Of Hematology/Oncology [place] [address] [place] [phone] Gary Jeffery MD [address] [facility] [address] [place] [address] documented as of this encounter Visit Diagnoses Not on filedocumented in this encounter Care Teams Drier Belt Conveyor Relationship Specialty Start Date End Date [facility] [address] [place] [address] PCP - General 10/05/23 documented as of this encounter
[2025-04-18 20:14] LABS: Troponin-I High Sensitivity < 2.7 ng/L (<3.5-35.0)
--- NOTE | 2025-04-18 20:21 | ED_ITS ---
HPI - General Adult General Chief complaint: General Medical Stated complaint: dizzy, diaphoretic, near syncope Time Seen by Provider: 04/18/25 20:16 Source: patient Limitations: no limitations History of Present Illness ED Provider: Salina Argueta PA-C HPI narrative: 29-year-old male with self report of recent splenic thrombus who just started on Eliquis yesterday, after assessment at an outside facility and [place], presents with near-syncope. Patient was standing in line at a marijuana distribution center, he felt diaphoretic, dizzy and nauseous. There was no loss of consciousness. Patient states he had preceding left upper abdominal discomfort prior to the onset of his near syncopal symptoms. Denies associated palpitations, chest pain, shortness of breath. Patient is back to his baseline, he declines further assessment in his eager for discharge. Related Data Allergies Allergy/AdvReac Type Severity Reaction Status Date / Time No Known Allergies Allergy Verified 04/18/25 19:34 Review of Systems 2 Review of Systems: Yes all other systems are reviewed and are negative Constitutional: Constitutional: Denies fatigue, Denies fever(s) and Denies headache(s) ENT: Reports dizziness and Denies headache(s) Cardiovascular: Cardiovascular: Denies chest pain, Denies syncope, Denies palpitations and Denies dyspnea Respiratory: Respiratory: Denies dyspnea Gastrointestinal: Gastrointestinal: Reports abdominal pain, Reports nausea and Denies vomiting Neurologic: Reports dizziness, Denies syncope and Denies headache(s) Endocrine: Endocrine: Denies fatigue and Denies palpitations PMFSH Past Medical History Attestation statement: The following information was validated with the patient. Social History Social History Advance Directives: No Advance Directives Information Provided: No Do you have a plan to hurt others: No Plan Physical Exam ED Vital Signs: Vital Signs - 24 hr 04/18/25 19:30 04/18/25 19:57 Temperature 98.2 F 97.6 F Pulse Rate 68 79 Respiratory Rate 22 H 16 Blood Pressure 104/59 L 115/59 L Pulse Oximetry 98 Oxygen Delivery Method Room Air Room Air BMI result Body Mass Index 25.4 Const Other: Alert well-appearing Orientation/consciousness: patient oriented x3 HENMT Other: Smells of marijuana Resp Effort & Inspection: normal respiratory effort Cardio Other: Normal peripheral perfusion Skin Other: Warm dry no rash Neuro General: patient oriented x3, gait normal, no focal motor deficits and CN's II- XI intact bilaterally Psych Other: Cooperative Medical Decision Making Medical Decision Making [facility] Narrative: 29-year-old male with self report of recent splenic thrombus who just started on Eliquis yesterday, after assessment at an outside facility and [place], presents with near-syncope. Patient was standing in line at a marijuana distribution center, he felt diaphoretic, dizzy and nauseous. There was no loss of consciousness. Patient states he had preceding left upper abdominal discomfort prior to the onset of his near syncopal symptoms. Denies associated palpitations, chest pain, shortness of breath. Patient is back to his baseline, he declines further assessment in his eager for discharge. The patient is choosing to leave against medical advice. Given concurrent left upper abdominal discomfort prior to the onset of his symptoms, I would optimally be ordering a CT scan of the abdomen and pelvis. I explained to the patient that given his new diagnosis, with new onset pain in the setting of a near syncopal episode, it is concerning. He declines further assessment, he states he will follow up with his doctor, he is eager for discharge and willing to signed out against medical advice. I have independently reviewed the following tests: Labs: No leukocytosis, not anemic, no electrolyte abnormality noted EKG: Normal sinus rhythm, rate of 68, no ischemic changes no ectopy, QTC 444 Differential Diagnosis Differential Diagnoses: The differential diagnosis associated with the presentation includes See [facility] Admission/Observation Consideration of admission/observation: Escalation of care including admission/observation considered Not applicable Lab Data [facility] Lab Attestation statement: I reviewed the patient's lab results. 04/18/25 19:41 04/18/25 19:41 Labs: Lab Results 04/18/25 Range/Units 19:41 WBC 7.4 (4.8-10.8) X10*3/uL RBC 3.52 L (4.60-5.80) X10*6/uL Hgb 10.5 L (14.0-18.0) g/dl Hct 30.3 L (42.0-52.0) % MCV 86.1 (80.0-98.0) fL MCH 29.8 (27.0-33.0) pg MCHC 34.7 (31.0-36.0) g/dl RDW 13.6 (11.0-16.0) % Plt Count 210 (160-400) X10*3/uL MPV 9.9 (9.4-12.4) fL Immature Gran % (Auto) 0.4 (0.0-0.4) % Neut % (Auto) 80.3 H (45-73) % Lymph % (Auto) 10.5 L (20-40) % [place] % (Auto) 7.8 (2-11) % Eos % (Auto) 0.7 (0-4) % Baso % (Auto) 0.3 (0-2) % Lymph # (Auto) 0.8 L (1.2-4.9) X10*3/uL [place] # (Auto) 0.6 (0.1-1.2) X10*3/uL Eos # (Auto) 0.1 (0.0-0.4) X10*3/uL Baso # (Auto) 0.0 (0.0-0.2) X10*3/uL Abs Immat Gran (auto) 0.03 (0.00-0.03) X10*3/uL Absolute Neuts (auto) 5.9 (2.0-8.3) x10*3/uL Absolute Nucleated RBC 0.000 (0.0-0.012) X10*3/uL Nucleated RBC % (auto) 0.0 (0.0-0.2) /100WBC PT 15.3 H (10.9-12.4) SEC INR 1.3 H (0.9-1.1) Sodium 143 (135-145) mmol/L Potassium 3.8 (3.3-5.1) mmol/L Chloride 105 (96-108) mmol/L Carbon Dioxide 26 (22-29) mmol/L Anion Gap 16 (12-20) BUN 16 (9-16) mg/dL Creatinine 1.25 (0.5-1.4) mg/dL Estim Creat Clear Calc 87.1 Estimated GFR > 60 Random Glucose 138 H (60-115) mg/dL Calcium 8.8 (8.4-10.2) mg/dL Magnesium 2.2 (1.6-2.6) mg/dL Total Bilirubin 2.0 H (0.0-1.0) mg/dL AST 35 (5-37) U/L ALT 14 (0-40) U/L Alkaline Phosphatase 61 (39-117) U/L Troponin I High Sens < 2.7 (<3.5-35.0) ng/L Total Protein 6.8 (6.5-8.0) g/dL Albumin 4.0 (3.5-5.0) g/dL Independent Interpretation I performed an independent interpretation of an: EKG Discharge Plan Discharge Clinical Impression: Vasovagal near syncope Patient Disposition: Left Against Medical Advice Instructions: Near Syncope (ED) Stand Alone Forms: Against Medical Advice Print Language: Vincentian
[2025-04-18 20:23] VITALS: BP 115/59; PULSE 79; RESP 16; TEMP 36.4; O2SAT 98
[2025-04-18 20:55] LABS: COVID-19 Test Negative (Negative); IDNOW Serial# 55D5AD1C; IDNOW Serial# 6674DD1D; Influenza B2 Negative (Negative)
== END 2025-04-18 20:34 | disposition left against medical advice (07) ==
PROVIDERS: Emergency Provider Emergency Medicine
DX: R55 Syncope and collapse (principal); R42 Dizziness and giddiness; R11.0 Nausea; R10.12 Left upper quadrant pain; Z79.01 Long term (current) use of anticoagulants; Z79.899 Other long term (current) drug therapy; Z11.52 Encounter for screening for COVID-19; Z03.818 Encounter for observation for suspected exposure to other biological agents ruled out
CPT/HCPCS: 36415; 80053; 83735; 84484; 85025; 85610; 87502; 87635; 93005; 99283; 99284

== ENCOUNTER → 2025-04-18 19:24 | Outpatient (BNV) | payer OTHER, SELFPAY | PROVIDERS: Emergency Provider Emergency Medicine; Visit Provider Internal Medicine | DX: R55 Syncope and collapse (principal) | CPT/HCPCS: 93010 ==